=== PATIENT | female | born 1955 | race Caucasian/White ===

== ENCOUNTER 2016-11-12 10:54 | Emergency (ER) | payer OTHER ==
[~2016-11-12] VITALS: Ht 167.6 cm; Wt 68.0 kg
[~2016-11-12 10:54] MED LIST: ADDE30TA PO; ALBU1AER5 INH; ALPR2TAB3 PO; ASPI325T PO; CEFT250T8 PO; FURO1TAB60 PO; FURO20TA PO; METH10CO PO; OXYGENTANK NAS.CANULA; POTA-243 PO; SYMB160A INH; TEMA30CA PO; ZITH250T PO
[2016-11-12 10:56] VITALS: BP 139/66; PULSE 76; RESP 20; TEMP 97.8; O2SAT 95
--- NOTE | 2016-11-12 11:07 | PD ---
Physical Exam Time Seen by Provider: 11:05 Narrative 61yo F c/o fall on L side 4 days ago w/ L hip pain. Unknown if hit head. Denies LOC. Denies anticoagulants. Patient seen in triage. Awaiting bed placement. VS reviewed. Data Data Last Documented VS Vital Signs Date Time Temp Pulse Resp B/P Pulse Ox O2 Delivery O2 Flow Rate FiO2 11/12/16 10:56 97.8 76 20 139/66 95 Room Air MDM Supervised Visit with SAMEERA: Laurel Baez Nov 12, 2016 11:07
--- NOTE | 2016-11-12 11:55 | RADRPT ---
EXAM DATE/TIME: 11/12/2016 11:30 [facility] COMPARISON: No previous studies available for comparison. INDICATIONS : Left hip pain, fall. MEDICAL HISTORY : Stroke. SURGICAL HISTORY : None. ENCOUNTER: Initial ACUITY: 4 - 6 days PAIN SCORE: 10/10 LOCATION: Left hip FINDINGS: The hips are intact with no definite fracture or dislocation. Degenerative changes are present, right worse than left. The bony pelvis is grossly intact. There are vascular calcifications noted incident ally. There is significant degenerative change in the visualized lower lumbar spine. CONCLUSION: No acute bony injury Bernabe Schwartz MD on November 12, 2016 at 11:46 Board Certified Radiologist. This report was verified electronically.
--- NOTE | 2016-11-12 12:03 | PD ---
HPI Chief Complaint: Hip Injury Time Seen by Provider: 11:57 Travel History International Travel<30 days: No Contact w/Intl Traveler<30days: No Traveled to known affect area: No History of Present Illness HPI 61-year-old female with history of left-sided CVA with resultant left-sided hemiplegia here with complaint of left hip pain after fall. Patient had a mechanical fall out of her wheelchair onto the ground several days ago. Initially denied any sort of pain, but over the last several days has noted some bruising on the lateral aspect of the hip with associated pain. She's been able to transfer without any difficulty from her wheelchair to the bed, toilet, etc. Patient is unsure whether she hit her head during the fall but denies any LOC, headache, nausea or vomiting. In a coagulated on aspirin only. PFSH Past Medical History Hx Anticoagulant Therapy: Yes (ASA ) ADHD: Yes Anemia: Yes Arthritis: Yes Anxiety: Yes Heart Rhythm Problems: No Cancer: No Cardiovascular Problems: Yes (CHF) High Cholesterol: No Chemotherapy: No Chest Pain: No Congestive Heart Failure: Yes (2016) COPD: Yes Cerebrovascular Accident: Yes ( L SIDED PARALYSIS ) Diabetes: No Diminished Hearing: No Endocrine: No Gastrointestinal Disorders: No Genitourinary: No Hypertension: No Immune Disorder: No Implanted Vascular Access Dvce: No Musculoskeletal: Yes (MUSCLE SPASMS AND TREMORS) Neurologic: Yes Psychiatric: Yes Reproductive: Yes Respiratory: Yes Radiation Therapy: No Shingles: Yes Thyroid Disease: No ?: Not Menopausal: Yes : 15 Para: 2 Past Surgical History Gynecologic Surgery: Yes (CONE BIOPSY, VULVECTOMY) Other Surgery: Yes (CONE BIOPSY, VULVECTOMY) Social History Alcohol Use: No Tobacco Use: No Substance Use: No Allergies-Medications (Allergen,Severity, Reaction): Coded Allergies: Iodine (Unverified Allergy, Severe, SKIN BREAKOUT, SOB, 04/24/16) Penicillin (Verified Allergy, Severe, 04/24/16) Reported Meds & Prescriptions Reported Meds & Active Scripts Active Oxygen tank (Oxygen) 1 Ea Tank 2 Liter STEVIE.CANULA CONTINUOUS Oxygen Concentrator Portable Gaseous 2 L/min via Nasal Cannula Continuous For 99 months Proair Respiclick Inh (Albuterol Sulfate) 90 Mcg/Act Aerp 1 Puff INH Q4H PRN Lasix (Furosemide) 40 Mg Tab 40 Mg PO DAILY Ceftin (Cefuroxime Axetil) 250 Mg Tab 250 Mg PO BID Zithromax (Azithromycin) 250 Mg Tab 250 Mg PO DIRECTED Take 2 tabs (500 mg) on day 1 then 1 tab daily x 4 days. Klor-Con 10 (Potassium Chloride) 10 Meq Tab 10 Meq PO BID Furosemide 20 Mg Tab 20 Mg PO DAILY Reported Symbicort Inh (Budesonide/Formoterol Fumarate) 160-4.5 Mcg/Act Aero 2 Puff INH Q12HR Temazepam 30 Mg Cap 30 Mg PO HS PRN Methadone Liq (Methadone HCl) 10 Mg/Ml Conc 170 Mg PO DAILY Aspirin 325 Mg Tab 325 Mg PO DAILY Alprazolam 2 Mg Tab 2 Mg PO TID PRN Adderall (Amphetamine-Dextroamphetamine) 30 Mg Tab 30 Mg PO BID Avoid late evening doses. Space doses at least 4 to 6 hours if more than once/day dosing. Review of Systems Except as stated in HPI: all other systems reviewed are Neg Physical Exam Narrative GENERAL: Well-appearing female in no acute distress SKIN: Ecchymosis of the left lateral hip over the greater trochanter region HEAD: Atraumatic. Normocephalic. EYES: Pupils equal and round. No scleral icterus. No injection or drainage. ENT: No nasal bleeding or discharge. Mucous membranes pink and moist. NECK: Supple without midline tenderness CARDIOVASCULAR: Regular rate and rhythm. RESPIRATORY: No accessory muscle use. MUSCULOSKELETAL: No tenderness to palpation of the cervical, thoracic, lumbar spine. Pelvis is stable to AP and lateral compression. Ecchymosis over the greater trochanter region without palpable deformity. Range of motion passively is pain-free, no palpable deformity, rotation. Good distal sensation and pulses. NEUROLOGICAL: Awake and alert. Normal speech. PSYCHIATRIC: Appropriate mood and affect; insight and judgment normal. Data Data Last Documented VS Vital Signs Date Time Temp Pulse Resp B/P Pulse Ox O2 Delivery O2 Flow Rate FiO2 11/12/16 10:56 97.8 76 20 139/66 95 Room Air Orders Hip, Uni(Ap&Lat) W Ap Pelvis (11/12/16 11:10) MDM Medical Decision Making Medical Screen Exam Complete: Yes Emergency Medical Condition: Yes Medical Record Reviewed: Yes Differential Diagnosis 61-year-old female status post CVA with mechanical fall and left hip pain. Exam is consistent with contusion, differential includes fracture, dislocation Narrative Course X-ray of the pelvis and left hip were obtained showing arthritic changes but no acute abnormalities. Patient reassured and discharged home Diagnosis Primary Impression: Contusion of left hip Qualified Code: S70.02XA - Contusion of left hip, initial encounter Referrals: Primary Care Physician as needed Additional Instructions: Tylenol, Motrin as needed for pain. Ice the affected area 20 minutes at a time 3-4 times daily. Med/Other Pt SpecificInfo: No Change to Meds Disposition: 01 DISCHARGE HOME Condition: Stable Maggi Bradford MD Nov 12, 2016 12:03
== END 2016-11-12 13:09 | disposition home or self-care (01) ==
LOC: NEPD 10:54
DX: S70.02XA Contusion of left hip, initial encounter (principal); F90.9 Attention-deficit hyperactivity disorder, unspecified type; D64.9 Anemia, unspecified; I50.9 Heart failure, unspecified; J44.9 Chronic obstructive pulmonary disease, unspecified; I69.954 Hemiplegia and hemiparesis following unspecified cerebrovascular disease affecting left non-dominant side; M19.90 Unspecified osteoarthritis, unspecified site; F41.9 Anxiety disorder, unspecified; W05.0XXA Fall from non-moving wheelchair, initial encounter
CPT/HCPCS: 73502; 99283

== ENCOUNTER 2017-01-06 20:06 | Emergency (ER) | payer OTHER ==
[~2017-01-06] VITALS: Ht 157.5 cm; Wt 65.0 kg
[2017-01-06 20:28] VITALS: BP 146/78; PULSE 84; RESP 20; TEMP 98; O2SAT 97
[2017-01-06] MEDS ORDERED: FUROSEMIDE 100 MG/10 ML VIAL IV PUSH ONE (20:45)
[2017-01-06] MEDS ORDERED: SODIUM CHLORIDE 0.9% FLUSH 10 ML FLUSH IVF PRN (20:45)
[2017-01-06] MEDS: RESP: ALBUTEROL 2.5 MG/IPRATROPIUM 0.5 MG NEB (SCH) INH (20:45)
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
--- NOTE | 2017-01-06 21:04 | RADRPT ---
EXAM DATE/TIME: 01/06/2017 20:50 [facility] COMPARISON: CHEST PA & LAT, April 24, 2016, 16:45. INDICATIONS : Short of breath MEDICAL HISTORY : Stroke. Congestive heart failure. SURGICAL HISTORY : None. ENCOUNTER: Initial ACUITY: 1 day PAIN SCORE: 0/10 LOCATION: chest FINDINGS: The lungs are clear without infiltrate, nodule, or mass. There is no appreciable pleural effusion fo r technique. Heart and mediastinum are unremarkable. There are atherosclerotic calcifications of the aorta due to chronic atherosclerotic disease. Multiple calcified lymph nodes are present in right pa ratracheal and right hilar locations. CONCLUSION: No acute cardiopulmonary disease. Andrea Mendoza MD on January 06, 2017 at 21:01 Board Certified Radiologist. This report was verified electronically.
[2017-01-06 21:14] VITALS: RESP 22
[2017-01-06 21:45] LABS: AUTOMATED NEUTROPHIL # 3.1 TH/MM3 (1.8-7.7); BASOPHIL % 0.8 % (0.0-2.0); EOSINOPHIL # 0.2 TH/MM3 (0-0.4); EOSINOPHIL % 4.4 % (0.0-4.0); HEMATOCRIT 34.4 % (35.0-46.0); HEMO FLAGS DIFF FINAL; LYMPH % 32.2 % (9.0-44.0); LYMPHOCYTE # 1.8 TH/MM3 (1.0-4.8); MEAN CELL VOLUME 87.2 FL (80.0-100.0); MEAN CORPUSCULAR HEMOGLOBIN 29.1 PG (27.0-34.0); MEAN CORPUSCULAR HGB CONC 33.4 % (32.0-36.0); MONO % 6.9 % (0.0-8.0); NEUT % 55.7 % (16.0-70.0); PLATELET COUNT 213 TH/MM3 (150-450); RED BLOOD COUNT 3.95 MIL/MM3 (4.00-5.30); RED CELL DISTRIBUTION WIDTH 14.5 % (11.6-17.2); WHITE BLOOD COUNT 5.5 TH/MM3 (4.0-11.0)
[2017-01-06 21:59] LABS: APTT (PATIENT) 25.2 SEC (24.3-30.1); PROTHROMBIN TIME - PATIENT 10.6 SEC (9.8-11.6)
[2017-01-06 22:00] LABS: ALT (GPT) 16 U/L (10-53); ANION GAP 6 MEQ/L (5-15); AST (GOT) 34 U/L (15-37); BICARBONATE 29.2 MEQ/L (21.0-32.0); BLOOD UREA NITROGEN 11 MG/DL (7-18); CHLORIDE 104 MEQ/L (98-107); GLOMERULAR FILTRATION RATE 83 ML/MIN (>89); POTASSIUM 4.4 MEQ/L (3.5-5.1); SODIUM (NA) 139 MEQ/L (136-145)
[2017-01-06 22:06] LABS: BACTERIA, URINE RARE /hpf; BLOOD, URINE NEG (NEG); COMMENT (UR) CULT NOT INDICATED; CULTURE IF INDICATED CULT NOT INDICATED; GLUCOSE,URINE NEG (NEG); KETONE, URINE NEG (NEG); MUCUS URINE FEW /lpf (OCC); NITRITE,URINE NEG (NEG); SQUAMOUS EPITHELIAL CELL URINE 3 /hpf (0-5); URINE COLOR YELLOW (YELLW/STRAW)
[2017-01-06 22:07] LABS: ALKALINE PHOSPHATASE 92 U/L (45-117); CREATINE KINASE 151 U/L (26-192); TOTAL BILIRUBIN ADULT 0.6 MG/DL (0.2-1.0)
[2017-01-06 22:20] LABS: CKMB 0.8 NG/ML (0.5-3.6)
[2017-01-06] MEDS ORDERED: methylPREDNISolone SOD SUCC 125 MG/2 ML VIAL IV PUSH ONE (22:45)
[2017-01-06] MEDS ORDERED: AZIT500T2 PO (23:26)
[2017-01-06] MEDS ORDERED: ALBUAER3 INH (23:26)
[2017-01-06] MEDS ORDERED: PRED20 PO (23:26)
--- NOTE | 2017-01-07 13:43 | EKG ---
Date Performed: 01/06/2017 Time Performed: 21:20:30 PTAGE: 61 years EKG: Sinus rhythm POSSIBLE LATERAL MYOCARDIAL INFARCTION BORDERLINE ECG PREVIOUS TRACING : 01/06/2017 21.19 No significant change from previous tracing noted. DOCTOR: Negro Zuniga Interpretating Date/Time 01/07/2017 13:42:19
== END 2017-01-07 00:02 | disposition home or self-care (01) ==
LOC: NEPE 20:06
DX: J44.1 Chronic obstructive pulmonary disease with (acute) exacerbation (principal); I50.9 Heart failure, unspecified; Z99.81 Dependence on supplemental oxygen; Z79.82 Long term (current) use of aspirin
CPT/HCPCS: 71010; 80053; 81001; 82550; 82552; 83735; 83880; 84484; 85025; 85610; 85730; 93005; 94640; 94664; 96374; 96375; 99284; J1940; J2930

== ENCOUNTER 2017-06-18 12:13 | Emergency (ER) | payer OTHER ==
[~2017-06-18] VITALS: Ht 162.6 cm; Wt 61.4 kg
[~2017-06-18 12:13] MED LIST changes: +ALBUAER3 INH; +ASPI-183 PO; -ASPI325T PO; +AZIT500T2 PO; +KLOR10TA PO; -POTA-243 PO; +PRED20 PO
[2017-06-18 12:16] VITALS: BP 141/84; PULSE 85; RESP 17; TEMP 98.3; O2SAT 96
[2017-06-18] MEDS ORDERED: ASPI81CH6 CHEW (12:47)
--- NOTE | 2017-06-18 13:32 | PD ---
HPI Chief Complaint: Pain: Acute or Chronic Time Seen by Provider: 13:09 Travel History International Travel<30 days: No Contact w/Intl Traveler<30days: No Traveled to known affect area: No History of Present Illness HPI 62-year-old female complains of right leg pain. Patient states that she started having right leg pain for the past several weeks. Patient denies any injury. Patient has history of chronic low back pain and disc disease. Patient has been taking methadone for pain. Patient states the pain is sharp pain localized on the right thigh area. Patient states that she has occasional sharp pain radiating from the right foot up to the right leg. Patient denies any fever chills. Patient has history of CVA with left-sided weakness. Patient also has history CHF, COPD, anemia, chronic back pain. Patient also complains of increased redness swelling left low leg for the past week or so. Patient states the redness got better recently. PFSH Past Medical History Hx Anticoagulant Therapy: Yes (ASA ) ADHD: Yes Anemia: Yes Arthritis: Yes Anxiety: Yes Heart Rhythm Problems: No Cancer: No Cardiovascular Problems: Yes (CHF) High Cholesterol: No Chemotherapy: No Chest Pain: No Congestive Heart Failure: Yes (2016) COPD: Yes Cerebrovascular Accident: Yes ( L SIDED PARALYSIS ) Diabetes: No Diminished Hearing: No Endocrine: No Gastrointestinal Disorders: No Genitourinary: No Hypertension: No Immune Disorder: No Implanted Vascular Access Dvce: No Musculoskeletal: Yes (MUSCLE SPASMS AND TREMORS) Neurologic: Yes Psychiatric: Yes Reproductive: Yes Respiratory: Yes Immunizations Current: Yes Radiation Therapy: No Shingles: Yes Thyroid Disease: No Tetanus Vaccination: < 5 Years Influenza Vaccination: No Menopausal: Yes : 15 Para: 2 Past Surgical History Gynecologic Surgery: Yes (CONE BIOPSY, VULVECTOMY) Other Surgery: Yes (CONE BIOPSY, VULVECTOMY) Social History Alcohol Use: Yes (TWICE A MONTH) Tobacco Use: Yes Substance Use: No Allergies-Medications (Allergen,Severity, Reaction): Coded Allergies: iodine (Unverified Allergy, Severe, SKIN BREAKOUT, SOB, 06/18/17) penicillin G (Unverified Allergy, Severe, 06/18/17) potassium iodide (Unverified Allergy, Severe, SKIN BREAKOUT, SOB, 06/18/17) povidone-iodine (Unverified Allergy, Severe, SKIN BREAKOUT, SOB, 06/18/17) sodium iodide (Unverified Allergy, Severe, SKIN BREAKOUT, SOB, 06/18/17) sodium iodide (Unverified Allergy, Severe, SKIN BREAKOUT, SOB, 06/18/17) Reported Meds & Prescriptions Reported Meds & Active Scripts Active Prednisone 20 Mg Tab 20 Mg PO BID 5 Days Proair Hfa 8.5 GM Inh (Albuterol Sulfate) 90 Mcg/Act Aer 2 Puff INH Q4-6H PRN 108 mcg/actuation Azithromycin 500 Mg Tab 500 Mg PO DAILY Oxygen tank (Oxygen) 1 Ea Tank 2 Liter [facility] CONTINUOUS Oxygen Concentrator Portable Gaseous 2 L/min via Nasal Cannula Continuous For 99 months Proair Respiclick Inh (Albuterol Sulfate) 90 Mcg/Act Aerp 1 Puff INH Q4H PRN Lasix (Furosemide) 40 Mg Tab 40 Mg PO DAILY Klor-Con 10 (Potassium Chloride) 10 Meq Tab 10 Meq PO BID Furosemide 20 Mg Tab 20 Mg PO DAILY Reported Aspirin Low Dose (Aspirin) 81 Mg Chew 81 Mg CHEW DAILY Symbicort Inh (Budesonide/Formoterol Fumarate) 160-4.5 Mcg/Act Aero 2 Puff INH Q12HR Temazepam 30 Mg Cap 30 Mg PO HS PRN Methadone Liq (Methadone HCl) 10 Mg/Ml Conc 170 Mg PO DAILY Aspirin 325 Mg Tab 325 Mg PO DAILY Alprazolam 2 Mg Tab 2 Mg PO TID PRN Adderall (Amphetamine-Dextroamphetamine) 30 Mg Tab 30 Mg PO BID Avoid late evening doses. Space doses at least 4 to 6 hours if more than once/day dosing. Review of Systems General / Constitutional: No: Fever Eyes: No: Visual changes HENT: No: Headaches Cardiovascular: No: Chest Pain or Discomfort Respiratory: No: Shortness of Breath Gastrointestinal: No: Abdominal Pain Genitourinary: No: Dysuria Musculoskeletal: Positive: Pain Skin: No Rash Neurologic: No: Weakness Psychiatric: No: Depression Endocrine: No: Polydipsia Hematologic/Lymphatic: No: Easy Bruising Physical Exam Narrative GENERAL: Well-nourished, well-developed patient. SKIN: Focused skin assessment warm/dry. HEAD: Normocephalic. EYES: No scleral icterus. No injection or drainage. NECK: Supple, trachea midline. No JVD or lymphadenopathy. CARDIOVASCULAR: Regular rate and rhythm without murmurs, gallops, or rubs. RESPIRATORY: Breath sounds equal bilaterally. No accessory muscle use. GASTROINTESTINAL: Abdomen soft, non-tender, nondistended. MUSCULOSKELETAL: No cyanosis, or edema. Patient had mild diffuse tenderness of the right thigh area. No redness no heat noted. Mild tenderness on palpation right popliteal area. Negative Homans sign. Patient has mild redness swelling left low leg. No tenderness on palpation left calf area. Negative Homans sign. Full range of motion the left lower extremity. BACK: Nontender without obvious deformity. No CVA tenderness. Neurologic exam: Patient with lethargy however answer questions appropriately. Data Data Last Documented VS Vital Signs Date Time Temp Pulse Resp B/P (MAP) Pulse Ox O2 Delivery O2 Flow Rate FiO2 06/18/17 12:40 16 06/18/17 12:16 98.3 85 141/84 (103) 96 Orders Orders Femur (Ap & Lat/2vws) (06/18/17 13:26) Us Leg Venous Doppler (06/18/17 13:26) MDM Medical Decision Making Medical Screen Exam Complete: Yes Emergency Medical Condition: Yes Interpretation(s) Last Impressions Lower Extremity Ultrasound 06/18/17 1326 Signed Impressions: Service Date/Time: Sunday, June 18, 2017 13:44 - CONCLUSION: No DVT right leg. Kedar Nolan MD Femur X-Ray 06/18/17 1326 Signed Impressions: Service Date/Time: Sunday, June 18, 2017 14:16 - CONCLUSION: Degenerative changes knee and hip joint. No acute bony abnormality. Antonio Bernstein MD Differential Diagnosis Differential diagnosis including musculoskeletal, sciatica, cellulitis, DVT. Narrative Course 62-year-old female with right leg pain. History of chronic back pain. Patient is on methadone. Patient also has some mild redness swelling on the left low leg. Diagnosis Primary Impression: Arthralgia of right lower leg Additional Impression: Cellulitis of left lower leg Patient Instructions: General Instructions Additional Instructions: Take medications as directed. Follow-up with personal physician. Return if worse. Med/Other Pt SpecificInfo: Prescription(s) given Scripts Clindamycin (Clindamycin) 150 Mg Cap 300 MG PO TID for Infection, #30 CAP 0 Refills Prov: Srikanth Niño MD 06/18/17 Sulfamethoxazole-Trimethoprim (Bactrim DS) 800-160 Mg Tab 1 TAB PO BID for Infection, #20 TAB 0 Refills Prov: Srikanth Niño MD 06/18/17 Promethazine (Phenergan) 25 Mg Tablet 25 MG PO Q6H Y for NAUSEA OR VOMITING, #6 TAB 0 Refills Prov: Srikanth Niño MD 06/18/17 Disposition: 01 DISCHARGE HOME Condition: Stable Srikanth Niño MD Jun 18, 2017 13:32
--- NOTE | 2017-06-18 14:20 | RADRPT ---
EXAM DATE/TIME: 06/18/2017 13:44 [facility] COMPARISON: No previous studies available for comparison. INDICATIONS : Right leg pain. MEDICAL HISTORY : Chronic obstructive pulmonary disease. Arthritis. Congestive heart failure. Dyspnea. Shingles. SURGICAL HISTORY : Left ankle surgery. Cone biopsy. Vulvectomy. ENCOUNTER: Initial ACUITY: 3 weeks PAIN SCORE: 3/10 LOCATION: Right leg. TECHNIQUE: Venous ultrasound of the leg was performed from the inguinal ligament to the proximal calf. Real-yeni e, color Doppler and spectral tracing, compression and augmentation techniques were used. FINDINGS: There is normal compressibility of the deep venous system from the inguinal region to the proximal ca lf. No echogenic clot is seen in the lumen of the common femoral, femoral, popliteal, and posterior tibial veins. There is a normal response of the venous system to proximal and distal augmentation an d respiration. CONCLUSION: No DVT right leg. Kedar Nolan MD on June 18, 2017 at 14:17 Board Certified Radiologist. This report was verified electronically.
--- NOTE | 2017-06-18 14:32 | RADRPT ---
EXAM DATE/TIME: 06/18/2017 14:16 [facility] COMPARISON: No previous studies available for comparison. INDICATIONS : Right mid-shaft to distal femur pain. No known injury. MEDICAL HISTORY : Stroke. SURGICAL HISTORY : None. ENCOUNTER: Initial ACUITY: 2 weeks PAIN SCORE: 7/10 LOCATION: Right femur FINDINGS: Two view examination of the right femur demonstrates no evidence of fracture or dislocation. Bony mi neralization is normal. The soft tissue structures are intact. Degenerative changes are noted of the knee and the hip joint. CONCLUSION: Degenerative changes knee and hip joint. No acute bony abnormality. Antonio Bernstein MD on June 18, 2017 at 14:29 Board Certified Radiologist. This report was verified electronically.
[2017-06-18] MEDS ORDERED: BACT800T5 PO (15:23)
[2017-06-18] MEDS ORDERED: CLIN150C14 PO (15:23)
[2017-06-18] MEDS ORDERED: PROM25TA10 PO (15:23)
[2017-06-18 15:30] VITALS: BP 171/72; PULSE 67; RESP 16; O2SAT 97
[2017-06-18] MEDS ORDERED: DEXAMETHASONE SOD PHOS 4 MG/ML VIAL IM ONE (15:30)
== END 2017-06-18 15:53 | disposition home or self-care (01) ==
LOC: NEPD 12:13
DX: M79.604 Pain in right leg (principal); L03.116 Cellulitis of left lower limb; I50.9 Heart failure, unspecified; J44.9 Chronic obstructive pulmonary disease, unspecified; I69.354 Hemiplegia and hemiparesis following cerebral infarction affecting left non-dominant side; Z72.0 Tobacco use
CPT/HCPCS: 73552; 93971; 96372; 99284; J1100

== ENCOUNTER 2017-06-20 08:10 | Emergency (ER) | payer OTHER ==
[~2017-06-20] VITALS: Ht 167.6 cm; Wt 65.0 kg
[~2017-06-20 08:10] MED LIST changes: +ASPI81CH6 CHEW; +BACT800T5 PO; -CEFT250T8 PO; +CLIN150C14 PO; +PROM25TA10 PO; -ZITH250T PO
== END 2017-06-20 08:44 | disposition left against medical advice (07) ==
LOC: NEPE 08:10
DX: Z00.00 Encounter for general adult medical examination without abnormal findings (principal); Z53.21 Procedure and treatment not carried out due to patient leaving prior to being seen by health care provider
CPT/HCPCS: 99281

== ENCOUNTER 2017-08-10 12:00 | Emergency (ER) | payer OTHER ==
[~2017-08-10] VITALS: Ht 170.2 cm; Wt 62.0 kg
[2017-08-10 12:10] VITALS: BP 156/69; PULSE 85; RESP 18; TEMP 98.3; O2SAT 95
--- NOTE | 2017-08-10 14:31 | PD ---
HPI Chief Complaint: Skin Problem Time Seen by Provider: 13:21 Travel History International Travel<30 days: No Contact w/Intl Traveler<30days: No Traveled to known affect area: No History of Present Illness HPI 62-year-old female with a history of left-sided CVA secondary to a TBI, COPD, congestive heart failure, DM, lower extremity cellulitis presents emergency department complaining of left lower extremity pain that is worsened over the last couple days. States that she started having pain in her left lower extremity in March and was treated with antibiotics for the same issue. States that she completed her antibiotics and the infection somewhat resolved but again has worsened over the last couple days. She denies fever, chills, chest pain, unusual shortness of breath. Denies numbness or tingling. She has difficulty with left sided extremity movement secondary to her CVA. PFSH Past Medical History Hx Anticoagulant Therapy: Yes (ASA ) ADHD: Yes Anemia: Yes Arthritis: Yes Anxiety: Yes Heart Rhythm Problems: No Cancer: No Cardiovascular Problems: Yes (CHF) High Cholesterol: No Chemotherapy: No Chest Pain: No Congestive Heart Failure: Yes (2016) COPD: Yes Cerebrovascular Accident: Yes ( L SIDED PARALYSIS ) Diabetes: No Diminished Hearing: No Endocrine: No Gastrointestinal Disorders: No Genitourinary: No Hypertension: No Immune Disorder: No Implanted Vascular Access Dvce: No Musculoskeletal: Yes (MUSCLE SPASMS AND TREMORS) Neurologic: Yes Psychiatric: Yes Reproductive: Yes Respiratory: Yes Immunizations Current: Yes Radiation Therapy: No Shingles: Yes Thyroid Disease: No Menopausal: Yes : 15 Para: 2 Past Surgical History Gynecologic Surgery: Yes (CONE BIOPSY, VULVECTOMY) Other Surgery: Yes (CONE BIOPSY, VULVECTOMY) Social History Alcohol Use: Yes Tobacco Use: Yes Substance Use: No Allergies-Medications (Allergen,Severity, Reaction): Coded Allergies: iodine (Unverified Allergy, Severe, SKIN BREAKOUT, SOB, 08/10/17) penicillin G (Unverified Allergy, Severe, 08/10/17) potassium iodide (Unverified Allergy, Severe, SKIN BREAKOUT, SOB, 08/10/17) povidone-iodine (Unverified Allergy, Severe, SKIN BREAKOUT, SOB, 08/10/17) sodium iodide (Unverified Allergy, Severe, SKIN BREAKOUT, SOB, 08/10/17) sodium iodide (Unverified Allergy, Severe, SKIN BREAKOUT, SOB, 08/10/17) Reported Meds & Prescriptions Reported Meds & Active Scripts Active Bactrim DS (Sulfamethoxazole-Trimethoprim) 800-160 Mg Tab 1 Tab PO BID Reported Aspirin Low Dose (Aspirin) 81 Mg Chew 81 Mg CHEW DAILY Temazepam 30 Mg Cap 30 Mg PO HS PRN Methadone Liq (Methadone HCl) 10 Mg/Ml Conc 170 Mg PO DAILY Alprazolam 2 Mg Tab 2 Mg PO TID PRN Adderall (Amphetamine-Dextroamphetamine) 30 Mg Tab 30 Mg PO BID Avoid late evening doses. Space doses at least 4 to 6 hours if more than once/day dosing. Review of Systems Except as stated in HPI: all other systems reviewed are Neg Physical Exam Narrative GENERAL: Well developed, well-nourished in no apparent distress, resting comfortably in bed SKIN: Focused skin assessment warm/dry. Left lower [id number] to palpation, erythema and edema present. Pulses present. HEAD: Atraumatic. Normocephalic. EYES: Pupils equal and round. No scleral icterus. No injection or drainage. ENT: No nasal bleeding or discharge. Mucous membranes pink and moist. NECK: Trachea midline. No JVD. CARDIOVASCULAR: Regular rate and rhythm. No murmur appreciated. RESPIRATORY: No accessory muscle use. Clear to auscultation. Breath sounds equal bilaterally. GASTROINTESTINAL: Abdomen soft, non-tender, nondistended. Hepatic and splenic margins not palpable. MUSCULOSKELETAL: No obvious deformities. No clubbing. No cyanosis. No edema. Left-sided contractures of upper extremity. Left lower extremity limited range of motion to both active and passive. Tender to palpation left lower extremity with edema and erythema. No lymph angiopathic spread. NEUROLOGICAL: Awake and alert. No obvious cranial nerve deficits. Motor grossly within normal limits. Normal speech. PSYCHIATRIC: Appropriate mood and affect; insight and judgment normal. Data Data Last Documented VS Vital Signs Date Time Temp Pulse Resp B/P (MAP) Pulse Ox O2 Delivery O2 Flow Rate FiO2 08/10/17 15:12 64 15 134/84 (101) 99 Room Air 08/10/17 12:10 98.3 Orders Orders Us Leg Venous Doppler (08/10/17 ) Complete Blood Count With Diff (08/10/17 14:31) Urinalysis - C+S If Indicated (08/10/17 14:31) Blood Glucose (08/10/17 14:31) Ecg Monitoring (08/10/17 14:31) Iv Access Insert/Monitor (08/10/17 14:31) Oximetry (08/10/17 14:31) Oxygen Administration (08/10/17 14:31) Basic Metabolic Panel (Bmp) (08/10/17 14:31) Ed Discharge Order (08/10/17 15:57) Labs Laboratory Tests Test 08/10/17 14:48 White Blood Count 4.6 TH/MM3 Red Blood Count 3.57 MIL/MM3 Hemoglobin 11.2 GM/DL Hematocrit 31.7 % Mean Corpuscular Volume 88.7 FL Mean Corpuscular Hemoglobin 31.2 PG Mean Corpuscular Hemoglobin Concent 35.2 % Red Cell Distribution Width 14.5 % Platelet Count 161 TH/MM3 Mean Platelet Volume 9.9 FL Neutrophils (%) (Auto) 47.9 % Lymphocytes (%) (Auto) 36.1 % Monocytes (%) (Auto) 10.7 % Eosinophils (%) (Auto) 4.5 % Basophils (%) (Auto) 0.8 % Neutrophils # (Auto) 2.2 TH/MM3 Lymphocytes # (Auto) 1.7 TH/MM3 Monocytes # (Auto) 0.5 TH/MM3 Eosinophils # (Auto) 0.2 TH/MM3 Basophils # (Auto) 0.0 TH/MM3 CBC Comment DIFF FINAL Differential Comment Urine Color YELLOW Urine Turbidity CLEAR Urine pH 6.5 Urine Specific [place] 1.030 Urine Protein NEG mg/dL Urine Glucose (UA) NEG mg/dL Urine Ketones NEG mg/dL Urine Occult Blood NEG Urine Nitrite NEG Urine Bilirubin NEG Urine Urobilinogen 8.0 MG/DL Urine Leukocyte Esterase SMALL Urine RBC 1 /hpf Urine WBC LESS THAN 1 /hpf Urine Squamous Epithelial Cells 5 /hpf Urine Hyaline Casts 1 /lpf Microscopic Urinalysis Comment CULT NOT INDICATED Blood Urea Nitrogen 16 MG/DL Creatinine 0.76 MG/DL Random Glucose 87 MG/DL Calcium Level 8.7 MG/DL Sodium Level 140 MEQ/L Potassium Level 3.9 MEQ/L Chloride Level 104 MEQ/L Carbon Dioxide Level 30.5 MEQ/L Anion Gap 6 MEQ/L Estimat Glomerular Filtration Rate 77 ML/MIN [facility] Medical Decision Making Medical Screen Exam Complete: Yes Emergency Medical Condition: Yes Differential Diagnosis Left lower extremity cellulitis, DVT, abrasion Narrative Course 62-year-old female with complex medical history presents emergency department complaining of left lower extremity pain and swelling. Says she was treated for this earlier in the year 2 good medications which help reduce the swelling and pain but has returned over the last several days. Vital signs are stable. Ultrasound ordered as patient does have a chronic complete medical history. Patient is not completely reliable source. CBC & BMP Diagram 08/10/17 14:48 Calcium Level 8.7 Patient has an allergy to penicillin. Will avoid penicillin and Keflex. Patient be discharged Bactrim. Advised follow-up with primary care physician within 2-3 days. Return to the emergency room for worsening or persistent symptoms. She is to continue her home medications which include pain medications. Diagnosis Primary Impression: Cellulitis Qualified Codes: L03.116 - Cellulitis of left lower limb Referrals: Primary Care Physician Additional Instructions: Take all medications as prescribed. Follow-up with primary care physician within 2-3 days. Return to emergency for worsening persistent symptoms. Scripts Sulfamethoxazole-Trimethoprim (Bactrim DS) 800-160 Mg Tab 1 TAB PO BID for Infection, #20 TAB 0 Refills Prov: Yue Horowitz MD 08/10/17 Disposition: 01 DISCHARGE HOME Condition: Stable Aurora Garcia Aug 10, 2017 14:31
[2017-08-10 15:11] VITALS: O2SAT 97
[2017-08-10 15:12] VITALS: BP 134/84; PULSE 64; RESP 15; O2SAT 99
[2017-08-10 15:19] LABS: AUTOMATED NEUTROPHIL # 2.2 TH/MM3 (1.8-7.7); BASOPHIL % 0.8 % (0.0-2.0); EOSINOPHIL # 0.2 TH/MM3 (0-0.4); EOSINOPHIL % 4.5 % (0.0-4.0); HEMATOCRIT 31.7 % (35.0-46.0); HEMOGLOBIN 11.2 GM/DL (11.6-15.3); LYMPH % 36.1 % (9.0-44.0); LYMPHOCYTE # 1.7 TH/MM3 (1.0-4.8); MEAN CELL VOLUME 88.7 FL (80.0-100.0); MEAN CORPUSCULAR HEMOGLOBIN 31.2 PG (27.0-34.0); MEAN CORPUSCULAR HGB CONC 35.2 % (32.0-36.0); MEAN PLATELET VOLUME 9.9 FL (7.0-11.0); MONO % 10.7 % (0.0-8.0); MONOCYTE # 0.5 TH/MM3 (0-0.9); NEUT % 47.9 % (16.0-70.0); PLATELET COUNT 161 TH/MM3 (150-450); RED BLOOD COUNT 3.57 MIL/MM3 (4.00-5.30); RED CELL DISTRIBUTION WIDTH 14.5 % (11.6-17.2); WHITE BLOOD COUNT 4.6 TH/MM3 (4.0-11.0)
[2017-08-10 15:22] LABS: BILIRUBIN, URINE NEG (NEG); BLOOD, URINE NEG (NEG); GLUCOSE,URINE NEG (NEG); HYALINE CAST, URINE 1 /lpf (RARE); KETONE, URINE NEG (NEG); NITRITE,URINE NEG (NEG); PH, URINE 6.5 (5.0-8.5); SQUAMOUS EPITHELIAL CELL URINE 5 /hpf (0-5); URINE COLOR YELLOW (YELLW/STRAW); URINE LEUKOCYTE ESTERASE SMALL (NEG)
[2017-08-10 15:36] LABS: BICARBONATE 30.5 MEQ/L (21.0-32.0); CALCIUM 8.7 MG/DL (8.5-10.1); CREATININE 0.76 MG/DL (0.50-1.00)
--- NOTE | 2017-08-10 15:47 | RADRPT ---
EXAM DATE/TIME: 08/10/2017 14:50 [facility] COMPARISON: US LEG LEFT VENOUS DOPPLER, August 19, 2014, 15:09. INDICATIONS : Left leg pain. MEDICAL HISTORY : COPD. CHF. SURGICAL HISTORY : Left ankle surgery. Core biopsy. Vulvectomy. ENCOUNTER: Subsequent ACUITY: 2 weeks PAIN SCORE: 6/10 LOCATION: Left leg. TECHNIQUE: Venous ultrasound of the leg was performed from the inguinal ligament to the proximal calf. Real-yeni e, color Doppler and spectral tracing, compression and augmentation techniques were used. FINDINGS: There is normal compressibility of the deep venous system from the inguinal region to the proximal ca lf. No echogenic clot is seen in the lumen of the common femoral, femoral, popliteal, and posterior tibial veins. There is a normal response of the venous system to proximal and distal augmentation an d respiration. CONCLUSION: No DVT. Bernabe Martinez MD on August 10, 2017 at 15:44 Board Certified Radiologist. This report was verified electronically.
[2017-08-10] MEDS ORDERED: BACT800T5 PO (15:55)
--- NOTE | 2017-08-10 18:03 | PD ---
Physical Exam Date Seen by Provider: Aug 10, 2017 Time Seen by Provider: 14:00 Narrative I, Dr. Horowitz, have reviewed the advance practice practitioner's documentation and am in agreement, met with the patient face to face, made the diagnosis, and the medical decision making was done by me. *My assessment and Findings: Patient seen and evaluated with PA, please see PA notes for further details. Here with leg redness, swelling, with previous history of cellulitis of the legs. Tender to palpation of the lower leg area. Vital signs are stable in the ER. Laboratory Tests Test 08/10/17 14:48 Red Blood Count 3.57 MIL/MM3 (4.00-5.30) Hemoglobin 11.2 GM/DL (11.6-15.3) Hematocrit 31.7 % (35.0-46.0) Monocytes (%) (Auto) 10.7 % (0.0-8.0) Eosinophils (%) (Auto) 4.5 % (0.0-4.0) Urine Urobilinogen 8.0 MG/DL (LESS THAN Urine Leukocyte Esterase SMALL (NEG) Estimat Glomerular Filtration Rate 77 ML/MIN (>89) Ultrasound shows no signs of DVT. It appears that she has cellulitis of the lower leg area, has a history of intermittent problems with cellulitis. At this point, plan would be to treat her with p.o. antibiotics and have her follow -up with primary care doctor. Return for worsening symptoms as necessary. The plan has been discussed with her and she states understanding. Data Data Last Documented VS Vital Signs Date Time Temp Pulse Resp B/P (MAP) Pulse Ox O2 Delivery O2 Flow Rate FiO2 08/10/17 16:28 (101) 08/10/17 15:12 64 15 99 Room Air 08/10/17 12:10 98.3 Orders Orders Us Leg Venous Doppler (08/10/17 ) Complete Blood Count With Diff (08/10/17 14:31) Urinalysis - C+S If Indicated (08/10/17 14:31) Blood Glucose (08/10/17 14:31) Ecg Monitoring (08/10/17 14:31) Iv Access Insert/Monitor (08/10/17 14:31) Oximetry (08/10/17 14:31) Oxygen Administration (08/10/17 14:31) Basic Metabolic Panel (Bmp) (08/10/17 14:31) Ed Discharge Order (08/10/17 15:57) Labs Laboratory Tests Test 08/10/17 14:48 White Blood Count 4.6 TH/MM3 Red Blood Count 3.57 MIL/MM3 Hemoglobin 11.2 GM/DL Hematocrit 31.7 % Mean Corpuscular Volume 88.7 FL Mean Corpuscular Hemoglobin 31.2 PG Mean Corpuscular Hemoglobin Concent 35.2 % Red Cell Distribution Width 14.5 % Platelet Count 161 TH/MM3 Mean Platelet Volume 9.9 FL Neutrophils (%) (Auto) 47.9 % Lymphocytes (%) (Auto) 36.1 % Monocytes (%) (Auto) 10.7 % Eosinophils (%) (Auto) 4.5 % Basophils (%) (Auto) 0.8 % Neutrophils # (Auto) 2.2 TH/MM3 Lymphocytes # (Auto) 1.7 TH/MM3 Monocytes # (Auto) 0.5 TH/MM3 Eosinophils # (Auto) 0.2 TH/MM3 Basophils # (Auto) 0.0 TH/MM3 CBC Comment DIFF FINAL Differential Comment Urine Color YELLOW Urine Turbidity CLEAR Urine pH 6.5 Urine Specific [place] 1.030 Urine Protein NEG mg/dL Urine Glucose (UA) NEG mg/dL Urine Ketones NEG mg/dL Urine Occult Blood NEG Urine Nitrite NEG Urine Bilirubin NEG Urine Urobilinogen 8.0 MG/DL Urine Leukocyte Esterase SMALL Urine RBC 1 /hpf Urine WBC LESS THAN 1 /hpf Urine Squamous Epithelial Cells 5 /hpf Urine Hyaline Casts 1 /lpf Microscopic Urinalysis Comment CULT NOT INDICATED Blood Urea Nitrogen 16 MG/DL Creatinine 0.76 MG/DL Random Glucose 87 MG/DL Calcium Level 8.7 MG/DL Sodium Level 140 MEQ/L Potassium Level 3.9 MEQ/L Chloride Level 104 MEQ/L Carbon Dioxide Level 30.5 MEQ/L Anion Gap 6 MEQ/L Estimat Glomerular Filtration Rate 77 ML/MIN [facility] Medical Record Reviewed: Yes Supervised Visit with SAMEERA: Yes Diagnosis Primary Impression: Cellulitis Qualified Codes: L03.116 - Cellulitis of left lower limb Referrals: Primary Care Physician Patient Instructions: General Instructions, Cellulitis (ED) Departure Forms: Tests/Procedures Additional Instruction: Take all medications as prescribed. Follow-up with primary care physician within 2-3 days. Return to emergency for worsening persistent symptoms. Scripts Sulfamethoxazole-Trimethoprim (Bactrim DS) 800-160 Mg Tab 1 TAB PO BID for Infection, #20 TAB 0 Refills Prov: Yue Horowitz MD 08/10/17 Disposition: 01 DISCHARGE HOME Condition: Stable Yue Horowitz MD Aug 10, 2017 18:03
== END 2017-08-10 16:29 | disposition home or self-care (01) ==
LOC: NEPC 12:00
DX: L03.116 Cellulitis of left lower limb (principal); E11.9 Type 2 diabetes mellitus without complications; J44.9 Chronic obstructive pulmonary disease, unspecified; Z88.0 Allergy status to penicillin; I50.9 Heart failure, unspecified; Z72.0 Tobacco use; Z86.73 Personal history of transient ischemic attack (TIA), and cerebral infarction without residual deficits; Z88.2 Allergy status to sulfonamides; Z79.01 Long term (current) use of anticoagulants
CPT/HCPCS: 80048; 81001; 85025; 93971

== ENCOUNTER 2017-12-03 09:03 | Inpatient (IN) ==
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
[2017-12-03 10:58] LABS: Baso # (Auto) 0.1 th/mm3 (0.0-0.2); Baso % (Auto) 0.6 % (0.0-2.0); Eos # (Auto) 0.1 th/mm3 (0.0-0.4); Eos % (Auto) 0.8 % (0.0-4.0); Hematocrit 31.2 % (35.0-46.0); Hemoglobin 10.2 gm/dL (11.6-15.3); Lymph # (Auto) 1.6 th/mm3 (1.0-4.8); Lymph % (Auto) 16.8 % (9.0-44.0); Mean Corpuscular HGB Conc 32.7 % (32.0-36.0); Mean Corpuscular Hemoglobin 29.1 pg (27.0-34.0); Mean Platelet Volume 11.1 fL (7.0-11.0); Mono # (Auto) 0.6 th/mm3 (0.0-0.9); Mono % (Auto) 6.2 % (0.0-8.0); Neut # (Auto) 7.2 th/mm3 (1.8-7.7); Neut % (Auto) 75.6 % (16.0-70.0); Platelet Count 194 th/mm3 (150-450); Red Blood Count 3.51 mil/mm3 (4.00-5.30); Red Cell Distribution Width 14.1 % (11.6-17.2); White Blood Count 9.6 th/mm3 (4.0-11.0)
--- NOTE | 2017-12-03 11:09 | CT ---
EXAM DATE: 12/03/2017 10:55 AM EDT AGE/SEX: 62 years / Female INDICATIONS: Patient fell, forehead abrasion CLINICAL DATA: This is the patient's initial encounter. Patient reports that signs and symptoms have been present for 1 day and indicates a pain score of 3/10. MEDICAL/SURGICAL HISTORY: None. None. RADIATION DOSE: 37.51 CTDI (mGy) COMPARISON: [facility] [place], CT BRAIN W/O CONTRAST, 12/02/2015. . TECHNIQUE: CT of the head without contrast. Using automated exposure control and adjustment of the mA and/or kV according to patient size, radiation dose was kept as low as reasonably achievable to ob tain optimal diagnostic quality images. DICOM format image data is available electronically for revi ew and comparison. FINDINGS: There is no evidence for intracranial hemorrhage, mass effect, mass lesions, edema, or extra-axial fl uid collections. The visualized bony structures appear intact. The ventricles are normal size for t he patient's age. There are no signs of acute infarction for technique. CONCLUSION: Unremarkable study. Electronically signed by: Alina Mendoza MD 12/03/2017 11:08 AM EDT
[2017-12-03 11:13] LABS: Activated Partial Thrombo Time 22.9 sec (24.3-30.1); Alanine Aminotransferase 15 U/L (10-53); Albumin 3.6 g/dL (3.4-5.0); Anion Gap 10 meq/L (5-15); Aspartate Aminotransferase 16 U/L (15-37); Blood Urea Nitrogen 20 mg/dL (7-18); Calcium 8.5 mg/dL (8.5-10.1); Carbon Dioxide 24.8 meq/L (21.0-32.0); Chloride 105 meq/L (98-107); Glomerular Filtration Rate 43 mL/min (>89); Glucose,Random 118 mg/dL (74-106); INR 1.1 Ratio; Lipase 113 U/L (73-393); Prothrombin Time 10.8 sec (9.8-11.6); Sodium 140 meq/L (136-145)
[2017-12-03 11:15] LABS: Alkaline Phosphatase 84 U/L (45-117); Total Protein 7.7 g/dL (6.4-8.2)
--- NOTE | 2017-12-03 11:27 | CT ---
EXAM DATE: 12/03/2017 11:04 AM EDT AGE/SEX: 62 years / Female INDICATIONS: Patient fell. CLINICAL DATA: This is the patient's initial encounter. Patient reports that signs and symptoms have been present for 1 day and indicates a pain score of 0/10. MEDICAL/SURGICAL HISTORY: None. None. RADIATION DOSE: 13.79 CTDI (mGy) COMPARISON: No prior exams available for comparison. TECHNIQUE: Contiguous axial images were obtained using helical multirow detector technique. The vol umetric data was post-processed with multiplanar reconstruction in oblique axial, sagittal, and coron al planes. Using automated exposure control and adjustment of the mA and/or kV according to patient s ize, radiation dose was kept as low as reasonably achievable to obtain optimal diagnostic quality tanner ges. DICOM format image data is available electronically for review and comparison. FINDINGS: Sagittal and coronal reformats demonstrate degenerated discs throughout the cervical spine with large anterior endplate osteophytes at C3/4, C4/5, C5/6 and C6/7. Overall alignment of the cervical verteb ral bodies is adequate. No acute fracture is seen. There are moderate degenerative changes in the atlantodens joint. Axial imaging: C2-C3: The thecal sac has a normal configuration. There is no evidence of disc herniation or spinal canal stenosis. The neural foramina are patent bilaterally. There is moderate facet arthritis bilat erally. C3-C4: There is a degenerated disc with mild osteophytic ridging. There is moderate facet arthritis bilaterally. There is minimal broad-based disc bulge. The thecal space and foramina appear adequate. There is sizable anterior endplate osteophyte. C4-C5: There is a degenerated disc. The thecal space and foramina appear adequate. There is moderate facet arthritis on the left. The facet joint on the right is intact. The foramina appear adequate. T here is a sizable anterior endplate osteophyte. C5-C6: There is a degenerated disc. The thecal space and foramina are adequate. There is mild facet arthritis bilaterally. There is a sizable anterior endplate osteophyte. C6-C7: There is a degenerated disc with a small broad-based disc bulge. There is mild facet arthriti s bilaterally. The thecal space and foramina appear adequate. C7-T1: No epidural impressions seen. CONCLUSION: 1. Advanced degenerative changes within the cervical spine as above. No acute cervical fracture iden tified. Electronically signed by: Michel Morales MD 12/03/2017 11:26 AM EDT
--- NOTE | 2017-12-03 11:43 | CT ---
EXAM DATE: 12/03/2017 11:05 AM EDT AGE/SEX: 62 years / Female INDICATIONS: Patient fell. Left side pain CLINICAL DATA: This is the patient's initial encounter. Patient reports that signs and symptoms have been present for 1 day and indicates a pain score of 10/10. MEDICAL/SURGICAL HISTORY: None. None. RADIATION DOSE: 8.36 CTDI (mGy) COMPARISON: No prior exams available for comparison. TECHNIQUE: Multiple contiguous axial images were obtained through the abdomen. Images were obtained using multiple row detector helical technique. Using automated exposure control and adjustment of the mA and/or kV according to patient size, radiation dose was kept as low as reasonably achievable to o btain optimal diagnostic quality images. DICOM format image data is available electronically for rev iew and comparison. FINDINGS: Abdomen CT: The liver, pancreas, kidneys, adrenals are unremarkable. There is no evidence for any appreciable pat hological adenopathy, or bowel obstruction. There is hemorrhage identified as spontaneously dense fl uid which extends from left upper quadrant and appears to be extraperitoneal extends all the way down from the level of the left hepatic lobe along the left side of the patient's abdominal wall towards the anterior portion and all the way down into the pelvis. There is high density area in the right-si ded pelvis possibly some degree of intraperitoneal hemorrhage as well. The maximum thickness of the e xtraperitoneal hemorrhage measures 2.2 cm in left upper quadrant. There is also slight fluid in the p erihepatic space probably hemorrhage as well. No definite fractures are seen. There is also haziness surrounding the left adrenal gland extending into lesser sac with soft tissue prominence surrounding the spleen probably areas of contusion and/or hemorrhage. Splenic laceration is difficult to exclude. Pelvic CT: There is no evidence for mass, abscess formation, or any significant adenopathy within the pelvis. N o definite fracture is identified for technique. There is moderate amount of stool in the colon. CONCLUSION: Moderate amount of acute extraperitoneal hemorrhage with slight intraperitoneal hemorrhag e. The examination is performed without intravenous contrast and no definite laceration of the manager of internal al organs identified, however this possibility is difficult to exclude particularly involving the spl een. There also appears to be some degree of contusion adjacent to the left adrenal gland the lesser sac and some hemorrhage is suspected surrounding the spleen as well. We are in the process of contact ing Dr. Weston emergency room. Electronically signed by: Alina Mendoza MD 12/03/2017 11:42 AM EDT
--- NOTE | 2017-12-03 11:51 | XR ---
EXAM DATE: 12/03/2017 11:26 AM EDT AGE/SEX: 62 years / Female INDICATIONS: Left shoulder pain after falling today. CLINICAL DATA: This is the patient's initial encounter. Patient reports that signs and symptoms have been present for 1 day and indicates a pain score of 5/10. MEDICAL/SURGICAL HISTORY: Stroke. Smoker. Previous shoulder fracture. None. COMPARISON: No prior exams available for comparison. FINDINGS: No definite fractures, or dislocations are identified. No definite lytic or sclerotic lesion is seen . Slight osteopenia is seen. CONCLUSION: Slight osteopenia. Electronically signed by: Alina Mendoza MD 12/03/2017 11:50 AM EDT
--- NOTE | 2017-12-03 11:52 | XR ---
EXAM DATE: 12/03/2017 11:37 AM EDT AGE/SEX: 62 years / Female INDICATIONS: Left rib pain after falling today. CLINICAL DATA: This is the patient's initial encounter. Patient reports that signs and symptoms have been present for 1 day and indicates a pain score of 8/10. MEDICAL/SURGICAL HISTORY: Stroke. Smoker. Previous shoulder fracture. None. COMPARISON: No prior exams available for comparison. FINDINGS: Multiple old rib fractures are seen on the left No definite displaced rib fractures or pneumothorax i s identified. CONCLUSION: Negative examination. Electronically signed by: Alina Mendoza MD 12/03/2017 11:51 AM EDT
[2017-12-03] MEDS ORDERED: Sodium Chlor 0.9% Inj 500 ML IV.SIG ONE (11:58)
[2017-12-03] MEDS ORDERED: Morphine Inj 4 MG/ML Vial IM ONE (13:02)
[2017-12-03] MEDS ORDERED: MethylPREDNISolone Sod Succinate Inj 125 MG/2 ML Vial IV.PUSH ONE (15:34)
--- NOTE | 2017-12-03 17:37 | CT ---
EXAM DATE: 12/03/2017 5:12 PM EDT AGE/SEX: 62 years / Female INDICATIONS: Left upper quadrant pain. CLINICAL DATA: This is the patient's initial encounter. Patient reports that signs and symptoms have been present for 1 day and indicates a pain score of 6/10. MEDICAL/SURGICAL HISTORY: None. None. ORAL CONTRAST: No oral contrast ingested. RADIATION DOSE: 10.62 CTDI (mGy) COMPARISON: [facility] [place], CT ABDOMEN & PELVIS W/O CONTRAST, 12/03/2017. . TECHNIQUE: Multiple contiguous axial images were obtained through the abdomen and pelvis following b olus infusion of 82 ml Omnipaque 350 (iohexol) nonionic water-soluble contrast as a single exam dos e. No oral contrast ingested. Using automated exposure control and adjustment of the mA and/or kV ac cording to patient size, radiation dose was kept as low as reasonably achievable to obtain optimal di agnostic quality images. DICOM format image data is available electronically for review and comparis on. FINDINGS: Abdomen CT: The liver, pancreas, kidneys, adrenals are unremarkable. There is no evidence for any appreciable pat hological adenopathy, or bowel obstruction. There is dense consolidation left lower lobe suspicious f or pneumonia with slight right lung base infiltrate. There is a splenic laceration measures 3.2 cm in size with hemorrhage surrounding the spleen. Intraperitoneal hemorrhage is present extends from [place] hepatic space and in the right paracolic gutter and from perisplenic space although it down into the pelvis to a moderate degree. There are atherosclerotic calcifications involving the aorta and iliac a rteries chronic in nature. Pelvic CT: There is no evidence for mass, abscess formation, or any significant adenopathy within the pelvis. CONCLUSION: Large splenic laceration corresponding to the area of questioned abnormality on the patie nt's prior noncontrast CT examination with acute intraperitoneal hemorrhage which has increased since the prior examination. Some of the hemorrhage appeared to be extraperitoneal on the patient's prior study which was noncontrast, however all of the hemorrhage appears to be intraperitoneal on this exam ination. Findings were discussed with ER at the time of this dictation on 12/03/2017 at 17:30 hours. Electronically signed by: Alina Mendoza MD 12/03/2017 5:35 PM EDT
--- NOTE | 2017-12-03 18:16 | MH ---
cc: Lavonne Boyd MD DATE OF ADMISSION: 12/03/2017 REASON FOR ADMISSION: Abdominal injury, fall. HISTORY OF PRESENT ILLNESS: This is a 62-year-old female who was in the methadone clinic. She is wheelchair bound due to left hemiparesis from previous stroke. I guess she fell out of the wheelchair somehow. She hit her head, left shoulder and left rib cage. The patient was worked up and found to have a splenic laceration; hence, the admission. PAST MEDICAL HISTORY: COPD, CHF, stroke. MEDICATIONS: She is on that Xanax, Adderall and Spiriva as well as methadone. PAST SURGICAL HISTORY: Negative. SOCIAL HISTORY: The patient smokes a pack a day. PHYSICAL EXAMINATION: GENERAL: Reveals a 62-year-old female, appearing much older than actual age. HEENT: Normocephalic. No trauma to the head. Some bruising noted over the left side of the mormonism. Pupils are equal and reactive. Extraocular muscles intact. NECK: Bilateral carotid pulses. No bruits. CHEST: Pulmonary cachexia is very prominent. The patient has severe COPD with retraction of the chest wall musculature. HEART: Regular rate and rhythm. ABDOMEN: Soft, tender on palpation in all 4 quadrants. No rebound, but some guarding, which is voluntary. MUSCULOSKELETAL: Patient is complaining of left-sided chest pain and abdominal pain, more so. Pelvis is stable. EXTREMITIES: The patient has bilateral femoral pulses palpable, distal pulses palpable by Doppler. She has left hemiparesis with partial contractures. NEUROLOGIC: Otherwise, she is awake and alert. [place] coma scale. IMPRESSION AND RECOMMENDATIONS: The patient with a splenic laceration. ALLERGIC ALLEGEDLY TO DYE, so the dye was administered at the second attempt CT scan of abdomen and pelvis. This reveals fair amount of blood in the abdomen, no active bleeding of the spleen, but the patient does need splenic embolization in face of the amount of blood in the abdomen and grade 3 splenic laceration which is likely to continue bleeding. She is a poor candidate for surgery and if this does not work, she will need surgery. In addition, the patient may need surgery later on if the spleen necrotizes. MD LUIS ALBERTO Barros/KEARA , 05:59 PM , 06:15 PM MARTITA
[2017-12-03] MEDS ORDERED: fentaNYL Citrate Inj 250 MCG/5 ML Ampul ONE (18:17)
[2017-12-03 18:39] LABS: Hematocrit 26.9 % (35.0-46.0); Hemoglobin 8.8 gm/dL (11.6-15.3)
[2017-12-03] MEDS ORDERED: Bisacodyl 10 MG Supp RECTAL PRN (18:43)
[2017-12-03] MEDS ORDERED: Promethazine 25 MG Supp RECTAL PRN (18:43)
[2017-12-03] MEDS ORDERED: Post-op Orders (for Pharmacy) OTHER ONE (18:43)
[2017-12-03] MEDS ORDERED: Naloxone Inj 0.4 MG/ML Vial IV.PUSH PRN (18:43)
[2017-12-03] MEDS ORDERED: Sodium Chlor 0.9% Inj 250 ML ONE (18:47)
--- NOTE | 2017-12-03 20:26 | P.RAD ---
Post Procedure Progress Note - Pre Procedure Diagnosis (1) Splenic laceration - Post Procedure Diagnosis (1) Pseudoaneurysm (2) Splenic laceration - Procedure Information Procedure Date: 12/03/17 Supervising Radiologist: Kenneth Beckford MD Estimated blood loss (mL): 10 Anesthesia: Local, Analgesia, Conscious Sedation - Plan of Activity Patient to Unit: Critical Care Patient Condition: Good See PACS Report for procedural detail/treatment. Vascular - Arterial Procedure Celiac Procedure: Angiogram, Embolization (selected lower branches of splenic artery) - Additional Information Findings: Multiple pseudoaneurysms along splenic laceration embolized with coils and gelfoam. No active bleed Treatment Area: Distal splenic artery Additional Detail: Groin closure device. Patient unable to lie supine.
[2017-12-03] MEDS: Sod Chloride 0.9% Inj 1,000 ML IV.CONT SCH (21:00)
[2017-12-03] MEDS: Morphine Inj 4 MG/ML Vial IV.PUSH PRN (21:05)
[2017-12-03] MEDS: Senna/Docusate Sodium 8.6/50 MG Tablet PO SCH (22:26)
[2017-12-03] MEDS: Temazepam 15 MG Capsule PO SCH (22:37)
[2017-12-04] MEDS: Morphine Inj 4 MG/ML Vial IV.PUSH PRN ×5 (00:11→22:56)
[2017-12-04 07:21] LABS: Baso % (Auto) 0.2 % (0.0-2.0); Hematocrit 25.1 % (35.0-46.0); Hemoglobin 8.3 gm/dL (11.6-15.3); Lymph # (Auto) 1.5 th/mm3 (1.0-4.8); Lymph % (Auto) 17.3 % (9.0-44.0); Mean Corpuscular HGB Conc 33.1 % (32.0-36.0); Mean Corpuscular Volume 87.7 fL (80.0-100.0); Mean Platelet Volume 10.3 fL (7.0-11.0); Mono # (Auto) 0.6 th/mm3 (0.0-0.9); Mono % (Auto) 6.3 % (0.0-8.0); Neut # (Auto) 6.7 th/mm3 (1.8-7.7); Neut % (Auto) 76.2 % (16.0-70.0); Platelet Count 140 th/mm3 (150-450); Red Blood Count 2.87 mil/mm3 (4.00-5.30); White Blood Count 8.8 th/mm3 (4.0-11.0)
[2017-12-04 07:41] LABS: Calcium 8.7 mg/dL (8.5-10.1); Carbon Dioxide 20.8 meq/L (21.0-32.0)
[2017-12-04] MEDS: Senna/Docusate Sodium 8.6/50 MG Tablet PO SCH ×2 (08:40→22:59)
[2017-12-04] MEDS: Sod Chloride 0.9% Inj 1,000 ML IV.CONT SCH (13:15)
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
[2017-12-04] MEDS: Temazepam 15 MG Capsule PO SCH (22:59)
[2017-12-05 04:39] LABS: Baso % (Auto) 0.5 % (0.0-2.0); Eos # (Auto) 0.1 th/mm3 (0.0-0.4); Eos % (Auto) 0.9 % (0.0-4.0); Lymph # (Auto) 1.8 th/mm3 (1.0-4.8); Lymph % (Auto) 25.9 % (9.0-44.0); Mean Corpuscular Hemoglobin 29.1 pg (27.0-34.0); Mean Corpuscular Volume 88.1 fL (80.0-100.0); Mean Platelet Volume 10.7 fL (7.0-11.0); Mono # (Auto) 0.6 th/mm3 (0.0-0.9); Mono % (Auto) 8.1 % (0.0-8.0); Neut # (Auto) 4.4 th/mm3 (1.8-7.7); Neut % (Auto) 64.6 % (16.0-70.0); Platelet Count 108 th/mm3 (150-450); Red Blood Count 2.37 mil/mm3 (4.00-5.30); Red Cell Distribution Width 14.3 % (11.6-17.2); White Blood Count 6.9 th/mm3 (4.0-11.0)
[2017-12-05 04:50] LABS: Hematocrit 20.8 % (35.0-46.0); Hemoglobin 6.9 gm/dL (11.6-15.3)
[2017-12-05 05:02] LABS: Alanine Aminotransferase 11 U/L (10-53); Alkaline Phosphatase 66 U/L (45-117); Anion Gap 8 meq/L (5-15); Aspartate Aminotransferase 12 U/L (15-37); Blood Urea Nitrogen 18 mg/dL (7-18); Calcium 8.4 mg/dL (8.5-10.1); Carbon Dioxide 25.2 meq/L (21.0-32.0); Chloride 111 meq/L (98-107); Glomerular Filtration Rate 70 mL/min (>89); Glucose,Random 96 mg/dL (74-106); Potassium 3.6 meq/L (3.5-5.1); Sodium 144 meq/L (136-145); Total Protein 6.4 g/dL (6.4-8.2)
[2017-12-05] MEDS: Morphine Inj 4 MG/ML Vial IV.PUSH PRN ×2 (07:38→18:44)
[2017-12-05] MEDS: Sod Chloride 0.9% Inj 1,000 ML IV.CONT SCH ×3 (08:30→22:39)
[2017-12-05] MEDS: ALPRAZolam 0.5 MG Tablet PO SCH ×3 (08:33→17:05)
[2017-12-05] MEDS: Senna/Docusate Sodium 8.6/50 MG Tablet PO SCH ×2 (08:34→22:38)
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
--- NOTE | 2017-12-05 11:47 | IR ---
EXAM DATE: 12/03/2017 9:16 PM EDT AGE/SEX: 62 years / Female INDICATIONS: Patient presents with left upper quadrant abdominal pain due to fall in need of splenic angiogram with possible embolization. CLINICAL DATA: This is the patient's initial encounter. Patient reports that signs and symptoms have been present for 1 day and indicates a pain score of 4/10. MEDICAL/SURGICAL HISTORY: . COPD CHF History of stroke Smoking history . N/a COMPARISON: [facility] – [place], CT ABDOMEN & PELVIS W CONTRAST, 12/03/2017. . FLUORO TIME (min): 16.9 IMAGE SERIES: 17 ACCESS SITE: Right femoral artery SEDATION TIME (min): 75 CONTRAST (cc): 65 cc Visipaque (iodixanol) MEDICATION(S): 3 mg midazolam (Versed) IV 150 mcg fentanyl (Sublimaze) IV 1 g Vancomycin IV Vancomycin within 2 hrs of procedure, Ancef (or alternative) within 1 hr of procedure. DEVICE(S): Left Splenic artery Gelfoam 12-7mm Right common femoral artery Perclose 6fr Left Splenic artery embolic coil(s) 018 4/2 tornado Left Splenic artery embolic coil(s) 018 3/2 tornado (x5) . . PROCEDURE : 1. Ultrasound-guided puncture of the access site. 2. Conscious sedation with continuous EKG and Oximetry monitoring. 3. Angiography of the distal splenic artery 4. Coil and Gelfoam embolization, multiple lower pole branches of the distal splenic artery The risks, benefits and alternatives to the procedure were explained and verbal and written consent w as obtained. The site was prepped in sterile fashion. Full sterile technique was used, including ca p, mask, sterile gloves and gown and a large sterile sheet. Hand hygiene and 2% chlorhexidine and/or betadine/alcohol prep was utilized per protocol for cutaneous antisepsis. Sterile gel and sterile p robe cover were utilized for ultrasound guidance. The skin and subcutaneous tissues were infiltrated with local anesthetic solution. With ultrasound and fluoroscopic guidance the selected artery was punctured and a vascular sheath was placed. EXAM DATE: 12/03/2017 9:16 PM EDT AGE/SEX: 62 years / Female INDICATIONS: Patient presents with left upper quadrant abdominal pain due to fall in need of splenic angiogram with possible embolization. CLINICAL DATA: This is the patient's initial encounter. Patient reports that signs and symptoms have been present for 1 day and indicates a pain score of 4/10. MEDICAL/SURGICAL HISTORY: . COPD CHF History of stroke Smoking history . N/a COMPARISON: [facility] [place], CT ABDOMEN & PELVIS W CONTRAST, 12/03/2017. . FLUORO TIME (min): 16.9 IMAGE SERIES: 17 ACCESS SITE: Right femoral artery SEDATION TIME (min): 75 CONTRAST (cc): 65 cc Visipaque (iodixanol) MEDICATION(S): 3 mg midazolam (Versed) IV 150 mcg fentanyl (Sublimaze) IV 1 g Vancomycin IV Vancomycin within 2 hrs of procedure, Ancef (or alternative) within 1 hr of procedure. DEVICE(S): Left Splenic artery Gelfoam 12-7mm Right common femoral artery Perclose 6fr Left Splenic artery embolic coil(s) 018 4/2 tornado Left Splenic artery embolic coil(s) 018 3/2 tornado (x5) . . PROCEDURE : 1. Ultrasound-guided puncture of the access site. 2. Angiography of the access site prior to closure device. 3. Conscious sedation with continuous EKG and Oximetry monitoring. 4. Percutaneous closure of the access site. 5. Angiography of the distal, lower pole branches of the splenic artery 6. Gelfoam and coil embolization of multiple branches of the lower pole splenic artery The risks, benefits and alternatives to the procedure were explained and verbal and written consent w as obtained. The site was prepped in sterile fashion. Full sterile technique was used, including ca p, mask, sterile gloves and gown and a large sterile sheet. Hand hygiene and 2% chlorhexidine and/or betadine/alcohol prep was utilized per protocol for cutaneous antisepsis. Sterile gel and sterile p robe cover were utilized for ultrasound guidance. The skin and subcutaneous tissues were infiltrated with local anesthetic solution. With ultrasound and fluoroscopic guidance the selected artery was punctured and a vascular sheath was placed. Angiography of the common femoral artery was performed for evaluation prior to percutaneous closure device placement. A 5 Gambian hook catheter was used to select the ostium of the splenic artery. Contrast injection show ed multiple pseudoaneurysms in the lower pole of the splenic artery with no active hemorrhage. Because of tortuosity of the splenic artery, a 6 Gambian Reddy 2 sheath was advanced over the hook cat heter and into the proximal splenic artery to maintain access. An 038 glide catheter was then manipul ated past the first bend in the splenic artery. Through the 038, a renegade high flow microcatheter w as used to select the lower pole branches of the splenic artery. Contrast injection again showed at l east 2 and possibly 3 pseudoaneurysms. Each of the branch vessels supplying the pseudoaneurysm was wa s subsequently selected. These were coiled individually with 3 and 4 mm Tornado coils to cessation of antegrade flow. Small amount of Gelfoam was then injected through the microcatheter to facilitate em bolization of the regional pseudoaneurysms. Final contrast injection showed preservation of blood flow to the upper and midpole as well as the ma jority of the lower pole of the spleen with successful embolization of the previously identified pseu doaneurysms Hemostasis was obtained with the prescribed medicated closure device. Conscious sedation was perform ed with the prescribed dosages and duration as above in the presence of an independent trained radiol ogy nurse to assist in the monitoring of the patient. EKG and oximetry remained stable throughout th e procedure. CONCLUSION: 1. Splenic laceration with multiple pseudoaneurysms in the lower pole as detailed above. 2. Successful coil and Gelfoam branch vessel embolization of multiple lower pole branches feeding th e pseudoaneurysms as detailed above. 3. Groin closure was utilized as the patient was unable to lie supine due to some post stroke contra ctions Electronically signed by: Kenneth Beckford MD 12/05/2017 11:46 AM EDT
[2017-12-05] MEDS: oxyCODONE/Acetaminophen 10/325 Tablet PO PRN ×3 (13:03→22:32)
[2017-12-05 20:28] LABS: Hematocrit 29.8 % (35.0-46.0); Hemoglobin 9.9 gm/dL (11.6-15.3)
[2017-12-05] MEDS: Temazepam 15 MG Capsule PO SCH (22:32)
[2017-12-06] MEDS: Morphine Inj 4 MG/ML Vial IV.PUSH PRN ×2 (00:52→23:36)
[2017-12-06] MEDS: oxyCODONE/Acetaminophen 10/325 Tablet PO PRN ×4 (08:04→21:38)
[2017-12-06] MEDS: ALPRAZolam 0.5 MG Tablet PO SCH ×3 (08:04→17:30)
[2017-12-06] MEDS: Senna/Docusate Sodium 8.6/50 MG Tablet PO SCH ×2 (08:04→21:56)
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
[2017-12-06] MEDS: Sod Chloride 0.9% Inj 1,000 ML IV.CONT SCH ×2 (12:01→23:36)
[2017-12-06 12:10] LABS: Baso % (Auto) 0.6 % (0.0-2.0); Eos # (Auto) 0.2 th/mm3 (0.0-0.4); Eos % (Auto) 2.2 % (0.0-4.0); Hematocrit 30.5 % (35.0-46.0); Hemoglobin 10.2 gm/dL (11.6-15.3); Lymph # (Auto) 1.4 th/mm3 (1.0-4.8); Mean Corpuscular HGB Conc 33.3 % (32.0-36.0); Mean Platelet Volume 10.3 fL (7.0-11.0); Mono # (Auto) 0.7 th/mm3 (0.0-0.9); Mono % (Auto) 9.4 % (0.0-8.0); Neut % (Auto) 68.8 % (16.0-70.0); Platelet Count 115 th/mm3 (150-450); Red Blood Count 3.51 mil/mm3 (4.00-5.30); Red Cell Distribution Width 14.8 % (11.6-17.2); White Blood Count 7.2 th/mm3 (4.0-11.0)
[2017-12-06] MEDS: Temazepam 15 MG Capsule PO SCH (21:38)
[2017-12-07 08:13] LABS: Hematocrit 25.7 % (35.0-46.0); Hemoglobin 8.6 gm/dL (11.6-15.3)
[2017-12-07] MEDS: Senna/Docusate Sodium 8.6/50 MG Tablet PO SCH ×2 (08:29→20:32)
[2017-12-07] MEDS: ALPRAZolam 0.5 MG Tablet PO SCH ×3 (08:29→17:15)
[2017-12-07] MEDS: oxyCODONE/Acetaminophen 10/325 Tablet PO PRN ×2 (08:29→12:35)
[2017-12-07] MEDS: Sod Chloride 0.9% Inj 1,000 ML IV.CONT SCH (10:36)
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
[2017-12-07] MEDS: Temazepam 15 MG Capsule PO SCH (20:32)
--- NOTE | 2017-12-07 22:26 | CT ---
EXAM DATE: 12/07/2017 9:46 PM EDT AGE/SEX: 62 years / Female INDICATIONS: Left upper quadrant pain. Trauma follow up splenic laceration. CLINICAL DATA: This is the patient's subsequent encounter. Patient reports that signs and symptoms h ave been present for 4 - 6 days and indicates a pain score of 8/10. MEDICAL/SURGICAL HISTORY: . Splenic laceration. . Angiography of the distal splenic artery. RADIATION DOSE: 6.64 CTDI (mGy) COMPARISON: [facility] [place] ABDOMEN & PELVIS W CONTRAST, 12/03/2017. . TECHNIQUE: Multiple contiguous axial images were obtained through the abdomen. Images were obtained using multiple row detector helical technique. Using automated exposure control and adjustment of the mA and/or kV according to patient size, radiation dose was kept as low as reasonably achievable to o btain optimal diagnostic quality images. DICOM format image data is available electronically for rev iew and comparison. FINDINGS: Lower Lungs: There are small pleural effusions left greater than right. Consolidation is again noted in the left lower lobe. Liver: The liver has a homogeneous density without space-occupying lesion. There is no dilation of th e biliary tree. Spleen: Interval post intervention changes are noted with multiple metallic coils along the hilar re gion of the spleen. The current study was performed without intravenous contrast in the prior study w as performed with intravenous contrast making direct comparison difficult. There is a lower density a kaylah involving the anterior portion of the spleen and the fluid blends in with the spleen is difficult to delineate or separate. There is been no definite gross change. There is no high density hemorrhag e. There is been a mild interval decrease in the surrounding fluid. Moderate amount of fluid remains in the pelvis which is of mildly high density. Pancreas: Unremarkable without mass or calcification. Kidneys: Normal in size and shape. No evidence of mass or hydronephrosis. Adrenal Glands: Unremarkable. Aorta: The aorta and proximal iliac vessels are grossly unremarkable without aneurysmal dilation. Bowel/Mesentery: The bowel loops are grossly unremarkable. The cecum and sigmoid colon have a normal configuration. Abdominal Wall: Intact. Retroperitoneum: No evidence of adenopathy in the retrocrural, para-aortic, or deep pelvic regions. Bladder: Contours are smooth. Reproductive Organs: No abnormal masses or calcifications seen. Inguinal: The inguinal region is unremarkable without evidence of adenopathy. Bony Structures: Unremarkable. CONCLUSION: 1. Noncontrast examination making direct comparison with the prior contrast study difficult especial ly in evaluating the spleen and adjacent fluid collections which are of similar density and difficult to separate. There is no definite gross change or acute hemorrhage. 2. Status post interval embolization with multiple coils in the region of the splenic hilar area. 3. Consolidation in the left lower lobe with small effusions. Electronically signed by: Lauro Wan MD 12/07/2017 10:25 PM EDT
[2017-12-08 05:18] LABS: Baso % (Auto) 0.7 % (0.0-2.0); Eos # (Auto) 0.3 th/mm3 (0.0-0.4); Eos % (Auto) 5.6 % (0.0-4.0); Hematocrit 24.4 % (35.0-46.0); Hemoglobin 8.3 gm/dL (11.6-15.3); Lymph # (Auto) 1.4 th/mm3 (1.0-4.8); Lymph % (Auto) 23.1 % (9.0-44.0); Mean Corpuscular HGB Conc 33.9 % (32.0-36.0); Mean Corpuscular Hemoglobin 29.6 pg (27.0-34.0); Mean Corpuscular Volume 87.4 fL (80.0-100.0); Mean Platelet Volume 10.2 fL (7.0-11.0); Mono # (Auto) 0.7 th/mm3 (0.0-0.9); Mono % (Auto) 12.3 % (0.0-8.0); Neut # (Auto) 3.4 th/mm3 (1.8-7.7); Neut % (Auto) 58.3 % (16.0-70.0); Platelet Count 128 th/mm3 (150-450); Red Blood Count 2.79 mil/mm3 (4.00-5.30); White Blood Count 5.9 th/mm3 (4.0-11.0)
[2017-12-08] MEDS: Sod Chloride 0.9% Inj 1,000 ML IV.CONT SCH ×3 (07:27→11:54)
[2017-12-08] MEDS: ALPRAZolam 0.5 MG Tablet PO SCH ×3 (08:05→17:12)
[2017-12-08] MEDS: oxyCODONE/Acetaminophen 10/325 Tablet PO PRN ×3 (08:06→22:35)
[2017-12-08] MEDS: Senna/Docusate Sodium 8.6/50 MG Tablet PO SCH ×2 (08:06→21:01)
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
[2017-12-08] MEDS: Temazepam 15 MG Capsule PO SCH (21:01)
[2017-12-09] MEDS: Morphine Inj 4 MG/ML Vial IV.PUSH PRN (05:27)
[2017-12-09] MEDS: Sod Chloride 0.9% Inj 1,000 ML IV.CONT SCH ×2 (07:36→21:27)
[2017-12-09] MEDS: Senna/Docusate Sodium 8.6/50 MG Tablet PO SCH ×2 (08:17→21:28)
[2017-12-09] MEDS: ALPRAZolam 0.5 MG Tablet PO SCH (08:20)
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
[2017-12-09] MEDS ORDERED: Phenylephrine/NS 1000 MCG/10ML Syringe IV.PUSH ONE (12:00)
[2017-12-09 13:10] LABS: Baso % (Auto) 0.1 % (0.0-2.0); Hemoglobin 8.6 gm/dL (11.6-15.3); Lymph # (Auto) 0.5 th/mm3 (1.0-4.8); Lymph % (Auto) 3.6 % (9.0-44.0); Mean Corpuscular HGB Conc 32.9 % (32.0-36.0); Mean Corpuscular Hemoglobin 29.5 pg (27.0-34.0); Mean Corpuscular Volume 89.7 fL (80.0-100.0); Mean Platelet Volume 9.9 fL (7.0-11.0); Neut # (Auto) 12.3 th/mm3 (1.8-7.7); Neut % (Auto) 89.3 % (16.0-70.0); Platelet Count 238 th/mm3 (150-450); Red Cell Distribution Width 13.9 % (11.6-17.2); White Blood Count 13.8 th/mm3 (4.0-11.0)
--- NOTE | 2017-12-09 13:20 | XR ---
EXAM DATE: 12/09/2017 1:15 PM EDT AGE/SEX: 62 years / Female INDICATIONS: Shortness of breath. CLINICAL DATA: This is the patient's initial encounter. Patient reports that signs and symptoms have been present for 1 day and indicates a pain score of 0/10. MEDICAL/SURGICAL HISTORY: None. None. COMPARISON: No prior exams available for comparison. FINDINGS: Moderate parenchymal changes left base with some air bronchograms present. Granuloma right base calci fied paratracheal lymph nodes. Mild cardiomegaly without failure No pneumothorax. The portion of the bony skeleton visualized is unremarkable. CONCLUSION: Mild cardiomegaly without failure Consolidative changes developing left lower lobe Calcified peritracheal nodes. Electronically signed by: Paul Morales MD 12/09/2017 1:19 PM EDT
[2017-12-09 13:26] LABS: Carbon Dioxide 22.6 meq/L (21.0-32.0); Potassium 3.7 meq/L (3.5-5.1)
[2017-12-09 13:41] LABS: ABG Base Excess -5.6 mmol/L (-2-2); ABG PCO2 23 mmHg (38-42); ABG PO2 69 mmHg (61-120)
[2017-12-09] MEDS ORDERED: Sod Chloride 0.9% Inj 1,000 ML IV.CONT SCH (13:52)
[2017-12-09] MEDS ORDERED: Sodium Chlor 0.9% Inj 250 ML IV.SIG SCH (14:00)
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
--- NOTE | 2017-12-09 14:49 | XR ---
EXAM DATE: 12/09/2017 2:44 PM EDT AGE/SEX: 62 years / Female INDICATIONS: Evaluate central line placement. Status post intubation. CLINICAL DATA: This is the patient's subsequent encounter. Patient reports that signs and symptoms h ave been present for 4 - 6 days and indicates a pain score of Nonresponsive. MEDICAL/SURGICAL HISTORY: . Splenic laceration. . . Angiography of the distal splenic artery. COMPARISON: C, CHEST 1V SINGLE AP, 12/09/2017. . FINDINGS: A single AP portable semierect view of the chest was obtained and demonstrates interval intubation wi th the endotracheal tube tip approximately 3 to 4 cm above the davi. There is been placement of a r ight internal jugular central venous line with no pneumothorax. Nasogastric tube has also been placed and is seen coursing through the esophagus into the stomach. The patient is mildly rotated to the le ft. The heart size is within normal limits and the right lung remains clear. There is mild patchy opa city in the left lung base. The left costophrenic angle remains mildly blunted appearance. Calcified right hilar and right paratracheal lymph nodes are again noted. CONCLUSION: 1. Interval intubation and placement of central venous line with no pneumothorax. A nasogastric tube is been placed as well. 2. Patchy opacity remains in the left lung base. Electronically signed by: Lauro Wan MD 12/09/2017 2:48 PM EDT
[2017-12-09 14:54] LABS: ABG PCO2 38 mmHg (38-42); ABG PO2 145 mmHg (61-120)
--- NOTE | 2017-12-09 15:03 | MP ---
cc: Lavonne Boyd MD DATE OF OPERATION: 12/09/2017 DATE OF SURGERY: 12/09/2017. PREOPERATIVE DIAGNOSES: Respiratory failure. Trauma. Splenic laceration. POSTOPERATIVE DIAGNOSES: Respiratory failure. Trauma. Splenic laceration. PROCEDURE PERFORMED: Triple lumen placement in the right jugular. SURGEON: MD Deb ANESTHESIA: 1% Xylocaine. ESTIMATED BLOOD LOSS: Minimal. DESCRIPTION OF PROCEDURE: The patient is prepped and draped in the usual fashion, the area infiltrated with 1% Xylocaine. Needle inserted in the right jugular vein. Through the needle, the J wire is guided. Over the J-wire, a dilator and triple lumen are placed. The triple lumen is sutured in place with 2-0 silk. Chest x-ray obtained. The patient tolerated the procedure well. MD LUIS ALBERTO Barros/CRISTHIAN , 02:42 PM , 03:02 PM
[2017-12-09 15:34] LABS: Alanine Aminotransferase 14 U/L (10-53); Albumin 3.1 g/dL (3.4-5.0); Alkaline Phosphatase 83 U/L (45-117); Anion Gap 14 meq/L (5-15); Aspartate Aminotransferase 26 U/L (15-37); Blood Urea Nitrogen 23 mg/dL (7-18); Calcium 8.8 mg/dL (8.5-10.1); Carbon Dioxide 22.2 meq/L (21.0-32.0); Chloride 101 meq/L (98-107); Glomerular Filtration Rate 47 mL/min (>89); Glucose,Random 365 mg/dL (74-106); Potassium 3.9 meq/L (3.5-5.1); Sodium 137 meq/L (136-145); Total Protein 7.1 g/dL (6.4-8.2)
[2017-12-09 15:40] LABS: Amphetamine Screen,Urine Neg (Neg); Barbiturate Screen,Urine Neg (Neg); Cannabinoid Screen,Urine Neg (Neg); Cocaine Screen,Urine Neg (Neg)
[2017-12-09] MEDS: Midazolam 50 MG/50 ML Inj 50 MG/50 ML BAG IV.CONT PRN ×2 (15:47→20:39)
[2017-12-09] MEDS: fentaNYL 10 mcg/mL Premix Drip 2,500 MCG/250 ML BAG IV.SIG PRN (15:48)
[2017-12-09 15:58] LABS: Opiate Screen,Urine Pos (Neg)
[2017-12-09] MEDS ORDERED: MethylPREDNISolone Sod Succinate Inj 40 MG/ML Vial IV.PUSH ONE (16:30)
[2017-12-09 17:13] LABS: Baso % (Auto) 0.2 % (0.0-2.0); Hemoglobin 7.5 gm/dL (11.6-15.3); Lymph # (Auto) 0.6 th/mm3 (1.0-4.8); Lymph % (Auto) 5.3 % (9.0-44.0); Mean Corpuscular HGB Conc 32.5 % (32.0-36.0); Mean Corpuscular Hemoglobin 29.2 pg (27.0-34.0); Mean Corpuscular Volume 89.6 fL (80.0-100.0); Mean Platelet Volume 10.8 fL (7.0-11.0); Mono # (Auto) 0.8 th/mm3 (0.0-0.9); Mono % (Auto) 6.6 % (0.0-8.0); Neut # (Auto) 10.4 th/mm3 (1.8-7.7); Neut % (Auto) 87.9 % (16.0-70.0); Platelet Count 215 th/mm3 (150-450); Red Blood Count 2.57 mil/mm3 (4.00-5.30); Red Cell Distribution Width 14.1 % (11.6-17.2); White Blood Count 11.8 th/mm3 (4.0-11.0)
--- NOTE | 2017-12-09 17:49 | CT ---
EXAM DATE: 12/09/2017 5:45 PM EDT AGE/SEX: 62 years / Female INDICATIONS: Altered mental status. CLINICAL DATA: This is the patient's initial encounter. Patient reports that signs and symptoms have been present for 1 day and indicates a pain score of Nonresponsive. MEDICAL/SURGICAL HISTORY: . Splenic laceration None. RADIATION DOSE: 63.34 CTDI (mGy) COMPARISON: [facility] – [place] HEAD W/O CONTRAST, 12/03/2017. . TECHNIQUE: CT of the head without contrast. Using automated exposure control and adjustment of the mA and/or kV according to patient size, radiation dose was kept as low as reasonably achievable to ob tain optimal diagnostic quality images. DICOM format image data is available electronically for revi ew and comparison. FINDINGS: Cerebrum: The ventricles are normal for age. No evidence of midline shift, mass lesion, hemorrhage or acute infarction. No extraaxial fluid collections are seen. Posterior Fossa: The cerebellum and brainstem are intact. The 4th ventricle is midline. The cerebe llopontine angle is unremarkable. Extracranial: The visualized portion of the orbits is intact. Skull: The calvaria is intact. No evidence of skull fracture. CONCLUSION: 1. Negative noncontrast head CT. Electronically signed by: Lauro Wan MD 12/09/2017 5:47 PM EDT
--- NOTE | 2017-12-09 17:58 | CT ---
EXAM DATE: 12/09/2017 5:44 PM EDT AGE/SEX: 62 years / Female INDICATIONS: Evaluate for emboli. CLINICAL DATA: This is the patient's initial encounter. Patient reports that signs and symptoms have been present for 1 day and indicates a pain score of Nonresponsive. MEDICAL/SURGICAL HISTORY: . Splenic laceration None. RADIATION DOSE: 9.4 CTDI (mGy) Patient experienced a contrast media and medication reaction. COMPARISON: [facility] [place] & [place]EL[place] W/O CONTRAST, 12/07/2017. . TECHNIQUE: Volumetric scanning was performed using a multi-row detector CT scanner during bolus infu dona of 30 ml Omnipaque 350 (iohexol) nonionic water-soluble contrast as a single exam dose. The purvi a was post processed with a variety of visualization algorithms including full volume maximum intensi ty projection and sliding thin slab reformation. Using automated exposure control and adjustment of the mA and/or kV according to patient size, radiation dose was kept as low as reasonably achievable t o obtain optimal diagnostic quality images. DICOM format image data is available electronically for review and comparison. FINDINGS: There is contusion or atelectasis in the posterior and lateral left lung base and to a minimal degree in the posterior medial right lung base. There is no evidence of pulmonary embolism. Endotracheal tube nasogastric tube and central line are in good position. There are calcified hilar a nd mediastinal lymph nodes. Atherosclerotic vascular calcifications are noted. No evidence of mediast inal mass or hematoma. Small left pleural effusion. In the visualized upper abdomen, a heterogeneous mixed density mass process is noted in the left uppe r quadrant which appears to reflect some new hematoma associated with recent splenic injury. Emboliza tion coils are noted. CONCLUSION: 1. No evidence of pulmonary embolus. 2. Suspect additional interval splenic hemorrhage. Recommend CTA examination of the abdomen for furt her evaluation 3. Findings were reported to Dr. Boyd Electronically signed by: Bernabe Schwartz MD 12/09/2017 5:56 PM EDT
--- NOTE | 2017-12-09 18:07 | US ---
EXAM DATE: 12/09/2017 5:52 PM EDT AGE/SEX: 62 years / Female INDICATIONS: Abdominal pain. Known splenic ulceration and adjacent hematoma. CLINICAL DATA: This is the patient's initial encounter. Patient reports that signs and symptoms have been present for 1 day and indicates a pain score of Nonresponsive. MEDICAL/SURGICAL HISTORY: Chronic obstructive pulmonary disease. Congestive heart failure. Hem iparesis. Stroke. Methadone use. Splenic laceration. None. COMPARISON: [facility] [place]EL[place]/O CONTRAST, 12/07/2017. . MEASUREMENTS: Liver:__ 15.8 cm. Common Bile Duct:__ 3mm. Right Kidney:__ 8.7 x 3.5 x 4.4cm. FINDINGS: Limited suboptimal examination due to patient's mobility and inability to roll. Liver: Increased echotexture without focal lesion or ductal dilation. There is a small amount of flui d noted around the liver margin. Portal Vein: Hepatopedal flow seen in portal vein. Common Duct: No intraluminal mass or stone visualized. Gallbladder: Demonstrates no wall thickening or pericholecystic fluid. No stones visualized. Pancreas: Not well visualized. Right Kidney: Increased echotexture. No mass or hydronephrosis. Other: There is a complex heterogeneous collection in the left upper quadrant which is contiguous wit h the spleen. Together these measure up to approximately 15.3 cm in greatest diameter. This appears t o correspond to the spleen and adjacent hemorrhage. CONCLUSION: 1. Complex collection in the left upper quadrant which is contiguous with the spleen. This appears t o represent the spleen and adjacent known hemorrhage. This is best evaluated and followed by CT. 2. Limited suboptimal examination. Electronically signed by: Lauro Wan MD 12/09/2017 6:05 PM EDT
[2017-12-09] MEDS ORDERED: Heparin - SQ 10,000 UNITS/ML Vial SQ ONE (18:18)
[2017-12-09] MEDS: ceFAZolin 2 GM Premix Inj 2 GM/50 ML PIGGYBACK IV.SIG ONE (19:22)
[2017-12-09] MEDS: METRONIDAZOLE 500 MG IV.SIG ONE (19:22)
[2017-12-09] MEDS ORDERED: SUFentanil Inj 250 MCG/5 ML Ampul ONE (19:29)
[2017-12-09 19:42] LABS: ABG Base Excess -8.3 mmol/L (-2-2); ABG PCO2 37 mmHg (38-42); ABG PO2 320 mmHG (61-120)
[2017-12-09] MEDS ORDERED: Pantoprazole Inj 40 MG Vial IV.PUSH SCH (21:00)
[2017-12-09] MEDS: Chlorhexidine 0.12% Oral Kit 15 ML UDC OROPHARYNG SCH (21:27)
[2017-12-09] MEDS: Piperacil/Tazo 3.375 GM Premix 50 ML IV.SIG SCH (21:28)
[2017-12-09 21:38] LABS: ABG Base Excess -4.5 mmol/L (-2-2); ABG PCO2 44 mmHg (38-42); ABG PO2 78 mmHg (61-120)
[2017-12-09] MEDS ORDERED: Metoprolol Inj 5 MG/5 ML Vial IV.PUSH SCH (22:00)
[2017-12-09] MEDS: Metoprolol Inj 5 MG/5 ML Vial IV.PUSH SCH (22:15)
--- NOTE | 2017-12-09 22:25 | MP ---
cc: Lavonne Boyd MD DATE OF OPERATION: 12/09/2017 PREOPERATIVE DIAGNOSIS: Delayed rupture of the spleen, trauma to the spleen, hemoperitoneum, anemia, intra-abdominal bleeding. POSTOPERATIVE DIAGNOSIS: Delayed rupture of the spleen, trauma to the spleen, hemoperitoneum, anemia, intra-abdominal bleeding. OPERATIVE PROCEDURE: Exploratory laparotomy, splenectomy and abdominal washout. SURGEON: Lavonne Boyd MD ANESTHESIA: General. ESTIMATED BLOOD LOSS: About 100 mL plus evacuation of about a liter and half of old blood. DESCRIPTION OF PROCEDURE: The patient prepped and draped in usual fashion. A mid abdominal incision made and abdomen entered. Upon entry of the abdomen, it is noted the patient has about a liter or so of free blood, old. This is suctioned off and the Bookwalter retractor is positioned, the left upper quadrant explored and visualized. The patient has adhesions between the omentum and diaphragm. These were very carefully taken down. The omentum was deflected medially. There is a huge amount of hematoma surrounding the spleen. This is removed, evacuated and the spleen is grasped and noted to be severely damaged, with multiple lacerations, basically falling apart. This one is now at the hilum clamped with Katelin clamp, divided, and then ligated with 0 Vicryl stick ties. The specimen is, of course, removed. The area is copious saline. Meticulous hemostasis obtained. The greater curvature is now run and several stitches of 2-0 Vicryl were placed in a [id number] fashion along the greater curvature of the short gastric arteries, with the vein coming off. The abdomen is irrigated now, about 6 liters of saline and explored in quadrants. Small and large bowel run. No other abnormalities noted. The area irrigated again and then pancreas observed, seems to be normal. Left upper quadrant is washed out carefully and then a 10 flat ROM drain placed, as well as some Surgicel powder. Abdomen closed with #1 PDS loop and the patient taken out of the operating room in stable condition. MD LUIS ALBERTO Barros/PRINCE , 08:16 PM , 10:24 PM
[2017-12-10] MEDS: Sod Chloride 0.9% Inj 1,000 ML IV.CONT SCH ×4 (03:43→16:04)
[2017-12-10 03:59] LABS: Amorphous Sediment,Urine Moderate /hpf; Bilirubin,Urine Negative (Negative); Clarity,Urine Turbid (Clear); Color,Urine Yellow (Yellw/Straw); Glucose,Urine (UA) 50 mg/dL (Negative); Leukocyte Esterase,Urine Trace (Negative); Nitrite,Urine Negative (Negative); Specific Gravity,Urine 1.047 (1.002-1.035); Urobilinogen,Urine 4 or Greater mg/dL (Less than 2)
[2017-12-10] MEDS: Oral Hygiene Kit OROPHARYNG SCH ×4 (04:27→16:04)
[2017-12-10] MEDS: Piperacil/Tazo 3.375 GM Premix 50 ML IV.SIG SCH ×3 (04:46→20:08)
[2017-12-10] MEDS: Metoprolol Inj 5 MG/5 ML Vial IV.PUSH SCH ×4 (04:46→23:00)
[2017-12-10] MEDS: Midazolam 50 MG/50 ML Inj 50 MG/50 ML BAG IV.CONT PRN ×3 (04:58→20:32)
[2017-12-10 05:23] LABS: ABG Base Excess -2.5 mmol/L (-2-2); ABG PCO2 32 mmHg (38-42); ABG PO2 78 mmHg (61-120)
[2017-12-10 05:38] LABS: Baso % (Auto) 0.1 % (0.0-2.0); Hematocrit 34.4 % (35.0-46.0); Hemoglobin 11.4 gm/dL (11.6-15.3); Lymph # (Auto) 0.9 th/mm3 (1.0-4.8); Lymph % (Auto) 6.8 % (9.0-44.0); Mean Corpuscular HGB Conc 33.1 % (32.0-36.0); Mean Corpuscular Volume 81.4 fL (80.0-100.0); Mean Platelet Volume 10.2 fL (7.0-11.0); Mono # (Auto) 1.2 th/mm3 (0.0-0.9); Mono % (Auto) 8.6 % (0.0-8.0); Neut # (Auto) 11.8 th/mm3 (1.8-7.7); Neut % (Auto) 84.5 % (16.0-70.0); Platelet Count 179 th/mm3 (150-450); Red Blood Count 4.22 mil/mm3 (4.00-5.30); Red Cell Distribution Width 17.4 % (11.6-17.2)
[2017-12-10 05:58] LABS: Alanine Aminotransferase 217 U/L (10-53); Albumin 2.5 g/dL (3.4-5.0); Anion Gap 10 meq/L (5-15); Aspartate Aminotransferase 340 U/L (15-37); Blood Urea Nitrogen 24 mg/dL (7-18); Calcium 7.6 mg/dL (8.5-10.1); Chloride 112 meq/L (98-107); Glomerular Filtration Rate 75 mL/min (>89); Glucose,Random 118 mg/dL (74-106); Potassium 4.3 meq/L (3.5-5.1); Sodium 143 meq/L (136-145)
[2017-12-10 06:02] LABS: Alkaline Phosphatase 74 U/L (45-117); Total Protein 6.2 g/dL (6.4-8.2)
[2017-12-10] MEDS: ALPRAZolam 0.5 MG Tablet PO SCH (08:47)
[2017-12-10] MEDS: Pantoprazole Inj 40 MG Vial IV.PUSH SCH (08:49)
[2017-12-10] MEDS: Chlorhexidine 0.12% Oral Kit 15 ML UDC OROPHARYNG SCH ×2 (08:49→20:08)
[2017-12-10] MEDS: Senna/Docusate Sodium 8.6/50 MG Tablet PO SCH ×2 (08:49→20:08)
[2017-12-10] MEDS: Enoxaparin Inj 40 MG/0.4 ML Syringe SQ SCH (10:04)
[2017-12-10] MEDS: METRONIDAZOLE 500 MG IV.SIG ONE (12:18)
[2017-12-10] MEDS: ceFAZolin 2 GM Premix Inj 2 GM/50 ML PIGGYBACK IV.SIG ONE (12:18)
[2017-12-10] MEDS ORDERED: hydrALAZINE HCl Inj 20 MG/ML Vial IV.PUSH PRN (12:25)
[2017-12-10] MEDS: fentaNYL 10 mcg/mL Premix Drip 2,500 MCG/250 ML BAG IV.SIG PRN (12:53)
--- NOTE | 2017-12-10 15:44 | P.PNCC ---
Subjective Brief History: SOKAOGON: This is a 62 year old female who sustained a fall. She states she was at the methadone where she was knocked out of her wheelchair and she fell. Injuries: Left adrenal gland contusion Splenic laceration with hemorrhage Left old rib fractures (multiple) PMHx: PMHx: COPD, CHF, CVA w/ left hemiparesis. tobacco use. 11/09/2017 24 Hour Review/Hospital Course: 12/04/2017 Patient lying in bed. No distress noted. Patient states, "they knocked me out of my wheelchair." Complains of slight abdominal pain Patient is asking for 6 mg of Ativan 12/09/2017 62-year-old female appearing much older than her actual age was involved in a fall from a wheelchair at the methadone clinic sustained splenic laceration pulmonary contusion and adrenal gland contusion Patient had previous CVA has severe COPD and CHF episodes with residual left hemiparesis Patient was doing well and was ready to discharge to rehab however this morning became listless and barely responsive Neurologically patient is depressed level of consciousness with Lacy Coma Scale about 9 or 10 Left hemiplegia moves the right side but does not follow any commands opens eyes assisted but does not track Patient is immediately intubated and ventilated to protect the upper airway Bilateral breath sounds Arterial blood gases reveal hypercapnia and hypoxia which is sometimes consistent with pulmonary embolism but also with tachypneic hypo-oxygenation from other reasons including aspiration, exacerbation of COPD or iatrogenic depression. There is according to the nursing staff a question whether patient might have received methadone from an outside source yesterday night or this morning. Hemodynamically patient appears to be intact and is holding systolic blood pressure and heart rate Abdomen is soft and patulous apparently patient threw up 3 times last night Patient now transferred to ICU for further care and workup Patient underwent full workup and the CT scan she is found to have a large perisplenic hematoma consistent with delayed splenic hematoma rupture. Patient is given 2 units PRBC for hemoglobin of 7.5 g/dL and taken immediately to the operating room for splenectomy 12/10/2017 Patient yesterday developed lethargy and became very somnolent and obtunded for unknown reasons Hemoglobin was 7.5 g/dL which is only 1 g change since the day before yet patient became listless in the afternoon hours CT scan was repeated which shows left upper quadrant collection consistent with perisplenic hematoma and the rupture of the intraparenchymal grade 3 splenic hematoma into the free peritoneal space. Patient was taken to the operating room underwent splenectomy and washout of the abdomen has been stable ever since Patient is currently intubated ventilated sedated Hemodynamically stable Abdomen soft few bowel sounds incision is clean and dry and ROM drainage has decreased it serosanguineous at this time Objective Vital Signs / I&O: Vital Signs 12/09/17 16:00 12/09/17 17:11 12/09/17 17:20 Temperature 99 F Pulse Rate 120 H Respiratory Rate 24 35 H Blood Pressure 140/82 Pulse Oximetry 96 100 12/09/17 18:00 12/09/17 18:26 12/09/17 18:29 Temperature 99 F 99 F Pulse Rate 120 H 122 H 118 H Respiratory Rate 24 24 Blood Pressure 107/58 L 107/58 L Pulse Oximetry 100 100 12/09/17 18:50 12/09/17 20:00 12/09/17 20:39 Temperature 97.5 F L Pulse Rate 100 H Respiratory Rate 14 12 Blood Pressure 121/67 Pulse Oximetry 100 98 99 12/09/17 22:00 12/10/17 00:00 12/10/17 00:47 Temperature 98.6 F Pulse Rate 96 H 100 H Respiratory Rate 17 22 Blood Pressure 162/93 H Pulse Oximetry 96 96 12/10/17 02:00 12/10/17 04:00 12/10/17 04:35 Temperature 99.0 F Pulse Rate 106 H 110 H Respiratory Rate 17 19 Blood Pressure 167/97 H Pulse Oximetry 98 96 12/10/17 06:00 12/10/17 08:00 12/10/17 08:15 Temperature 99.2 F Pulse Rate 102 H 109 H Respiratory Rate 19 23 Blood Pressure 165/97 H Pulse Oximetry 96 96 12/10/17 10:00 12/10/17 11:14 12/10/17 12:00 Temperature 98.6 F Pulse Rate 110 H 105 H Respiratory Rate 15 17 Blood Pressure 201/93 H Pulse Oximetry 100 100 12/10/17 14:00 Temperature Pulse Rate 107 H Respiratory Rate Blood Pressure Pulse Oximetry Intake & Output 12/09/17 12/10/17 12/10/17 18:59 06:59 18:59 Intake Total 0 / 0 2650 / 2650 1300 / 1300 Output Total 1300 / 1300 1075 / 1075 Balance -1300 / -1300 1575 / 1575 1300 / 1300 Weight 65.3 kg Intake: IV 1450 / 1450 1300 / 1300 Versed Inj 50 mg In 50 ml @ 2 100 / 100 MG/HR 2 mls/hr IV.CONT TITRATE PRN Rx#:[id number] NS Inj 1,000 ML @ 150 mls/hr IV 1000 / 1000 1000 / 1000 .CONT .Q6H40M [facility] Rx#:[id number] Zosyn 3.375 GM Premix 50 ML @ 100 / 100 50 / 50 100 mls/hr IV.SIG Q8H [facility] Rx#: [id number] Ancef 2 GM Premix Inj 2 gm In 50 / 50 50 ml @ 0 mls/hr IV.SIG [facility] Rx#:[id number] fentaNYL 10 mcg/mL Premix Drip 250 / 250 2,500 mcg In 250 ml @ 50 MCG/HR 5 mls/hr IV.SIG TITRATE PRN Rx #:[id number] Flagyl 500 MG Inj 200 ML @ 0 200 / 200 mls/hr IV.SIG .[facility] Rx#: [id number] Anesthesia Amount 1200 / 1200 Intake (Blood Product) Amt 0 / 0 Rbc As-3 Leukoreduced Unit 0 / 0 [id number] Rbc As-3 Leukoreduced Unit 0 / 0 [id number] Output: Urine 1000 / 1000 Estimated Blood Loss 600 / 600 Urine Amount (Catheter) 300 / 300 425 / 425 Indwelling Urethral Catheter 300 / 300 425 / 425 Wound Drainage 50 / 50 # 1 Abdomen 50 / 50 Other: # Voids 2 # Urine Diapers 1 Date of Last Bowel Movement 12/09/17 12/10/17 # Bowel Movements 1 1 Result Diagrams: 12/10/17 05:15 12/10/17 05:15 Imaging: Impressions Chest CTA 12/09/17 00:00 CONCLUSION: 1. No evidence of pulmonary embolus. 2. Suspect additional interval splenic hemorrhage. Recommend CTA examination of the abdomen for further evaluation 3. Findings were reported to Dr. Boyd Head CT 12/09/17 00:00 CONCLUSION: 1. Negative noncontrast head CT. Liver Ultrasound 12/09/17 00:00 CONCLUSION: 1. Complex collection in the left upper quadrant which is contiguous with the spleen. This appears to represent the spleen and adjacent known hemorrhage. This is best evaluated and followed by CT. 2. Limited suboptimal examination. Disinhibition Score: 17.50 Aggression Score: 14.00 Lability Score: 14.00 Agitated Behavior Total Score: 16 - Exam LIBRARIAN HELPER: Intubated ventilated sedated on Versed and morphine Will wean patient down at this point and decrease sedation with plan to extubate Patient is on home methadone and this makes pain management and general care somewhat more difficult and complex Hemodynamic/Cardiac: Hemodynamically stable hemoglobin remained stable Patient is quite hypertensive and Lopressor hydralazine and Catapres patch have been added to the management Pulmonary/Respiratory: Bilateral good breath sounds on AC mode ventilation Will decrease sedation place patient on CPAP if she does well will extubate Abdomen/GI Nutrition: Abdomen soft incision clean and dry Renal/I&O: Renal function well-preserved good urine output and hydration Assessment and Plan Plan: SOKAOGON: This is a 62 year old female who sustained a fall. She states she was at the methadone where she was knocked out of her wheelchair and she fell. Injuries: Left adrenal gland contusion Splenic laceration with hemorrhage Left old rib fractures (multiple) PMHx: PMHx: COPD, CHF, CVA w/ left hemiparesis. tobacco use. Procedures: 12/03: Angiogram, embolization of the lower branches of splenic artery w/ coils and gelfoam Consults: Case management Diet: Advance to regular diet. Tolerating po diet. Encourage good po intake with each meal. Pulmonary: Encourage good pulmonary toileting. IS at bedside and pt encouraged to use. Rationale for use explained to patient, and verbalized understanding. PAIN Management: Percocet 5 mg every 6 hours. Morphine 4 mg every 3 hours for breakthrough pain. Anxiety: Ativan 1 mg TID Activity: OOB. PT and OT ordered. GI prophylaxis: Protonix 40 mg IV Bowel regimen: Bouchra-Colace. MOM. Lactulose PRN. SEnna PRN. Bisacodyl PRN. LBM: 0 DVT prophylaxis: Mechanical VTE with SCDs. Chemical management contraindicated at this time due to splenic laceration DC Planning: Case management consulted for assistance with final discharge disposition. Emotional support provided to patient and family at bedside and plan of care discussed. Discussed with RN at bedside during trauma rounds. Discussed pt condition and plan of care with collaborating trauma surgeon. Patient is hemodynamically stable in the ICU and therefore can be transferred managed on the med/surg floor. The trauma team will round each day, and evaluate plan of care on a daily basis. LEFT adrenal gland contusion Grade III splenic laceration Supportive care 12/03: Angiogram, embolization of the lower branches of splenic artery w/ coils and Gelfoam Trend H&H H&H = 8.08/11 Does not meet transfusion triggers at this time Monitor s/s of bleeding Telemetry If hgb drops or patient becomes unstable consider splenectomy Pain control management Hold Methadone while on Morphine Bowel regimen Hold DVT prophylaxis. Continue SCD Attestation: Critical care 34 minutes
[2017-12-10] MEDS ORDERED: hydrALAZINE 25 MG Tablet PO ONE (17:00)
[2017-12-11] MEDS: fentaNYL 10 mcg/mL Premix Drip 2,500 MCG/250 ML BAG IV.SIG PRN (00:22)
[2017-12-11] MEDS: Oral Hygiene Kit OROPHARYNG SCH ×3 (00:24→11:31)
[2017-12-11] MEDS: hydrALAZINE 25 MG Tablet PO SCH ×4 (00:24→18:13)
[2017-12-11] MEDS: Sod Chloride 0.9% Inj 1,000 ML IV.CONT SCH ×4 (01:59→21:56)
[2017-12-11 04:45] LABS: Alanine Aminotransferase 183 U/L (10-53); Alkaline Phosphatase 60 U/L (45-117); Anion Gap 10 meq/L (5-15); Aspartate Aminotransferase 230 U/L (15-37); Blood Urea Nitrogen 21 mg/dL (7-18); Calcium 7.3 mg/dL (8.5-10.1); Carbon Dioxide 21.5 meq/L (21.0-32.0); Chloride 115 meq/L (98-107); Glomerular Filtration Rate Greater Than 89 mL/min (>89); Glucose,Random 91 mg/dL (74-106); Potassium 3.7 meq/L (3.5-5.1); Sodium 146 meq/L (136-145); Total Protein 5.2 g/dL (6.4-8.2)
[2017-12-11 04:52] LABS: Baso % (Auto) 0.2 % (0.0-2.0); Eos % (Auto) 0.1 % (0.0-4.0); Hematocrit 24.4 % (35.0-46.0); Hemoglobin 8.1 gm/dL (11.6-15.3); Lymph # (Auto) 1.4 th/mm3 (1.0-4.8); Lymph % (Auto) 10.6 % (9.0-44.0); Mean Corpuscular HGB Conc 33.1 % (32.0-36.0); Mean Corpuscular Hemoglobin 27.1 pg (27.0-34.0); Mono # (Auto) 1.6 th/mm3 (0.0-0.9); Mono % (Auto) 11.6 % (0.0-8.0); Neut # (Auto) 10.6 th/mm3 (1.8-7.7); Neut % (Auto) 77.5 % (16.0-70.0); Platelet Count 230 th/mm3 (150-450); Red Blood Count 2.98 mil/mm3 (4.00-5.30); Red Cell Distribution Width 17.6 % (11.6-17.2); White Blood Count 13.7 th/mm3 (4.0-11.0)
[2017-12-11] MEDS: Metoprolol Inj 5 MG/5 ML Vial IV.PUSH SCH ×3 (05:04→16:38)
[2017-12-11] MEDS: Piperacil/Tazo 3.375 GM Premix 50 ML IV.SIG SCH ×3 (05:04→20:14)
[2017-12-11] MEDS: Senna/Docusate Sodium 8.6/50 MG Tablet PO SCH ×2 (08:45→20:14)
[2017-12-11] MEDS: Chlorhexidine 0.12% Oral Kit 15 ML UDC OROPHARYNG SCH (08:45)
[2017-12-11] MEDS: Pantoprazole Inj 40 MG Vial IV.PUSH SCH (08:45)
[2017-12-11] MEDS: Enoxaparin Inj 40 MG/0.4 ML Syringe SQ SCH (08:45)
[2017-12-11] MEDS: Methadone Liq 10 MG/10 ML UDC PO SCH (14:29)
--- NOTE | 2017-12-11 16:44 | P.PNCC ---
Subjective Brief History: COWLITZ: This is a 62 year old female who sustained a fall. She states she was at the methadone where she was knocked out of her wheelchair and she fell. Injuries: Left adrenal gland contusion Splenic laceration with hemorrhage Left old rib fractures (multiple) PMHx: PMHx: COPD, CHF, CVA w/ left hemiparesis. tobacco use. 11/09/2017 24 Hour Review/Hospital Course: 12/04/2017 Patient lying in bed. No distress noted. Patient states, "they knocked me out of my wheelchair." Complains of slight abdominal pain Patient is asking for 6 mg of Ativan 12/09/2017 62-year-old female appearing much older than her actual age was involved in a fall from a wheelchair at the methadone clinic sustained splenic laceration pulmonary contusion and adrenal gland contusion Patient had previous CVA has severe COPD and CHF episodes with residual left hemiparesis Patient was doing well and was ready to discharge to rehab however this morning became listless and barely responsive Neurologically patient is depressed level of consciousness with Lacy Coma Scale about 9 or 10 Left hemiplegia moves the right side but does not follow any commands opens eyes fci but does not track Patient is immediately intubated and ventilated to protect the upper airway Bilateral breath sounds Arterial blood gases reveal hypercapnia and hypoxia which is sometimes consistent with pulmonary embolism but also with tachypneic hypo-oxygenation from other reasons including aspiration, exacerbation of COPD or iatrogenic depression. There is according to the nursing staff a question whether patient might have received methadone from an outside source yesterday night or this morning. Hemodynamically patient appears to be intact and is holding systolic blood pressure and heart rate Abdomen is soft and patulous apparently patient threw up 3 times last night Patient now transferred to ICU for further care and workup Patient underwent full workup and the CT scan she is found to have a large perisplenic hematoma consistent with delayed splenic hematoma rupture. Patient is given 2 units PRBC for hemoglobin of 7.5 g/dL and taken immediately to the operating room for splenectomy 12/10/2017 Patient yesterday developed lethargy and became very somnolent and obtunded for unknown reasons Hemoglobin was 7.5 g/dL which is only 1 g change since the day before yet patient became listless in the afternoon hours CT scan was repeated which shows left upper quadrant collection consistent with perisplenic hematoma and the rupture of the intraparenchymal grade 3 splenic hematoma into the free peritoneal space. Patient was taken to the operating room underwent splenectomy and washout of the abdomen has been stable ever since Patient is currently intubated ventilated sedated Hemodynamically stable Abdomen soft few bowel sounds incision is clean and dry and ROM drainage has decreased it serosanguineous at this time 12/11/2017 Patient doing well at this time Successfully extubated Incision clean and dry and ROM drainage serosanguineous minimal Hemoglobin drop is mainly delusional and I am not concerned about any ongoing bleeding Plan Extubate patient today Out of bed Start on liquid diet and methadone Objective Vital Signs / I&O: Vital Signs 12/10/17 18:00 12/10/17 20:00 12/10/17 20:10 Temperature 99.1 F Pulse Rate 98 H 104 H Respiratory Rate 15 18 Blood Pressure 130/57 L Pulse Oximetry 100 100 12/10/17 22:00 12/11/17 00:00 12/11/17 00:06 Temperature 98.5 F Pulse Rate 100 H 97 H Respiratory Rate 16 15 Blood Pressure 136/58 L Pulse Oximetry 100 100 12/11/17 02:00 12/11/17 03:26 12/11/17 04:00 Temperature 98.4 F Pulse Rate 96 H 95 H Respiratory Rate 15 15 Blood Pressure 121/62 Pulse Oximetry 100 100 12/11/17 06:00 12/11/17 08:00 12/11/17 08:29 Temperature Pulse Rate 90 94 H Respiratory Rate 20 Blood Pressure Pulse Oximetry 100 12/11/17 10:00 12/11/17 12:00 12/11/17 14:00 Temperature Pulse Rate 98 H 86 102 H Respiratory Rate Blood Pressure Pulse Oximetry 12/11/17 15:42 Temperature Pulse Rate Respiratory Rate 20 Blood Pressure Pulse Oximetry Intake & Output 12/10/17 12/11/17 12/11/17 18:59 06:59 18:59 Intake Total 2300 / 2300 1400 / 1400 1330 / 1330 Output Total 540 / 540 695 / 695 Balance 1760 / 1760 705 / 705 1330 / 1330 Weight 68.2 kg Intake: IV 2300 / 2300 1400 / 1400 1330 / 1330 Versed Inj 50 mg In 50 ml @ 2 50 / 50 30 / 30 MG/HR 2 mls/hr IV.CONT TITRATE PRN Rx#:[id number] NS Inj 1,000 ML @ 150 mls/hr IV 2000 / 2000 1000 / 1000 1000 / 1000 .CONT .Q6H40M [facility] Rx#:[id number] Zosyn 3.375 GM Premix 50 ML @ 50 / 50 100 / 100 50 / 50 100 mls/hr IV.SIG Q8H [facility] Rx#: [id number] fentaNYL 10 mcg/mL Premix Drip 250 / 250 250 / 250 250 / 250 2,500 mcg In 250 ml @ 50 MCG/HR 5 mls/hr IV.SIG TITRATE PRN Rx #:[id number] Output: Urine Amount (Catheter) 370 / 370 625 / 625 Indwelling Urethral Catheter 370 / 370 625 / 625 Gastric Drainage 150 / 150 50 / 50 Orogastric Tube 150 / 150 50 / 50 Wound Drainage / 20 20 / 20 # 1 Abdomen Other: Date of Last Bowel Movement 12/10/17 12/10/17 # Bowel Movements 0 0 Result Diagrams: 12/11/17 03:45 12/11/17 03:45 Disinhibition Score: 15.75 Aggression Score: 14.00 Lability Score: 14.00 Agitated Behavior Total Score: 15 - Exam FRETTED INSTRUMENT MAKER HAND: Awake alert oriented Hemodynamic/Cardiac: Hemodynamically stable and dropping hemoglobin is mainly dilutional Pulmonary/Respiratory: Bilateral good breath sounds good pulmonary function patient successfully extubated this morning Abdomen/GI Nutrition: Abdomen soft incision clean and dry Change dressings daily Renal/I&O: Renal function well-preserved Assessment and Plan Plan: COWLITZ: This is a 62 year old female who sustained a fall. She states she was at the methadone where she was knocked out of her wheelchair and she fell. Injuries: Left adrenal gland contusion Splenic laceration with hemorrhage Left old rib fractures (multiple) PMHx: PMHx: COPD, CHF, CVA w/ left hemiparesis. tobacco use. Procedures: 12/03: Angiogram, embolization of the lower branches of splenic artery w/ coils and gelfoam Consults: Case management Diet: Advance to regular diet. Tolerating po diet. Encourage good po intake with each meal. Pulmonary: Encourage good pulmonary toileting. IS at bedside and pt encouraged to use. Rationale for use explained to patient, and verbalized understanding. PAIN Management: Percocet 5 mg every 6 hours. Morphine 4 mg every 3 hours for breakthrough pain. Anxiety: Ativan 1 mg TID Activity: OOB. PT and OT ordered. GI prophylaxis: Protonix 40 mg IV Bowel regimen: Bouchra-Colace. MOM. Lactulose PRN. SEnna PRN. Bisacodyl PRN. LBM: 0 DVT prophylaxis: Mechanical VTE with SCDs. Chemical management contraindicated at this time due to splenic laceration DC Planning: Case management consulted for assistance with final discharge disposition. Emotional support provided to patient and family at bedside and plan of care discussed. Discussed with RN at bedside during trauma rounds. Discussed pt condition and plan of care with collaborating trauma surgeon. Patient is hemodynamically stable in the ICU and therefore can be transferred managed on the med/surg floor. The trauma team will round each day, and evaluate plan of care on a daily basis. LEFT adrenal gland contusion Grade III splenic laceration Supportive care 12/03: Angiogram, embolization of the lower branches of splenic artery w/ coils and Gelfoam Trend H&H H&H = 8.3 Does not meet transfusion triggers at this time Monitor s/s of bleeding Telemetry If hgb drops or patient becomes unstable consider splenectomy Pain control management Hold Methadone while on Morphine Bowel regimen Hold DVT prophylaxis. Continue SCD Attestation: Transfer patient to floor Critical care time 32 minutes
[2017-12-12] MEDS: hydrALAZINE 25 MG Tablet PO SCH ×4 (00:05→18:24)
[2017-12-12] MEDS: Metoprolol Inj 5 MG/5 ML Vial IV.PUSH SCH ×3 (00:05→09:59)
[2017-12-12] MEDS: Piperacil/Tazo 3.375 GM Premix 50 ML IV.SIG SCH (04:30)
[2017-12-12 04:54] LABS: Baso % (Auto) 0.4 % (0.0-2.0); Eos # (Auto) 0.4 th/mm3 (0.0-0.4); Eos % (Auto) 2.8 % (0.0-4.0); Lymph # (Auto) 1.6 th/mm3 (1.0-4.8); Lymph % (Auto) 12.6 % (9.0-44.0); Mean Corpuscular HGB Conc 33.1 % (32.0-36.0); Mean Corpuscular Hemoglobin 27.5 pg (27.0-34.0); Mean Corpuscular Volume 83.1 fL (80.0-100.0); Mean Platelet Volume 8.8 fL (7.0-11.0); Mono # (Auto) 1.1 th/mm3 (0.0-0.9); Neut # (Auto) 9.6 th/mm3 (1.8-7.7); Neut % (Auto) 75.2 % (16.0-70.0); Platelet Count 254 th/mm3 (150-450); Red Blood Count 2.53 mil/mm3 (4.00-5.30); White Blood Count 12.7 th/mm3 (4.0-11.0)
[2017-12-12 04:59] LABS: Hemoglobin 6.9 gm/dL (11.6-15.3)
[2017-12-12 05:16] LABS: Anion Gap 9 meq/L (5-15)
[2017-12-12] MEDS: Sod Chloride 0.9% Inj 1,000 ML IV.CONT SCH (05:17)
[2017-12-12 05:19] LABS: Alanine Aminotransferase 189 U/L (10-53); Alkaline Phosphatase 62 U/L (45-117); Aspartate Aminotransferase 177 U/L (15-37); Blood Urea Nitrogen 17 mg/dL (7-18); Calcium 7.4 mg/dL (8.5-10.1); Carbon Dioxide 23.4 meq/L (21.0-32.0); Chloride 111 meq/L (98-107); Glomerular Filtration Rate Greater Than 89 mL/min (>89); Glucose,Random 80 mg/dL (74-106); Potassium 3.3 meq/L (3.5-5.1); Sodium 143 meq/L (136-145); Total Protein 5.4 g/dL (6.4-8.2)
[2017-12-12 06:37] LABS: Eosinophils 2 % (0-4); Lymphocytes 12 % (9-44); Monocytes 6 % (0-8)
[2017-12-12 06:38] LABS: Platelet Estimate Normal (Normal); Platelet Morphology Normal (Normal); Polychromasia 2.4 % (0.0-1.9)
[2017-12-12] MEDS: Pantoprazole Inj 40 MG Vial IV.PUSH SCH (09:50)
[2017-12-12] MEDS: Senna/Docusate Sodium 8.6/50 MG Tablet PO SCH ×2 (09:51→22:24)
[2017-12-12] MEDS: Enoxaparin Inj 40 MG/0.4 ML Syringe SQ SCH (09:58)
[2017-12-12] MEDS ORDERED: Sodium Chlor 0.9% Inj 250 ML IV.SIG SCH (10:00)
[2017-12-12] MEDS: Methadone Liq 10 MG/10 ML UDC PO SCH (11:35)
[2017-12-12] MEDS: ALPRAZolam 0.5 MG Tablet PO SCH ×2 (14:09→22:22)
--- NOTE | 2017-12-12 16:41 | P.PNCC ---
Subjective Brief History: [place]: This is a 62 year old female who sustained a fall. She states she was at the methadone where she was knocked out of her wheelchair and she fell. Injuries: Left adrenal gland contusion Splenic laceration with hemorrhage Left old rib fractures (multiple) PMHx: PMHx: COPD, CHF, CVA w/ left hemiparesis. tobacco use. 11/09/2017 24 Hour Review/Hospital Course: 12/04/2017 Patient lying in bed. No distress noted. Patient states, "they knocked me out of my wheelchair." Complains of slight abdominal pain Patient is asking for 6 mg of Ativan 12/09/2017 62-year-old female appearing much older than her actual age was involved in a fall from a wheelchair at the methadone clinic sustained splenic laceration pulmonary contusion and adrenal gland contusion Patient had previous CVA has severe COPD and CHF episodes with residual left hemiparesis Patient was doing well and was ready to discharge to rehab however this morning became listless and barely responsive Neurologically patient is depressed level of consciousness with [place] Coma Scale about 9 or 10 Left hemiplegia moves the right side but does not follow any commands opens eyes senior care but does not track Patient is immediately intubated and ventilated to protect the upper airway Bilateral breath sounds Arterial blood gases reveal hypercapnia and hypoxia which is sometimes consistent with pulmonary embolism but also with tachypneic hypo-oxygenation from other reasons including aspiration, exacerbation of COPD or iatrogenic depression. There is according to the nursing staff a question whether patient might have received methadone from an outside source yesterday night or this morning. Hemodynamically patient appears to be intact and is holding systolic blood pressure and heart rate Abdomen is soft and patulous apparently patient threw up 3 times last night Patient now transferred to ICU for further care and workup Patient underwent full workup and the CT scan she is found to have a large perisplenic hematoma consistent with delayed splenic hematoma rupture. Patient is given 2 units PRBC for hemoglobin of 7.5 g/dL and taken immediately to the operating room for splenectomy 12/10/2017 Patient yesterday developed lethargy and became very somnolent and obtunded for unknown reasons Hemoglobin was 7.5 g/dL which is only 1 g change since the day before yet patient became listless in the afternoon hours CT scan was repeated which shows left upper quadrant collection consistent with perisplenic hematoma and the rupture of the intraparenchymal grade 3 splenic hematoma into the free peritoneal space. Patient was taken to the operating room underwent splenectomy and washout of the abdomen has been stable ever since Patient is currently intubated ventilated sedated Hemodynamically stable Abdomen soft few bowel sounds incision is clean and dry and ROM drainage has decreased it serosanguineous at this time 12/11/2017 Patient doing well at this time Successfully extubated Incision clean and dry and ROM drainage serosanguineous minimal Hemoglobin drop is mainly delusional and I am not concerned about any ongoing bleeding Plan Extubate patient today Out of bed Start on liquid diet and methadone 12/12/2017 Patient doing well at this time she is awake alert and oriented Neurologically fully intact Abdomen is soft with active bowel sounds and incision is clean and dry DC ROM drain Transfer patient to floor Anemic due to hemodilution and re-equilibration as well as probably primary erythropoiesis problems due to stress We will transfuse 2 units PRBC Objective Vital Signs / I&O: Vital Signs 12/11/17 18:00 12/11/17 20:00 12/11/17 22:00 Temperature 98.6 F Pulse Rate 101 H 97 H 90 Respiratory Rate 22 Blood Pressure 106/59 L Pulse Oximetry 93 L 12/12/17 00:00 12/12/17 02:00 12/12/17 04:00 Temperature 98.8 F 98.7 F Pulse Rate 88 85 80 Respiratory Rate 13 12 Blood Pressure 110/56 L 131/67 Pulse Oximetry 98 99 12/12/17 06:00 12/12/17 07:46 12/12/17 08:00 Temperature 98.6 F Pulse Rate 77 82 Respiratory Rate 14 Blood Pressure 123/60 Pulse Oximetry 99 98 12/12/17 10:00 12/12/17 11:56 12/12/17 12:00 Temperature 98.4 F 98.4 F Pulse Rate 74 85 82 Respiratory Rate 22 20 Blood Pressure 174/82 H 166/80 H Pulse Oximetry 97 96 12/12/17 13:23 12/12/17 13:35 12/12/17 14:00 Temperature 97.8 F 98.6 F Pulse Rate 80 84 81 Respiratory Rate 22 18 Blood Pressure 165/82 H 169/82 H Pulse Oximetry 96 95 12/12/17 16:00 12/12/17 16:08 Temperature Pulse Rate 85 Respiratory Rate 22 Blood Pressure Pulse Oximetry Intake & Output 12/11/17 12/12/17 12/12/17 18:59 06:59 18:59 Intake Total 1810 / 1810 820 / 820 400 / 400 Output Total 2630 / 2630 320 / 320 Balance -820 / -820 500 / 500 400 / 400 Weight 68.2 kg Intake: IV 1330 / 1330 100 / 100 Versed Inj 50 mg In 50 ml @ 2 30 / 30 MG/HR 2 mls/hr IV.CONT TITRATE PRN Rx#:[id number] NS Inj 1,000 ML @ 150 mls/hr IV 1000 / 1000 .CONT .[id number] [facility] Rx#:[id number] Zosyn 3.375 GM Premix 50 ML @ 50 / 50 100 / 100 100 mls/hr IV.SIG Q8H [facility] Rx#: [id number] fentaNYL 10 mcg/mL Premix Drip 250 / 250 2,500 mcg In 250 ml @ 50 MCG/HR 5 mls/hr IV.SIG TITRATE PRN Rx #:[id number] Oral 480 / 480 720 / 720 Intake (Blood Product) Amt 400 / 400 Rbc As-3 Leukoreduced Unit 0 / 0 [id number] Rbc As-3 Leukoreduced Unit 400 / 400 [id number] Output: Urine 300 / 300 Urine Amount (Catheter) 2600 / 2600 Indwelling Urethral Catheter 2600 / 2600 Gastric Drainage 20 / 20 Orogastric Tube 20 / 20 Wound Drainage 10 / 10 20 / 20 # 1 Abdomen 10 / 10 20 / 20 Other: # Voids 1 Date of Last Bowel Movement 12/10/17 12/10/17 12/10/17 # Bowel Movements 0 Result Diagrams: 12/12/17 04:40 12/12/17 04:40 Disinhibition Score: 14.00 Aggression Score: 14.00 Lability Score: 14.00 Agitated Behavior Total Score: 14 Assessment and Plan Plan: [place]: This is a 62 year old female who sustained a fall. She states she was at the methadone where she was knocked out of her wheelchair and she fell. Injuries: Left adrenal gland contusion Splenic laceration with hemorrhage Left old rib fractures (multiple) PMHx: PMHx: COPD, CHF, CVA w/ left hemiparesis. tobacco use. Procedures: 12/03: Angiogram, embolization of the lower branches of splenic artery w/ coils and gelfoam Consults: Case management Diet: Advance to regular diet. Tolerating po diet. Encourage good po intake with each meal. Pulmonary: Encourage good pulmonary toileting. IS at bedside and pt encouraged to use. Rationale for use explained to patient, and verbalized understanding. PAIN Management: Percocet 5 mg every 6 hours. Morphine 4 mg every 3 hours for breakthrough pain. Anxiety: Ativan 1 mg TID Activity: OOB. PT and OT ordered. GI prophylaxis: Protonix 40 mg IV Bowel regimen: Bouchra-Colace. MOM. Lactulose PRN. SEnna PRN. Bisacodyl PRN. LBM: 0 DVT prophylaxis: Mechanical VTE with SCDs. Chemical management contraindicated at this time due to splenic laceration DC Planning: Case management consulted for assistance with final discharge disposition. Emotional support provided to patient and family at bedside and plan of care discussed. Discussed with RN at bedside during trauma rounds. Discussed pt condition and plan of care with collaborating trauma surgeon. Patient is hemodynamically stable in the ICU and therefore can be transferred managed on the med/surg floor. The trauma team will round each day, and evaluate plan of care on a daily basis. LEFT adrenal gland contusion Grade III splenic laceration Supportive care 12/03: Angiogram, embolization of the lower branches of splenic artery w/ coils and Gelfoam Trend H&H H&H = 8.3/25 Does not meet transfusion triggers at this time Monitor s/s of bleeding Telemetry If hgb drops or patient becomes unstable consider splenectomy Pain control management Hold Methadone while on Morphine Bowel regimen Hold DVT prophylaxis. Continue SCD Attestation: Patient awaiting bed on the floor therefore critical care time is not charged
[2017-12-12] MEDS: Temazepam 15 MG Capsule PO SCH (22:22)
[2017-12-12] MEDS: Metoprolol Tartrate 25 MG Tablet PO SCH (22:22)
[2017-12-13] MEDS: hydrALAZINE 25 MG Tablet PO SCH ×5 (02:06→23:35)
[2017-12-13 07:03] LABS: Baso # (Auto) 0.1 th/mm3 (0.0-0.2); Baso % (Auto) 0.4 % (0.0-2.0); Eos # (Auto) 0.2 th/mm3 (0.0-0.4); Eos % (Auto) 1.9 % (0.0-4.0); Hematocrit 33.7 % (35.0-46.0); Lymph # (Auto) 1.7 th/mm3 (1.0-4.8); Lymph % (Auto) 13.7 % (9.0-44.0); Mean Corpuscular HGB Conc 32.5 % (32.0-36.0); Mean Corpuscular Hemoglobin 27.1 pg (27.0-34.0); Mean Corpuscular Volume 83.3 fL (80.0-100.0); Mean Platelet Volume 8.7 fL (7.0-11.0); Mono # (Auto) 1.6 th/mm3 (0.0-0.9); Mono % (Auto) 12.5 % (0.0-8.0); Neut # (Auto) 9.1 th/mm3 (1.8-7.7); Neut % (Auto) 71.5 % (16.0-70.0); Platelet Count 270 th/mm3 (150-450); Red Blood Count 4.05 mil/mm3 (4.00-5.30); Red Cell Distribution Width 16.5 % (11.6-17.2); White Blood Count 12.7 th/mm3 (4.0-11.0)
[2017-12-13 07:19] LABS: Anion Gap 9 meq/L (5-15); Blood Urea Nitrogen 15 mg/dL (7-18); Calcium 8.1 mg/dL (8.5-10.1); Carbon Dioxide 26.2 meq/L (21.0-32.0); Chloride 107 meq/L (98-107); Glomerular Filtration Rate Greater Than 89 mL/min (>89); Glucose,Random 73 mg/dL (74-106); Potassium 3.6 meq/L (3.5-5.1); Sodium 142 meq/L (136-145)
[2017-12-13] MEDS: Senna/Docusate Sodium 8.6/50 MG Tablet PO SCH ×2 (09:52→20:36)
[2017-12-13] MEDS: Enoxaparin Inj 40 MG/0.4 ML Syringe SQ SCH (09:52)
[2017-12-13] MEDS: Metoprolol Tartrate 25 MG Tablet PO SCH ×2 (09:52→20:34)
[2017-12-13] MEDS: Famotidine 20 MG Tablet PO SCH ×2 (09:52→20:36)
[2017-12-13] MEDS: ALPRAZolam 0.5 MG Tablet PO SCH ×3 (09:53→17:35)
[2017-12-13] MEDS: Methadone Liq 10 MG/10 ML UDC PO SCH (09:53)
--- NOTE | 2017-12-13 11:36 | P.PNGS ---
<Raymundo Jasso M - Last Filed: 12/13/17 11:30> Subjective Interval history: Reports feeling much better today Tolerating p.o. Physical Exam Vital signs: Vital Signs 12/12/17 11:56 12/12/17 12:00 12/12/17 13:23 Temperature 98.4 F 98.4 F 97.8 F Pulse Rate 85 82 80 Respiratory Rate 22 20 22 Blood Pressure 174/82 H 166/80 H 165/82 H Pulse Oximetry 97 96 96 12/12/17 13:35 12/12/17 14:00 12/12/17 16:00 Temperature 98.6 F 97.7 F Pulse Rate 84 81 88 Respiratory Rate 18 14 Blood Pressure 169/82 H 160/76 H Pulse Oximetry 95 93 L 12/12/17 16:08 12/12/17 18:00 12/12/17 20:33 Temperature Pulse Rate 78 Respiratory Rate 22 Blood Pressure Pulse Oximetry 97 12/12/17 21:20 12/12/17 22:15 12/13/17 00:42 Temperature 98.2 F 97.3 F L Pulse Rate 87 80 Respiratory Rate 21 18 Blood Pressure 133/72 139/68 Pulse Oximetry 93 L 93 L 92 L 12/13/17 01:13 12/13/17 04:28 12/13/17 08:00 Temperature 97.4 F L 97.7 F Pulse Rate 72 67 73 Respiratory Rate 18 16 Blood Pressure 133/69 141/66 H Pulse Oximetry 93 L 90 L Intake & Output 12/12/17 12/13/17 12/13/17 18:59 06:59 18:59 Intake Total 1840 / 1840 480 / 480 Output Total 3910 / 3910 Balance -2070 / -2070 480 / 480 Weight 68 kg Intake: Oral 640 / 640 480 / 480 Other 300 / 300 Intake (Blood Product) Amt 400 / 400 Rbc As-3 Leukoreduced Unit 0 / 0 [id number] Rbc As-3 Leukoreduced Unit 400 / 400 [id number] [employer] Amount 500 / 500 Output: Urine 700 / 700 Estimated Blood Loss 600 / 600 Urine Amount (Catheter) 2600 / 2600 Indwelling Urethral Catheter 2600 / 2600 Wound Drainage # 1 Abdomen Other: Other Intake Source Saline Solution # Voids 1 Date of Last Bowel Movement 12/10/17 12/09/17 # Bowel Movements 0 Narrative: GENERAL: 62-year-old frail looking female lying in bed. SKIN: Warm and dry. HEAD: Normocephalic. EYES: Pupils equal and round. No scleral icterus. ENT: No nasal bleeding or discharge. Mucous membranes pink and moist. NECK: Trachea midline. No JVD. CARDIOVASCULAR: Regular rate and rhythm. RESPIRATORY: No accessory muscle use. Lungs clear and diminished to auscultation. Breath sounds equal bilaterally. GASTROINTESTINAL: Abdomen soft, nontender, nondistended. + BS. Midline abdominal bradford well approximated, no erythema noted. MUSCULOSKELETAL: Extremities without cyanosis, or edema. LUE contracture noted. + perfused NEUROLOGICAL: Awake and alert. Normal speech. - Urinary Catheter Management Indwelling Urethral Catheter Cath placed during this visit: yes Reason for continuing: Hourly intake/output Insertion date: 12/09/17 Insertion time: 14:00 Assessment and Plan - Plan [place]: Knocked out of her wheelchair and hit the floor. No LOC. INJURIES: LEFT adrenal gland contusion Grade III splenic laceration PMHx: COPD, CHF, CVA w/ left hemiparesis. tobacco use. Procedures: 12/03: Angiogram, embolization of the lower branches of splenic artery w/ coils and Gelfoam 12/09: Transferred back to ICU and intubated for resp distress 12/09: Exploratory laparotomy, splenectomy and abdominal washout. 12/11: Extubated LEFT adrenal gland contusion, Grade III splenic laceration Supportive care 12/03: Angiogram, embolization of the lower branches of splenic artery w/ coils and Gelfoam 12/07: Repeat CT abdomen pelvis done without IV contrast due to iodine allergy. CT abdomen pelvis shows stable free fluid in the abdomen 12/09: Transferred back to ICU and intubated for resp distress 12/09: RIJ TLC placement 12/09: Exploratory laparotomy, splenectomy and abdominal washout. 12/11: Extubated Hgb 11.7 today after 2 PRBCs yesterday Tele Pain control Bowel regimen OOB- PT/OT ordered Lovenox We will need splenectomy vaccines before discharge Plan of care discussed with patient and RN at bedside. Collaborating Trauma surgeon agrees with plan. Case management consulted to assist with discharge planning. Will need SNF placement at [place]. <David Winn S - Last Filed: 12/18/17 20:23> Physical Exam Vital signs: Vital Signs 12/18/17 00:00 12/18/17 04:00 12/18/17 08:00 Temperature 98.1 F 99 F 98.2 F Pulse Rate 82 82 84 Respiratory Rate 18 18 20 Blood Pressure 145/67 H 152/70 H 137/61 Pulse Oximetry 92 L 92 L 93 L 12/18/17 10:00 12/18/17 12:00 12/18/17 16:00 Temperature 97.8 F 97.7 F Pulse Rate 84 72 74 Respiratory Rate 20 20 Blood Pressure 131/60 126/60 Pulse Oximetry 96 91 L Intake & Output 12/18/17 12/18/17 12/19/17 06:59 18:59 06:59 Intake Total 240 / 240 800 / 800 Output Total 420 / 420 Balance 220 / 220 380 / 380 Intake: Oral 240 / 240 800 / 800 Output: Urine 400 / 400 Chest Tube Drainage 20 / 20 20 / 20 Left 20 / 20 20 / 20 Other: # Voids 1 2 Date of Last Bowel Movement 12/17/17 - Urinary Catheter Management Indwelling Urethral Catheter Cath placed during this visit: no Assessment and Plan - Plan patient seen at bedside anemia of blood loss s/p tranfusion and or await recheck hh wound clean grady has been removed pt improving d/c planning - Attending Attestation The exam, history, and the medical decision-making described in the above note were completed with the assistance of the mid-level provider. I reviewed and agree with the findings presented. I attest that I had a [id number] encounter with the patient on the same day, and personally performed and documented my assessment and findings in the medical record.
[2017-12-13] MEDS: Temazepam 15 MG Capsule PO SCH (20:36)
[2017-12-14] MEDS: hydrALAZINE 25 MG Tablet PO SCH ×3 (05:56→18:09)
[2017-12-14 07:05] LABS: Baso % (Auto) 0.3 % (0.0-2.0); Eos # (Auto) 0.5 th/mm3 (0.0-0.4); Eos % (Auto) 4.6 % (0.0-4.0); Hematocrit 30.9 % (35.0-46.0); Hemoglobin 10.2 gm/dL (11.6-15.3); Lymph # (Auto) 1.8 th/mm3 (1.0-4.8); Lymph % (Auto) 15.6 % (9.0-44.0); Mean Corpuscular HGB Conc 32.9 % (32.0-36.0); Mean Corpuscular Hemoglobin 27.6 pg (27.0-34.0); Mean Platelet Volume 8.6 fL (7.0-11.0); Mono # (Auto) 1.5 th/mm3 (0.0-0.9); Mono % (Auto) 13.2 % (0.0-8.0); Neut # (Auto) 7.7 th/mm3 (1.8-7.7); Neut % (Auto) 66.3 % (16.0-70.0); Platelet Count 318 th/mm3 (150-450); Red Blood Count 3.69 mil/mm3 (4.00-5.30); Red Cell Distribution Width 16.3 % (11.6-17.2); White Blood Count 11.6 th/mm3 (4.0-11.0)
[2017-12-14 07:25] LABS: Anion Gap 7 meq/L (5-15); Blood Urea Nitrogen 14 mg/dL (7-18); Calcium 8.3 mg/dL (8.5-10.1); Carbon Dioxide 27.5 meq/L (21.0-32.0); Chloride 106 meq/L (98-107); Glomerular Filtration Rate Greater Than 89 mL/min (>89); Glucose,Random 64 mg/dL (74-106); Potassium 3.5 meq/L (3.5-5.1); Sodium 140 meq/L (136-145)
[2017-12-14] MEDS: Famotidine 20 MG Tablet PO SCH ×2 (08:05→21:30)
[2017-12-14] MEDS: Enoxaparin Inj 40 MG/0.4 ML Syringe SQ SCH (08:05)
[2017-12-14] MEDS: ALPRAZolam 0.5 MG Tablet PO SCH ×3 (08:05→18:09)
[2017-12-14] MEDS: Metoprolol Tartrate 25 MG Tablet PO SCH ×2 (08:05→21:29)
[2017-12-14] MEDS: Senna/Docusate Sodium 8.6/50 MG Tablet PO SCH ×2 (08:06→21:30)
[2017-12-14] MEDS: Methadone Liq 10 MG/10 ML UDC PO SCH (11:36)
--- NOTE | 2017-12-14 11:54 | P.PN ---
Subjective Interval history: Trauma PTT: 11 Patient sitting up on the side of the bed. No distress noted. Patient requesting methadone to be changed to pills. Patient states she lives with her son and [id number]. Patient jokes she was ready to be discharged that day she came in. Physical Exam Vital signs: Vital Signs 12/13/17 12:00 12/13/17 20:47 12/14/17 00:29 Temperature 98.0 F 97.9 F 98.2 F Pulse Rate 68 72 77 Respiratory Rate 17 17 18 Blood Pressure 158/72 H 120/59 L 156/72 H Pulse Oximetry 93 L 93 L 96 12/14/17 04:57 12/14/17 08:00 Temperature 98.0 F 97.8 F Pulse Rate 70 80 Respiratory Rate 16 18 Blood Pressure 130/61 141/63 H Pulse Oximetry 96 91 L Intake & Output 12/13/17 12/14/17 12/14/17 18:59 06:59 18:59 Intake Total 480 / 480 Balance 480 / 480 Weight 68 kg Intake: Oral 480 / 480 Other: # Voids 2 Date of Last Bowel Movement 12/09/17 Narrative: GENERAL: This is a 62-year-old female who looks older than her stated age. No distress noted. SKIN: Warm and dry. HEAD: Atraumatic. Normocephalic. EYES: PERRLA ENT: No nasal bleeding or discharge. Mucous membranes pink and moist. NECK: Trachea midline. No JVD. CARDIOVASCULAR: Regular rate and rhythm. RESPIRATORY: No accessory muscle use. Lungs are clear to auscultation. Breath sounds equal bilaterally. No distress or dyspnea. GASTROINTESTINAL: BS + x 4 quads. Abdomen soft, non-tender, nondistended. MUSCULOSKELETAL: Extremities without cyanosis, or edema. + peripheral pulses x 4 extremities. Warm with good capillary refill. Left upper extremity with contracture noted. PEREIRA. NEUROLOGICAL: Awake and alert. Normal speech and pattern. - Urinary Catheter Management Indwelling Urethral Catheter Cath placed during this visit: yes Reason for continuing: Hourly intake/output Insertion date: 12/09/17 Insertion time: 14:00 Results - Labs CBC & Chem 7: 12/14/17 06:10 12/14/17 06:10 Laboratory Results - last 24 hr 12/14/17 12/14/17 06:10 06:10 WBC 11.6 H RBC 3.69 L Hgb 10.2 L Hct 30.9 L MCV 84.0 MCH 27.6 MCHC 32.9 RDW 16.3 Plt Count 318 MPV 8.6 Neut % (Auto) 66.3 Lymph % (Auto) 15.6 Mccone % (Auto) 13.2 H Eos % (Auto) 4.6 H Baso % (Auto) 0.3 Neut # (Auto) 7.7 Lymph # (Auto) 1.8 Mccone # (Auto) 1.5 H Eos # (Auto) 0.5 H Baso # (Auto) 0.0 WBC Differential . Differential Comment Auto diff final Sodium 140 Potassium 3.5 Chloride 106 Carbon Dioxide 27.5 Anion Gap 7 BUN 14 Creatinine 0.55 Estimated GFR Greater than 89 Random Glucose 64 L Calcium 8.3 L Assessment and Plan - Plan [place]: This is a 62 year old female who sustained a fall. She states she was at the methadone where she was knocked out of her wheelchair and she fell. Injuries: Left adrenal gland contusion Splenic laceration with hemorrhage Left old rib fractures (multiple) PMHx: PMHx: COPD, CHF, CVA w/ left hemiparesis. tobacco use. Procedures: 12/03: Angiogram, embolization of the lower branches of splenic artery w/ coils and gelfoam 12/09: Transferred back to ICU and intubated for resp distress 12/09: Exploratory laparotomy, splenectomy and abdominal washout. 12/11: Extubated Consults: Case management Diet: Regular diet. Tolerating po diet. Encourage good po intake with each meal. Pulmonary: Encourage good pulmonary toileting. IS at bedside and pt encouraged to use. Rationale for use explained to patient, and verbalized understanding. PAIN Management: Methadone 170mg QD. ATIVAN 0.5 mg TID (home meds) Activity: OOB. PT and OT ordered. GI prophylaxis: Pepcid 20 mg BID po. Bowel regimen: Bouchra-Colace. MOM. Lactulose PRN. Senna PRN. Bisacodyl PRN. LBM: 12/10 DVT prophylaxis: Mechanical VTE with SCDs. Chemical management with Lovenox 40 mg daily. DC Planning: Case management consulted for assistance with final discharge disposition. Plan for discharge to rehab/SNF if possible in 1-2 days. Emotional support provided to patient at bedside and plan of care discussed. Discussed with RN at bedside during rounds. Discussed pt condition and plan of care with collaborating trauma surgeon. Patient is hemodynamically stable and managed on the med/surg floor. The trauma team will round each day, and evaluate plan of care on a daily basis. LEFT adrenal gland contusion Grade III splenic laceration Supportive care 12/03: Angiogram, embolization of the lower branches of splenic artery w/ coils and Gelfoam 12/09: Exploratory laparotomy, splenectomy and abdominal washout. 12/07: Repeat CT abdomen pelvis done without IV contrast due to iodine allergy. CT abdomen pelvis shows stable free fluid in the abdomen Trend H&H H&H = 10.2 / 30.9 Does not meet transfusion triggers at this time Monitor s/s of bleeding Pain management Bowel regimen Lovenox for DVT prophylaxis Will need post-splenectomy vaccines prior to discharge Respiratory failure post trauma 12/09: Transferred back to ICU and intubated for resp distress 12/09: Exploratory laparotomy, splenectomy and abdominal washout. 12/11: Extubated Stable on room air Encourage pulmonary toileting Encourage out of bed PT and OT ordered Chest x-ray as needed HTN Vitals every 4 hours and PRN Clonidine patch 0.2mg Lopressor 25mg BID Hydralazine 25mg q6h Enalaprilat 1.25mg q6h PRN
[2017-12-14] MEDS ORDERED: Methadone 10 MG Tablet PO ONE (15:15)
[2017-12-14] MEDS: Temazepam 15 MG Capsule PO SCH (22:44)
[2017-12-15] MEDS: hydrALAZINE 25 MG Tablet PO SCH ×4 (00:55→17:34)
[2017-12-15 06:00] LABS: Baso % (Auto) 0.3 % (0.0-2.0); Eos # (Auto) 0.4 th/mm3 (0.0-0.4); Eos % (Auto) 3.2 % (0.0-4.0); Hematocrit 33.1 % (35.0-46.0); Lymph # (Auto) 1.6 th/mm3 (1.0-4.8); Lymph % (Auto) 12.5 % (9.0-44.0); Mean Corpuscular HGB Conc 33.3 % (32.0-36.0); Mean Corpuscular Volume 84.1 fL (80.0-100.0); Mean Platelet Volume 8.6 fL (7.0-11.0); Mono # (Auto) 1.5 th/mm3 (0.0-0.9); Mono % (Auto) 11.9 % (0.0-8.0); Neut # (Auto) 9.3 th/mm3 (1.8-7.7); Neut % (Auto) 72.1 % (16.0-70.0); Platelet Count 357 th/mm3 (150-450); Red Blood Count 3.93 mil/mm3 (4.00-5.30)
[2017-12-15 06:27] LABS: Anion Gap 9 meq/L (5-15); Blood Urea Nitrogen 11 mg/dL (7-18); Calcium 8.3 mg/dL (8.5-10.1); Carbon Dioxide 26.2 meq/L (21.0-32.0); Chloride 103 meq/L (98-107); Glomerular Filtration Rate Greater Than 89 mL/min (>89); Glucose,Random 58 mg/dL (74-106); Potassium 3.4 meq/L (3.5-5.1); Sodium 138 meq/L (136-145)
[2017-12-15] MEDS: Methadone 10 MG Tablet PO SCH (08:24)
[2017-12-15] MEDS: Enoxaparin Inj 40 MG/0.4 ML Syringe SQ SCH (08:25)
[2017-12-15] MEDS: Metoprolol Tartrate 25 MG Tablet PO SCH ×2 (08:25→20:29)
[2017-12-15] MEDS: ALPRAZolam 0.5 MG Tablet PO SCH ×3 (08:26→17:34)
[2017-12-15] MEDS: Famotidine 20 MG Tablet PO SCH ×2 (08:26→20:29)
--- NOTE | 2017-12-15 09:25 | P.PN ---
Subjective Interval history: Trauma PTD: 12 Pt lying in bed. No distress noted. Pt had an episode of vomiting last night. No complaints offered. Physical Exam Vital signs: Vital Signs 12/14/17 12:00 12/14/17 16:00 12/14/17 20:00 Temperature 97.3 F L 97.8 F 98.1 F Pulse Rate 63 76 85 Respiratory Rate 16 16 17 Blood Pressure 117/69 161/70 H 184/88 H Pulse Oximetry 97 96 95 12/15/17 00:00 12/15/17 00:53 12/15/17 04:00 Temperature 97.6 F 97.8 F Pulse Rate 78 81 78 Respiratory Rate 17 Blood Pressure 183/77 H 156/74 H Pulse Oximetry 92 L 94 L 12/15/17 08:00 12/15/17 08:16 Temperature 98.6 F Pulse Rate 90 Respiratory Rate 18 Blood Pressure 155/68 H Pulse Oximetry 92 L 93 L Intake & Output 12/14/17 12/15/17 12/15/17 18:59 06:59 18:59 Intake Total 800 / 800 480 / 480 Output Total 300 / 300 Balance 800 / 800 180 / 180 Intake: Oral 800 / 800 480 / 480 Output: Urine 300 / 300 Other: # Voids 5 # Incontinent Voids 3 Date of Last Bowel Movement 12/09/17 # Incontinent Bowel Movements 1 # Em[place] 1 Narrative: GENERAL: This is a 62-year-old female who looks older than her stated age. No distress noted. SKIN: Warm and dry. Normal color. HEAD: Atraumatic. Normocephalic. EYES: PERRLA ENT: No nasal bleeding or discharge. Mucous membranes pink and moist. NECK: Trachea midline. No JVD. CARDIOVASCULAR: Regular rate and rhythm. RESPIRATORY: O2 NC at 4L humidified. RR even and unlabored. No accessory muscle use. Lungs are clear to auscultation. Breath sounds equal bilaterally. No distress or dyspnea. No SOB. NO increased WOB. GASTROINTESTINAL: BS + x 4 quads. Abdomen soft, non-tender, nondistended. MUSCULOSKELETAL: Extremities without cyanosis, or edema. + peripheral pulses x 4 extremities. Warm with good capillary refill. Left upper extremity with contracture noted. PEREIRA. LEFT CKS in place. NEUROLOGICAL: Awake and alert. Normal speech and pattern. - Urinary Catheter Management Indwelling Urethral Catheter Cath placed during this visit: yes Reason for continuing: Hourly intake/output Insertion date: 12/09/17 Insertion time: 14:00 Results - Labs CBC & Chem 7: 12/19/17 04:32 12/19/17 04:32 Laboratory Results - last 24 hr 12/15/17 12/15/17 04:49 04:49 WBC 13.0 H RBC 3.93 L Hgb 11.0 L Hct 33.1 L MCV 84.1 MCH 28.0 MCHC 33.3 RDW 16.0 Plt Count 357 MPV 8.6 Neut % (Auto) 72.1 H Lymph % (Auto) 12.5 Charles % (Auto) 11.9 H Eos % (Auto) 3.2 Baso % (Auto) 0.3 Neut # (Auto) 9.3 H Lymph # (Auto) 1.6 Charles # (Auto) 1.5 H Eos # (Auto) 0.4 Baso # (Auto) 0.0 WBC Differential . Differential Comment Auto diff final Sodium 138 Potassium 3.4 L Chloride 103 Carbon Dioxide 26.2 Anion Gap 9 BUN 11 Creatinine 0.52 Estimated GFR Greater than 89 Random Glucose 58 L Calcium 8.3 L Assessment and Plan - Plan [place]: This is a 62 year old female who sustained a fall. She states she was at the methadone where she was knocked out of her wheelchair and she fell. Injuries: Left adrenal gland contusion Splenic laceration with hemorrhage Left old rib fractures (multiple) PMHx: PMHx: COPD, CHF, CVA w/ left hemiparesis. tobacco use. Procedures: 12/03: Angiogram, embolization of the lower branches of splenic artery w/ coils and gelfoam 12/09: Transferred back to ICU and intubated for resp distress 12/09: Exploratory laparotomy, splenectomy and abdominal washout. 12/11: Extubated Consults: Case management Diet: Regular diet. Tolerating po diet. Encourage good po intake with each meal. Pulmonary: Encourage good pulmonary toileting. IS at bedside and pt encouraged to use. Rationale for use explained to patient, and verbalized understanding. Sats = 84% on 4L. Lungs essentially clear. No wheezing. No distress or dyspnea. NO increased WOB. RR even and unlabored. Pt is a smoker and does have a history of COPD. 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 Obtain CXR for eval. PAIN Management: Methadone 170mg QD. ATIVAN 0.5 mg TID (home meds) Activity: OOB. PT and OT ordered. GI prophylaxis: Pepcid 20 mg BID po. Bowel regimen: Bouchra-Colace. MOM. Lactulose PRN. Senna PRN. Bisacodyl PRN. LBM: 12/15 DVT prophylaxis: Mechanical VTE with SCDs. Chemical management with Lovenox 40 mg daily. DC Planning: Case management consulted for assistance with final discharge disposition. Plan for discharge to rehab/SNF if possible in 1-2 days. Emotional support provided to patient at bedside and plan of care discussed. Discussed with RN at bedside during rounds. Discussed pt condition and plan of care with collaborating trauma surgeon. Patient is hemodynamically stable and managed on the med/surg floor. The trauma team will round each day, and evaluate plan of care on a daily basis. LEFT adrenal gland contusion Grade III splenic laceration Supportive care 12/03: Angiogram, embolization of the lower branches of splenic artery w/ coils and Gelfoam 12/09: Exploratory laparotomy, splenectomy and abdominal washout. 12/07: Repeat CT abdomen pelvis done without IV contrast due to iodine allergy. CT abdomen pelvis shows stable free fluid in the abdomen Trend H&H H&H = .1 Does not meet transfusion triggers at this time Monitor s/s of bleeding Pain management Bowel regimen Lovenox for DVT prophylaxis Will need post-splenectomy vaccines prior to discharge Respiratory failure post trauma Smoker COPD 12/09: Transferred back to ICU and intubated for resp distress 12/09: Exploratory laparotomy, splenectomy and abdominal washout. 12/11: Extubated O2 NC at 4 L - Sats = 84-85%. No distress or dyspnea. No increased WOB. RR even and unlabored. Obtain CXR to evaluate for poss infiltrates Encourage pulmonary toileting Encourage out of bed PT and OT ordered HTN Vitals every 4 hours and PRN Clonidine patch 0.2mg Lopressor 25mg BID Hydralazine 25mg q6h Enalaprilat 1.25mg q6h PRN patient seen by attending doing better no acute issues vaccines at d/c - Attending Attestation The exam, history, and the medical decision-making described in the above note were completed with the assistance of the mid-level provider. I reviewed and agree with the findings presented. I attest that I had a [id number] encounter with the patient on the same day, and personally performed and documented my assessment and findings in the medical record.
--- NOTE | 2017-12-15 09:47 | XR ---
EXAM DATE: 12/15/2017 9:42 AM EDT AGE/SEX: 62 years / Female INDICATIONS: Evaluate for trauma,fell CLINICAL DATA: This is the patient's subsequent encounter. Patient reports that signs and symptoms h ave been present for 1 week and indicates a pain score of 0/10. MEDICAL/SURGICAL HISTORY: . Chronic obstructive pulmonary disease. Congestive heart failure. He miparesis. Stroke. Methadone use. Splenic laceration None. [place] [facility] [place]. . FINDINGS: Left lung base opacity is present may be due to a combination of consolidation and or pleural effusio n. Extensive perivascular pulmonary edema has developed not present on the prior examination. CONCLUSION: 1. Left lung base opacity is present may be due to a combination of consolidation and or pleural eff usion. 2. Significant pulmonary edema bilaterally. Electronically signed by: Alina Mendoza MD 12/15/2017 9:46 AM EDT
[2017-12-15] MEDS: Senna/Docusate Sodium 8.6/50 MG Tablet PO SCH ×2 (11:29→20:30)
[2017-12-15] MEDS: Temazepam 15 MG Capsule PO SCH (20:29)
[2017-12-16] MEDS: hydrALAZINE 25 MG Tablet PO SCH ×4 (00:24→17:32)
[2017-12-16 04:00] LABS: Baso # (Auto) 0.1 th/mm3 (0.0-0.2); Baso % (Auto) 0.5 % (0.0-2.0); Eos # (Auto) 0.4 th/mm3 (0.0-0.4); Eos % (Auto) 3.1 % (0.0-4.0); Hemoglobin 9.9 gm/dL (11.6-15.3); Lymph # (Auto) 1.2 th/mm3 (1.0-4.8); Lymph % (Auto) 9.8 % (9.0-44.0); Mean Corpuscular HGB Conc 33.1 % (32.0-36.0); Mean Corpuscular Volume 84.7 fL (80.0-100.0); Mean Platelet Volume 8.1 fL (7.0-11.0); Mono # (Auto) 1.1 th/mm3 (0.0-0.9); Mono % (Auto) 8.7 % (0.0-8.0); Neut # (Auto) 9.9 th/mm3 (1.8-7.7); Neut % (Auto) 77.9 % (16.0-70.0); Platelet Count 363 th/mm3 (150-450); Red Blood Count 3.55 mil/mm3 (4.00-5.30); Red Cell Distribution Width 16.3 % (11.6-17.2); White Blood Count 12.7 th/mm3 (4.0-11.0)
[2017-12-16 04:23] LABS: Alanine Aminotransferase 62 U/L (10-53); Albumin 2.4 g/dL (3.4-5.0); Anion Gap 6 meq/L (5-15); Aspartate Aminotransferase 26 U/L (15-37); Blood Urea Nitrogen 10 mg/dL (7-18); Calcium 8.3 mg/dL (8.5-10.1); Carbon Dioxide 30.8 meq/L (21.0-32.0); Chloride 102 meq/L (98-107); Glomerular Filtration Rate Greater Than 89 mL/min (>89); Glucose,Random 74 mg/dL (74-106); Potassium 3.4 meq/L (3.5-5.1); Sodium 139 meq/L (136-145)
[2017-12-16 04:25] LABS: Alkaline Phosphatase 78 U/L (45-117)
--- NOTE | 2017-12-16 06:40 | XR ---
EXAM DATE: 12/16/2017 6:30 AM EDT AGE/SEX: 62 years / Female INDICATIONS: Cough, short of breath, recent fall CLINICAL DATA: This is the patient's subsequent encounter. Patient reports that signs and symptoms h ave been present for 1 week and indicates a pain score of 0/10. MEDICAL/SURGICAL HISTORY: . pulmonary edema None. [place] [facility] [place] . FINDINGS: A single AP portable erect view of the chest was obtained and again demonstrates dense opacity in the left hemithorax. There is increased in the apical region appears to represent dense consolidation or loculated fluid. The right lung is clear. There are calcified right paratracheal perihilar lymph nod es. The heart size remains prominent. The bony thorax is intact with degenerative changes in both stefanie ulders. CONCLUSION: Increased opacity in the left upper lobe. The right lung remains clear. Electronically signed by: Lauro Wan MD 12/16/2017 6:39 AM EDT
[2017-12-16] MEDS ORDERED: Potassium Chloride 25 MEQ Effervescent Tablet PO ONE (07:57)
[2017-12-16] MEDS: Enoxaparin Inj 40 MG/0.4 ML Syringe SQ SCH (09:24)
[2017-12-16] MEDS: Metoprolol Tartrate 25 MG Tablet PO SCH ×2 (09:24→21:01)
[2017-12-16] MEDS: Famotidine 20 MG Tablet PO SCH ×2 (09:24→21:01)
[2017-12-16] MEDS: Senna/Docusate Sodium 8.6/50 MG Tablet PO SCH ×2 (09:25→20:57)
[2017-12-16] MEDS: ALPRAZolam 0.5 MG Tablet PO SCH ×3 (09:25→17:32)
[2017-12-16] MEDS: Methadone 10 MG Tablet PO SCH (09:25)
--- NOTE | 2017-12-16 11:17 | P.PN ---
Subjective Interval history: Trauma PTD: 13 Patient lying in bed. No distress noted. Patient states, "I am passing more than gas." "So I am going to have that tube in me forever?" "Do I have to go back to the ICU for that?" Physical Exam Vital signs: Vital Signs 12/15/17 12:00 12/15/17 16:00 12/15/17 20:00 Temperature 98.1 F 98.0 F 97.9 F Pulse Rate 76 83 77 Respiratory Rate 18 18 17 Blood Pressure 126/58 L 129/58 L 121/58 L Pulse Oximetry 93 L 92 L 95 12/16/17 00:00 12/16/17 04:00 12/16/17 06:00 Temperature 98.4 F 98.1 F Pulse Rate 76 72 78 Respiratory Rate 17 17 Blood Pressure 116/57 L 119/55 L Pulse Oximetry 94 L 94 L 12/16/17 09:25 Temperature Pulse Rate 79 Respiratory Rate Blood Pressure Pulse Oximetry 94 L Intake & Output 12/15/17 12/16/17 12/16/17 18:59 06:59 18:59 Intake Total 800 / 800 240 / 240 Output Total 400 / 400 Balance 400 / 400 240 / 240 Intake: Oral 800 / 800 240 / 240 Other 0 / 0 Output: Urine 400 / 400 Other: # Incontinent Voids 1 Date of Last Bowel Movement 12/14/17 Narrative: GENERAL: This is a 62-year-old female who looks older than her stated age. No distress noted. SKIN: Warm and dry. Normal color. HEAD: Atraumatic. Normocephalic. EYES: PERRLA ENT: No nasal bleeding or discharge. Mucous membranes pink and moist. NECK: Trachea midline. No JVD. CARDIOVASCULAR: Regular rate and rhythm. RESPIRATORY: O2 NC at 6L humidified. RR even and unlabored. No accessory muscle use. Lungs are clear to auscultation on right, however decreased on left. Thick wet cough. Breath sounds equal bilaterally. No distress or dyspnea. No SOB. NO increased WOB. GASTROINTESTINAL: BS + x 4 quads. Abdomen soft, non-tender, nondistended. MUSCULOSKELETAL: Extremities without cyanosis, or edema. + peripheral pulses x 4 extremities. Warm with good capillary refill. Left upper extremity with contracture noted. PEREIRA. LEFT CKS in place. NEUROLOGICAL: Awake and alert. Normal speech and pattern. - Urinary Catheter Management Indwelling Urethral Catheter Cath placed during this visit: yes Reason for continuing: Hourly intake/output Insertion date: 12/09/17 Insertion time: 14:00 Results - Labs CBC & Chem 7: 12/19/17 04:32 12/19/17 04:32 Laboratory Results - last 24 hr 12/16/17 12/16/17 03:46 03:46 WBC 12.7 H RBC 3.55 L Hgb 9.9 L Hct 30.0 L MCV 84.7 MCH 28.0 MCHC 33.1 RDW 16.3 Plt Count 363 MPV 8.1 Neut % (Auto) 77.9 H Lymph % (Auto) 9.8 Winkler % (Auto) 8.7 H Eos % (Auto) 3.1 Baso % (Auto) 0.5 Neut # (Auto) 9.9 H Lymph # (Auto) 1.2 Winkler # (Auto) 1.1 H Eos # (Auto) 0.4 Baso # (Auto) 0.1 WBC Differential . Differential Comment Auto diff final Sodium 139 Potassium 3.4 L Chloride 102 Carbon Dioxide 30.8 Anion Gap 6 BUN 10 Creatinine 0.51 Estimated GFR Greater than 89 Random Glucose 74 Calcium 8.3 L Total Bilirubin 0.7 AST 26 ALT 62 H Alkaline Phosphatase 78 Total Protein 6.0 L D Albumin 2.4 L - Imaging Impressions Chest X-Ray 12/16/17 06:00 CONCLUSION: Increased opacity in the left upper lobe. The right lung remains clear. Assessment and Plan - Plan [place]: This is a 62 year old female who sustained a fall. She states she was at the methadone where she was knocked out of her wheelchair and she fell. Injuries: Left adrenal gland contusion Splenic laceration with hemorrhage Left old rib fractures (multiple) PMHx: PMHx: COPD, CHF, CVA w/ left hemiparesis. tobacco use. Procedures: 12/03: Angiogram, embolization of the lower branches of splenic artery w/ coils and gelfoam 12/09: Transferred back to ICU and intubated for resp distress 12/09: Exploratory laparotomy, splenectomy and abdominal washout. 12/11: Extubated Consults: Case management Diet: Regular diet. Tolerating po diet. Encourage good po intake with each meal. Pulmonary: Encourage good pulmonary toileting. IS at bedside and pt encouraged to use. Rationale for use explained to patient, and verbalized understanding. CXR shows LEFT hemithorax opacity w/ possible loculated fluid. Plan for CT chest now with LEFT CT guided CT placement. PAIN Management: Methadone 170mg QD. ATIVAN 0.5 mg TID (home meds) Activity: OOB. PT and OT ordered. GI prophylaxis: Pepcid 20 mg BID po. Bowel regimen: Bouchra-Colace. MOM. Lactulose PRN. Senna PRN. Bisacodyl PRN. LBM: 12/15 DVT prophylaxis: Mechanical VTE with SCDs. Chemical management with Lovenox 40 mg daily. DC Planning: Case management consulted for assistance with final discharge disposition. Plan for discharge to rehab/SNF upon DC. Emotional support provided to patient at bedside and plan of care discussed. Discussed with RN at bedside during rounds. Discussed pt condition and plan of care with collaborating trauma surgeon. Patient is hemodynamically stable and managed on the med/surg floor. The trauma team will round each day, and evaluate plan of care on a daily basis. LEFT adrenal gland contusion Grade III splenic laceration Supportive care 12/03: Angiogram, embolization of the lower branches of splenic artery w/ coils and Gelfoam 12/09: Exploratory laparotomy, splenectomy and abdominal washout. 12/07: Repeat CT abdomen pelvis done without IV contrast due to iodine allergy. CT abdomen pelvis shows stable free fluid in the abdomen Trend H&H H&H = 9. Does not meet transfusion triggers at this time Monitor s/s of bleeding Pain management Bowel regimen Lovenox for DVT prophylaxis Will need post-splenectomy vaccines prior to discharge Respiratory failure post trauma Smoker COPD 12/09: Transferred back to ICU and intubated for resp distress 12/09: Exploratory laparotomy, splenectomy and abdominal washout. 12/11: Extubated No distress or dyspnea. No increased WOB. RR even and unlabored. DEscresed lung counds to LEFT lung frank with thick wet cough CXR shows LEFT hemithorax opacity w/ possible loculated fluid. Plan for CT chest now with LEFT CT guided CT placement. Encourage pulmonary toileting Encourage out of bed PT and OT ordered HTN Vitals every 4 hours and PRN Clonidine patch 0.2mg Lopressor 25mg BID Hydralazine 25mg q6h Enalaprilat 1.25mg q6h PRN - Attending Attestation The exam, history, and the medical decision-making described in the above note were completed with the assistance of the mid-level provider. I reviewed and agree with the findings presented. I attest that I had a [id number] encounter with the patient on the same day, and personally performed and documented my assessment and findings in the medical record.
--- NOTE | 2017-12-16 14:08 | CT ---
EXAM DATE: 12/16/2017 1:45 PM EDT AGE/SEX: 62 years / Female INDICATIONS: Shortness of breath, Chest pain. CLINICAL DATA: This is the patient's initial encounter. Patient reports that signs and symptoms have been present for 1 day and indicates a pain score of 2/10. MEDICAL/SURGICAL HISTORY: . Splenic laceration. None. RADIATION DOSE: 9.62 CTDI (mGy) COMPARISON: [facility], CTA PULMONARY W CONTRAST W 3D, 12/09/2017. . TECHNIQUE: Multiple contiguous axial images were obtained through the chest without contrast. Image s were obtained in suspended respiration using multiple row detector helical technique. Using automa april exposure control and adjustment of the mA and/or kV according to patient size, radiation dose was kept as low as reasonably achievable to obtain optimal diagnostic quality images. DICOM format imag e data is available electronically for review and comparison. FINDINGS: Lungs: Improving aeration is identified in the left lower lobe however new airspace disease has deve loped within the left upper lobe and right lower lobe. Mediastinum: Stable again demonstrating dense calcified lymph nodes but no evidence of noncalcified mass or fluid accumulations. Pleurae: Increasing pleural effusion is noted in the left lung. There is a moderate-sized effusion a t this time. Minimal effusion has developed in the right base. Axillae: Unremarkable. Bony Structures: Unremarkable. Miscellaneous: Post surgical changes are identified in the left upper quadrant of the abdomen follow ing splenectomy. CONCLUSION: 1. Increasing left pleural effusion and new small right pleural effusion. 2. Increasing airspace disease left upper lobe and right lower lobe. 3. Postsurgical changes left upper quadrant of the abdomen following splenectomy. Electronically signed by: Mahesh Bowden MD 12/16/2017 2:06 PM EDT
--- NOTE | 2017-12-16 14:31 | P.RAD ---
Radiology Note Request for chest tube placement for increasing left pleural effusion obtained. Pt scheduled for 12/17. Plan: Hold Lovenox and NPO after MN.
[2017-12-16] MEDS: Temazepam 15 MG Capsule PO SCH (21:01)
[2017-12-17] MEDS: hydrALAZINE 25 MG Tablet PO SCH ×4 (00:16→18:24)
[2017-12-17 04:39] LABS: Anion Gap 6 meq/L (5-15); Blood Urea Nitrogen 9 mg/dL (7-18); Carbon Dioxide 29.8 meq/L (21.0-32.0); Chloride 103 meq/L (98-107); Glomerular Filtration Rate Greater Than 89 mL/min (>89); Glucose,Random 69 mg/dL (74-106); Potassium 3.3 meq/L (3.5-5.1); Sodium 139 meq/L (136-145)
[2017-12-17 04:40] LABS: Baso % (Auto) 0.4 % (0.0-2.0); Eos # (Auto) 0.5 th/mm3 (0.0-0.4); Hemoglobin 9.5 gm/dL (11.6-15.3); Lymph # (Auto) 1.2 th/mm3 (1.0-4.8); Lymph % (Auto) 17.4 % (9.0-44.0); Mean Corpuscular HGB Conc 32.8 % (32.0-36.0); Mean Corpuscular Hemoglobin 27.9 pg (27.0-34.0); Mean Platelet Volume 8.6 fL (7.0-11.0); Mono # (Auto) 1.1 th/mm3 (0.0-0.9); Mono % (Auto) 15.9 % (0.0-8.0); Neut # (Auto) 3.9 th/mm3 (1.8-7.7); Neut % (Auto) 59.3 % (16.0-70.0); Platelet Count 379 th/mm3 (150-450); Red Blood Count 3.41 mil/mm3 (4.00-5.30); Red Cell Distribution Width 16.1 % (11.6-17.2); White Blood Count 6.6 th/mm3 (4.0-11.0)
--- NOTE | 2017-12-17 06:27 | XR ---
EXAM DATE: 12/17/2017 5:59 AM EDT AGE/SEX: 62 years / Female INDICATIONS: Short of breath, cough, recent fall CLINICAL DATA: This is the patient's subsequent encounter. Patient reports that signs and symptoms h ave been present for 3 days and indicates a pain score of 0/10. MEDICAL/SURGICAL HISTORY: None. None. COMPARISON: [facility] – [place], [place] CHEST W/O CONTRAST, 12/16/2017. . FINDINGS: A single AP erect view of the chest was obtained and again demonstrates diffuse opacity throughout th e left lung. There is mild patchy opacity at the right lung base. There are multiple calcified right hilar and paratracheal lymph nodes. The heart size remains prominent. The left hemidiaphragm is obscu red and there is apparent blunting of the costophrenic angle. There are multiple left rib fractures a s well as a right clavicular fracture. CONCLUSION: 1. Left hemithorax remains diffusely opacified which appears to represent infiltrate and/or effusion . 2. Mild hazy opacity at the right lung base. 3. Multiple left rib fractures and right clavicular fracture which may be chronic. 4. Multiple calcified right hilar paratracheal lymph nodes again noted. Electronically signed by: Lauro Wan MD 12/17/2017 6:26 AM EDT
[2017-12-17] MEDS: ALPRAZolam 0.5 MG Tablet PO SCH ×3 (08:24→18:24)
[2017-12-17] MEDS: Famotidine 20 MG Tablet PO SCH ×2 (08:24→21:43)
[2017-12-17] MEDS: Metoprolol Tartrate 25 MG Tablet PO SCH ×2 (08:24→21:43)
[2017-12-17] MEDS: Methadone 10 MG Tablet PO SCH (08:24)
[2017-12-17] MEDS: Senna/Docusate Sodium 8.6/50 MG Tablet PO SCH ×2 (08:28→21:46)
[2017-12-17] MEDS ORDERED: fentaNYL Citrate Inj 100 MCG/2 ML Ampul ONE ×2 (09:27→10:12)
--- NOTE | 2017-12-17 10:26 | P.RAD ---
Post CT Procedure Prog Note - Procedure Information Procedure Date: 12/17/17 Supervising Radiologist: Cholo Rizo MD Estimated blood loss (mL): 0 Anesthesia: Conscious Sedation - Plan of Activity Patient to Unit: ROPU Patient condition: Good See PACS Report for procedural detail/treatment.
--- NOTE | 2017-12-17 11:42 | P.PN ---
Subjective Interval history: Trauma PTD: 14 Patient states she fell last night, "I just slipped." Plan for chest tube placement today. Physical Exam Vital signs: Vital Signs 12/16/17 12:00 12/16/17 16:00 12/16/17 20:00 Temperature 98.9 F 98.6 F 98.8 F Pulse Rate 69 80 84 Respiratory Rate 17 20 18 Blood Pressure 134/62 112/58 L 154/72 H Pulse Oximetry 96 95 95 12/16/17 21:54 12/16/17 22:22 12/17/17 00:00 Temperature 97.7 F 97.7 F 98.3 F Pulse Rate 78 78 82 Respiratory Rate 18 18 18 Blood Pressure 142/63 H 142/63 H 145/73 H Pulse Oximetry 93 L 93 L 94 L 12/17/17 03:46 12/17/17 08:00 12/17/17 10:45 Temperature 98.5 F 98.9 F 98.6 F Pulse Rate 82 97 H 71 Respiratory Rate 17 19 16 Blood Pressure 135/67 156/67 H 125/53 L Pulse Oximetry 94 L 94 L 92 L 12/17/17 10:51 Temperature Pulse Rate 81 Respiratory Rate Blood Pressure Pulse Oximetry Intake & Output 12/16/17 12/17/17 12/17/17 18:59 06:59 18:59 Intake Total 720 / 720 0 / 0 Balance 720 / 720 0 / 0 Weight 68.1 kg Intake: Oral 720 / 720 0 / 0 Other: # Voids 4 3 Date of Last Bowel Movement 12/17/17 # Bowel Movements 2 Narrative: GENERAL: This is a 62-year-old female who looks older than her stated age. No distress noted. SKIN: Warm and dry. Normal color. HEAD: Atraumatic. Normocephalic. EYES: PERRLA ENT: No nasal bleeding or discharge. Mucous membranes pink and moist. NECK: Trachea midline. No JVD. CARDIOVASCULAR: Regular rate and rhythm. RESPIRATORY: O2 NC at 6L humidified. RR even and unlabored. No accessory muscle use. Lungs are clear to auscultation on right, however decreased on left. Thick wet cough. Breath sounds equal bilaterally. No distress or dyspnea. No SOB. NO increased WOB. GASTROINTESTINAL: BS + x 4 quads. Abdomen soft, non-tender, nondistended. MUSCULOSKELETAL: Extremities without cyanosis, or edema. + peripheral pulses x 4 extremities. Warm with good capillary refill. Left upper extremity with contracture noted. PEREIRA. LEFT CKS in place. NEUROLOGICAL: Awake and alert. Normal speech and pattern. - Urinary Catheter Management Indwelling Urethral Catheter Cath placed during this visit: yes Reason for continuing: Hourly intake/output Insertion date: 12/09/17 Insertion time: 14:00 Results - Labs CBC & Chem 7: 12/19/17 04:32 12/19/17 04:32 Laboratory Results - last 24 hr 12/17/17 12/17/17 03:49 03:49 WBC 6.6 RBC 3.41 L Hgb 9.5 L Hct 29.0 L MCV 85.0 MCH 27.9 MCHC 32.8 RDW 16.1 Plt Count 379 MPV 8.6 Neut % (Auto) 59.3 Lymph % (Auto) 17.4 Mower % (Auto) 15.9 H Eos % (Auto) 7.0 H Baso % (Auto) 0.4 Neut # (Auto) 3.9 Lymph # (Auto) 1.2 Mower # (Auto) 1.1 H Eos # (Auto) 0.5 H Baso # (Auto) 0.0 WBC Differential . Differential Comment Auto diff final Sodium 139 Potassium 3.3 L Chloride 103 Carbon Dioxide 29.8 Anion Gap 6 BUN 9 Creatinine 0.51 Estimated GFR Greater than 89 Random Glucose 69 L Calcium 8.0 L - Imaging Impressions Chest CT 12/16/17 09:46 CONCLUSION: 1. Increasing left pleural effusion and new small right pleural effusion. 2. Increasing airspace disease left upper lobe and right lower lobe. 3. Postsurgical changes left upper quadrant of the abdomen following splenectomy. Chest X-Ray 12/17/17 06:00 CONCLUSION: 1. Left hemithorax remains diffusely opacified which appears to represent infiltrate and/or effusion. 2. Mild hazy opacity at the right lung base. 3. Multiple left rib fractures and right clavicular fracture which may be chronic. 4. Multiple calcified right hilar paratracheal lymph nodes again noted. Assessment and Plan - Plan [place]: This is a 62 year old female who sustained a fall. She states she was at the methadone where she was knocked out of her wheelchair and she fell. Injuries: Left adrenal gland contusion Splenic laceration with hemorrhage Left old rib fractures (multiple) PMHx: PMHx: COPD, CHF, CVA w/ left hemiparesis. tobacco use. Procedures: 12/03: Angiogram, embolization of the lower branches of splenic artery w/ coils and gelfoam 12/09: Transferred back to ICU and intubated for resp distress 12/09: Exploratory laparotomy, splenectomy and abdominal washout. 12/11: Extubated Consults: Case management Diet: Regular diet. Tolerating po diet. Encourage good po intake with each meal. Pulmonary: Encourage good pulmonary toileting. IS at bedside and pt encouraged to use. Rationale for use explained to patient, and verbalized understanding. CXR shows LEFT hemithorax opacity w/ possible loculated fluid. 12/16: CT chest shows increasing left pleural effusion. Plan for chest tube placement with IR . PAIN Management: Methadone 170mg QD. ATIVAN 0.5 mg TID (home meds) Activity: OOB. PT and OT ordered. GI prophylaxis: Pepcid 20 mg BID po. Bowel regimen: Bouchra-Colace. MOM. Lactulose PRN. Senna PRN. Bisacodyl PRN. LBM: 12/15 DVT prophylaxis: Mechanical VTE with SCDs. Chemical management with Lovenox 40 mg daily. (On hold for chest tube placement tomorrow) DC Planning: Case management consulted for assistance with final discharge disposition. Plan for discharge to rehab/SNF upon DC. Emotional support provided to patient at bedside and plan of care discussed. Discussed with RN at bedside during rounds. Discussed pt condition and plan of care with collaborating trauma surgeon. Patient is hemodynamically stable and managed on the med/surg floor. The trauma team will round each day, and evaluate plan of care on a daily basis. LEFT adrenal gland contusion Grade III splenic laceration Supportive care 12/03: Angiogram, embolization of the lower branches of splenic artery w/ coils and Gelfoam 12/09: Exploratory laparotomy, splenectomy and abdominal washout. 12/07: Repeat CT abdomen pelvis done without IV contrast due to iodine allergy. CT abdomen pelvis shows stable free fluid in the abdomen Trend H&H H&H = 9. Does not meet transfusion triggers at this time Monitor s/s of bleeding Pain management Bowel regimen Lovenox for DVT prophylaxis Will need post-splenectomy vaccines prior to discharge Respiratory failure post trauma Smoker COPD Pleural effusion 12/09: Transferred back to ICU and intubated for resp distress 12/09: Exploratory laparotomy, splenectomy and abdominal washout. 12/11: Extubated No distress or dyspnea. No increased WOB. RR even and unlabored. Decreased lung sounds to LEFT lung frank with thick wet cough CXR shows LEFT hemithorax opacity w/ possible loculated fluid. 12/16: CT chest shows increasing left pleural effusion Plan for chest tube placement today in IR Encourage pulmonary toileting Encourage out of bed PT and OT ordered HTN Vitals every 4 hours and PRN Clonidine patch 0.2mg Lopressor 25mg BID Hydralazine 25mg q6h Enalaprilat 1.25mg q6h PRN - Attending Attestation The exam, history, and the medical decision-making described in the above note were completed with the assistance of the mid-level provider. I reviewed and agree with the findings presented. I attest that I had a [id number] encounter with the patient on the same day, and personally performed and documented my assessment and findings in the medical record.
--- NOTE | 2017-12-17 14:07 | CT ---
EXAM DATE: 12/17/2017 1:34 PM EDT AGE/SEX: 62 years / Female INDICATIONS: Left side loculated pleural fluid. Suspect hemothorax. CLINICAL DATA: This is the patient's initial encounter. Patient reports that signs and symptoms have been present for 1 day and indicates a pain score of 0/10. MEDICAL/SURGICAL HISTORY: None. Splenectomy. MEDICATION(S): 2mg midazolam (Versed) IV 200mcg fentanyl (Sublimaze) IV DEVICE(S): 10 Fr Justina . . COMPAR[place]: [facility] [place] 1[place]ING[place] AP, 12/17/2017. . PROCEDURE : CT guided left chest tube placement. The risks, benefits and alternatives to the procedure were explained and verbal and written consent w as obtained. The site was prepped in sterile fashion. Full sterile technique was used, including ca p, mask, sterile gloves and gown and a large sterile sheet. Hand hygiene and 2% chlorhexidine and/or betadine/alcohol prep was utilized per protocol for cutaneous antisepsis. The skin and subcutaneous tissues were infiltrated with local anesthetic solution. Using automated exposure control and adjus tment of the mA and/or kV according to patient size, radiation dose was kept as low as reasonably ach ievable to obtain optimal diagnostic quality images. DICOM format image data is available electronic ally for review and comparison. With CT guidance the chest was punctured and the prescribed catheter was placed in the left lateral o f the lung. Wall suction was applied. Post procedure images demonstrate satisfactory position of the tube. The catheter was sutured in place and a Percu-Stay was applied. The patient tolerated the procedure well and there were no complications. The patient was sent to pos t anesthesia recovery in stable condition. FINDINGS: Small left-sided pleural effusion. CONCLUSION: 1. Uncomplicated chest tube placement as above. Electronically signed by: Cholo Rizo MD 12/17/2017 2:05 PM EDT
[2017-12-17] MEDS: Temazepam 15 MG Capsule PO SCH (21:42)
[2017-12-18] MEDS: hydrALAZINE 25 MG Tablet PO SCH ×5 (00:29→23:51)
[2017-12-18] MEDS: Enoxaparin Inj 40 MG/0.4 ML Syringe SQ SCH (08:45)
[2017-12-18] MEDS: Senna/Docusate Sodium 8.6/50 MG Tablet PO SCH ×2 (08:46→21:44)
[2017-12-18] MEDS: Famotidine 20 MG Tablet PO SCH ×2 (08:46→21:44)
[2017-12-18] MEDS: Metoprolol Tartrate 25 MG Tablet PO SCH ×2 (08:46→21:44)
[2017-12-18] MEDS: ALPRAZolam 0.5 MG Tablet PO SCH ×3 (08:46→18:53)
[2017-12-18] MEDS: Methadone 10 MG Tablet PO SCH (08:46)
--- NOTE | 2017-12-18 12:02 | XR ---
EXAM DATE: 12/18/2017 11:26 AM EDT AGE/SEX: 62 years / Female INDICATIONS: Status post chest tube placement, left side. CLINICAL DATA: This is the patient's initial encounter. Patient reports that signs and symptoms have been present for 1 day and indicates a pain score of 2/10. MEDICAL/SURGICAL HISTORY: None. None. COMPARISON: [facility] – [place], CT CHEST TUBE PLCMT LEFT, 12/17/2017. . FINDINGS: There is a chest tube identified overlying the left lung base and a small left effusion with volume l oss. There is patchy consolidation at the left lung base and atelectasis at the medial right lung bas e. There is cardiomegaly. Midthoracic compression deformity identified. Aortic calcification. Calcifi ed right paratracheal and hilar lymph nodes. CONCLUSION: There is no evidence of pneumothorax. Electronically signed by: Ru Pimentel MD 12/18/2017 11:56 AM EDT
--- NOTE | 2017-12-18 13:05 | P.PN ---
Subjective Interval history: Trauma PTD: 15 Patient sitting up in bed. No distress noted. "How long is this tube done his stay?" Physical Exam Vital signs: Vital Signs 12/17/17 16:00 12/17/17 20:00 12/18/17 00:00 Temperature 98.0 F 98 F 98.1 F Pulse Rate 80 78 82 Respiratory Rate 18 18 18 Blood Pressure 126/61 125/60 145/67 H Pulse Oximetry 94 L 94 L 92 L 12/18/17 04:00 12/18/17 08:00 12/18/17 10:00 Temperature 99 F 98.2 F Pulse Rate 82 84 84 Respiratory Rate 18 20 Blood Pressure 152/70 H 137/61 Pulse Oximetry 92 L 93 L 12/18/17 12:00 Temperature 97.8 F Pulse Rate 72 Respiratory Rate 20 Blood Pressure 131/60 Pulse Oximetry 96 Intake & Output 12/17/17 12/18/17 12/18/17 18:59 06:59 18:59 Intake Total 1180 / 1180 240 / 240 Output Total 75 / 75 20 / 20 20 / 20 Balance 1105 / 1105 220 / 220 -20 / -20 Intake: Oral 1180 / 1180 240 / 240 Output: Chest Tube Drainage 75 / 75 20 / 20 20 / 20 Left 75 / 75 20 / 20 20 / 20 Other: # Voids 1 # Urine Diapers 2 Date of Last Bowel Movement 12/17/17 12/17/17 # Bowel Movements 1 Narrative: GENERAL: This is a 62-year-old female who looks older than her stated age. No distress noted. SKIN: Warm and dry. Normal color. HEAD: Atraumatic. Normocephalic. EYES: PERRLA ENT: No nasal bleeding or discharge. Mucous membranes pink and moist. NECK: Trachea midline. No JVD. CARDIOVASCULAR: Regular rate and rhythm. RESPIRATORY: O2 NC humidified. RR even and unlabored. No accessory muscle use. Lungs are clear to auscultation on right, however decreased on left. Thick wet cough. Breath sounds equal bilaterally. No distress or dyspnea. No SOB. NO increased WOB. Left pigtail chest tube in place to Pleur-evac drainage system to 20 cm suction. Dressing CDI. GASTROINTESTINAL: BS + x 4 quads. Abdomen soft, non-tender, nondistended. MUSCULOSKELETAL: Extremities without cyanosis, or edema. + peripheral pulses x 4 extremities. Warm with good capillary refill. Left upper extremity with contracture noted. PEREIRA. LEFT CKS in place. NEUROLOGICAL: Awake and alert. Normal speech and pattern. - Urinary Catheter Management Indwelling Urethral Catheter Cath placed during this visit: yes Reason for continuing: Hourly intake/output Insertion date: 12/09/17 Insertion time: 14:00 Results - Labs CBC & Chem 7: 12/17/17 03:49 12/17/17 03:49 Laboratory Results - last 24 hr 12/17/17 03:49 Magnesium 1.9 - Imaging Impressions Chest Tube Insertion 12/17/17 11:20 CONCLUSION: 1. Uncomplicated chest tube placement as above. Chest X-Ray 12/18/17 10:24 CONCLUSION: There is no evidence of pneumothorax. Assessment and Plan - Plan [place]: This is a 62 year old female who sustained a fall. She states she was at the methadone where she was knocked out of her wheelchair and she fell. Injuries: Left adrenal gland contusion Splenic laceration with hemorrhage Left old rib fractures (multiple) PMHx: PMHx: COPD, CHF, CVA w/ left hemiparesis. tobacco use. Procedures: 12/03: Angiogram, embolization of the lower branches of splenic artery w/ coils and gelfoam 12/09: Transferred back to ICU and intubated for resp distress 12/09: Exploratory laparotomy, splenectomy and abdominal washout. 12/11: Extubated 12/17: CT-guided LEFT CT placement Consults: Case management Diet: Regular diet. Tolerating po diet. Encourage good po intake with each meal. Follow-up labs in the morning. Pulmonary: Encourage good pulmonary toileting. IS at bedside and pt encouraged to use. Rationale for use explained to patient, and verbalized understanding. Left pigtail chest tube in place to Pleur-evac drainage system to 20 cm suction. Dressing CDI. Chest tube output = 20 ml/24hrs. Follow-up chest x-ray in the morning PAIN Management: Methadone 170mg QD. ATIVAN 0.5 mg TID (home meds) Activity: OOB. PT and OT ordered. GI prophylaxis: Pepcid 20 mg BID po. Bowel regimen: Bouchra-Colace. MOM. Lactulose PRN. Senna PRN. Bisacodyl PRN. LBM: 12/17. DVT prophylaxis: Mechanical VTE with SCDs. Chemical management with Lovenox 40 mg daily. DC Planning: Case management consulted for assistance with final discharge disposition. Plan for discharge to rehab/SNF upon DC. Emotional support provided to patient at bedside and plan of care discussed. Discussed with RN at bedside during rounds. Discussed pt condition and plan of care with collaborating trauma surgeon. Patient is hemodynamically stable and managed on the med/surg floor. The trauma team will round each day, and evaluate plan of care on a daily basis. LEFT adrenal gland contusion Grade III splenic laceration Supportive care 12/03: Angiogram, embolization of the lower branches of splenic artery w/ coils and Gelfoam 12/09: Exploratory laparotomy, splenectomy and abdominal washout. 12/07: Repeat CT abdomen pelvis done without IV contrast due to iodine allergy. CT abdomen pelvis shows stable free fluid in the abdomen Trend H&H H&H = 9. Does not meet transfusion triggers at this time Monitor s/s of bleeding Pain management Bowel regimen Lovenox for DVT prophylaxis Will need post-splenectomy vaccines prior to discharge Respiratory failure post trauma Smoker COPD Pleural effusion 12/09: Transferred back to ICU and intubated for resp distress 12/09: Exploratory laparotomy, splenectomy and abdominal washout. 12/11: Extubated No distress or dyspnea. No increased WOB. RR even and unlabored. Decreased lung sounds to LEFT lung frank with thick wet cough CXR shows LEFT hemithorax opacity w/ possible loculated fluid. 12/16: CT chest shows increasing left pleural effusion 12/17: Left CT placed by IR Left pigtail chest tube in place to Pleur-evac drainage system to 20 cm suction. Chest tube output = 20 ml/24 hrs Follow-up chest x-ray in the morning Encourage pulmonary toileting Encourage out of bed PT and OT ordered HTN Vitals every 4 hours and PRN Clonidine patch 0.2mg Lopressor 25mg BID Hydralazine 25mg q6h Enalaprilat 1.25mg q6h PRN Addendum doing well overall,CT 50cc overall,continue current care-pain control DVT prophylaxis
[2017-12-18] MEDS: Temazepam 15 MG Capsule PO SCH (21:44)
[2017-12-19 04:48] LABS: Baso % (Auto) 0.5 % (0.0-2.0); Eos # (Auto) 0.4 th/mm3 (0.0-0.4); Eos % (Auto) 4.7 % (0.0-4.0); Hematocrit 29.4 % (35.0-46.0); Hemoglobin 9.7 gm/dL (11.6-15.3); Lymph # (Auto) 1.6 th/mm3 (1.0-4.8); Lymph % (Auto) 17.9 % (9.0-44.0); Mean Corpuscular HGB Conc 33.1 % (32.0-36.0); Mean Corpuscular Volume 84.7 fL (80.0-100.0); Mean Platelet Volume 8.5 fL (7.0-11.0); Mono % (Auto) 10.8 % (0.0-8.0); Neut % (Auto) 66.1 % (16.0-70.0); Platelet Count 455 th/mm3 (150-450); Red Blood Count 3.47 mil/mm3 (4.00-5.30); White Blood Count 9.1 th/mm3 (4.0-11.0)
[2017-12-19 05:13] LABS: Anion Gap 10 meq/L (5-15); Blood Urea Nitrogen 8 mg/dL (7-18); Calcium 8.3 mg/dL (8.5-10.1); Carbon Dioxide 27.9 meq/L (21.0-32.0); Chloride 102 meq/L (98-107); Glomerular Filtration Rate Greater Than 89 mL/min (>89); Glucose,Random 74 mg/dL (74-106); Potassium 3.5 meq/L (3.5-5.1); Sodium 140 meq/L (136-145)
[2017-12-19] MEDS: hydrALAZINE 25 MG Tablet PO SCH ×3 (06:21→18:02)
--- NOTE | 2017-12-19 06:56 | XR ---
EXAM DATE: 12/19/2017 6:49 AM EDT AGE/SEX: 62 years / Female INDICATIONS: Cough, short of breath, chest tube left side CLINICAL DATA: This is the patient's subsequent encounter. Patient reports that signs and symptoms h ave been present for 4 - 6 days and indicates a pain score of 0/10. MEDICAL/SURGICAL HISTORY: . trauma Chest tube, left. COMPARISON: [facility] – [place], CHEST EXPIRATION ONLY, 12/18/2017. . FINDINGS: A single AP erect expiratory view of the chest was obtained. This demonstrates new volume loss in the left hemithorax with mediastinal shift to the left. There is new complete opacification of the left hemithorax with small amount of residual aeration in the upper lobe. There is apparent cutoff of the mainstem bronchus. The heart size remains prominent. The right lung is hyperaerated inflated. Multipl e calcified mediastinal and right hilar lymph nodes are again noted. The small bore left-sided chest tube remains in place with no pneumothorax. Overlying electrocardiogram leads are present. CONCLUSION: 1. New volume loss and mediastinal shift to the left. There is apparent cut off of the left mainstem bronchus which could be secondary to mucous plugging. 2. The small bore left-sided chest tube remains in place. Electronically signed by: Lauro Wan MD 12/19/2017 6:55 AM EDT
[2017-12-19] MEDS ORDERED: Chlorhexidine Gluconate 2% 1 Pack (2 Cloths) TOPICAL SCH (09:30)
[2017-12-19] MEDS ORDERED: Metoprolol Tartrate 25 MG Tablet PO SCH (09:30)
[2017-12-19] MEDS ORDERED: Sodium Chlor 0.9% Inj 500 ML IV.SIG SCH (10:00)
[2017-12-19] MEDS: Methadone 10 MG Tablet PO SCH (10:25)
[2017-12-19] MEDS: ALPRAZolam 0.5 MG Tablet PO SCH ×3 (10:26→18:02)
[2017-12-19] MEDS: Metoprolol Tartrate 25 MG Tablet PO SCH ×2 (10:26→21:14)
[2017-12-19] MEDS: Enoxaparin Inj 40 MG/0.4 ML Syringe SQ SCH (10:31)
--- NOTE | 2017-12-19 11:19 | P.PN ---
Subjective Interval history: Trauma PTD: 16 Patient OOB and sitting in a recliner chair. No distress noted. O2 nasal cannula at 5 L. Patient states, "they are not going to sedate me." Physical Exam Vital signs: Vital Signs 12/18/17 12:00 12/18/17 16:00 12/18/17 20:00 Temperature 97.8 F 97.7 F 97.8 F Pulse Rate 72 74 81 Respiratory Rate 20 20 18 Blood Pressure 131/60 126/60 105/51 L Pulse Oximetry 96 91 L 91 L 12/19/17 00:00 12/19/17 04:00 Temperature 97.8 F 97.6 F Pulse Rate 71 68 Respiratory Rate 19 20 Blood Pressure 108/57 L 112/56 L Pulse Oximetry 94 L 93 L Intake & Output 12/18/17 12/19/17 12/19/17 18:59 06:59 18:59 Intake Total 800 / 800 700 / 700 Output Total 420 / 420 20 / 20 Balance 380 / 380 680 / 680 Weight 68.1 kg Intake: Oral 800 / 800 700 / 700 Output: Urine 400 / 400 Chest Tube Drainage 20 / 20 Left 20 / 20 20 / 20 Other: # Voids 2 4 Date of Last Bowel Movement 12/17/17 12/18/17 Narrative: GENERAL: This is a 62-year-old female who looks older than her stated age -OOB in a recliner chair. No distress noted. SKIN: Warm and dry. Normal color. HEAD: Atraumatic. Normocephalic. EYES: PERRLA ENT: No nasal bleeding or discharge. Mucous membranes pink and moist. NECK: Trachea midline. No JVD. CARDIOVASCULAR: Regular rate and rhythm. RESPIRATORY: O2 NC 5L humidified. RR even and unlabored. No accessory muscle use. Lungs are clear to auscultation on right, however decreased on left. Thick wet cough. Breath sounds equal bilaterally. No distress or dyspnea. No SOB. NO increased WOB. Left pigtail chest tube in place to Pleur-evac drainage system to 20 cm suction. Dressing CDI. GASTROINTESTINAL: BS + x 4 quads. Abdomen soft, non-tender, nondistended. MUSCULOSKELETAL: Extremities without cyanosis, or edema. + peripheral pulses x 4 extremities. Warm with good capillary refill. Left upper extremity with contracture noted. PEREIRA. LEFT CKS in place. NEUROLOGICAL: Awake and alert. Normal speech and pattern. - Urinary Catheter Management Indwelling Urethral Catheter Cath placed during this visit: yes Reason for continuing: Hourly intake/output Insertion date: 12/09/17 Insertion time: 14:00 Results - Labs CBC & Chem 7: 12/19/17 04:32 12/19/17 04:32 Laboratory Results - last 24 hr 12/19/17 12/19/17 04:32 04:32 WBC 9.1 RBC 3.47 L Hgb 9.7 L Hct 29.4 L MCV 84.7 MCH 28.0 MCHC 33.1 RDW 16.0 Plt Count 455 H MPV 8.5 Neut % (Auto) 66.1 Lymph % (Auto) 17.9 [place]idan % (Auto) 10.8 H Eos % (Auto) 4.7 H Baso % (Auto) 0.5 Neut # (Auto) 6.0 Lymph # (Auto) 1.6 [place]idan # (Auto) 1.0 H Eos # (Auto) 0.4 Baso # (Auto) 0.0 WBC Differential . Differential Comment Auto diff final Sodium 140 Potassium 3.5 Chloride 102 Carbon Dioxide 27.9 Anion Gap 10 BUN 8 Creatinine 0.50 Estimated GFR Greater than 89 Random Glucose 74 Calcium 8.3 L - Imaging Impressions Chest X-Ray 12/18/17 10:24 CONCLUSION: There is no evidence of pneumothorax. Chest X-Ray 12/19/17 06:00 CONCLUSION: 1. New volume loss and mediastinal shift to the left. There is apparent cut off of the left mainstem bronchus which could be secondary to mucous plugging. 2. The small bore left-sided chest tube remains in place. Assessment and Plan - Plan [place]: This is a 62 year old female who sustained a fall. She states she was at the methadone where she was knocked out of her wheelchair and she fell. Injuries: Left adrenal gland contusion Splenic laceration with hemorrhage Left old rib fractures (multiple) PMHx: PMHx: COPD, CHF, CVA w/ left hemiparesis. tobacco use. Procedures: 12/03: Angiogram, embolization of the lower branches of splenic artery w/ coils and gelfoam 12/09: Transferred back to ICU and intubated for resp distress 12/09: Exploratory laparotomy, splenectomy and abdominal washout. 12/11: Extubated 12/17: CT-guided LEFT CT placement Consults: Case management Diet: Regular diet. Tolerating po diet. Encourage good po intake with each meal. Follow-up labs in the morning. Pulmonary: Encourage good pulmonary toileting. IS at bedside and pt encouraged to use. Rationale for use explained to patient, and verbalized understanding. Left pigtail chest tube in place to Pleur-evac drainage system to 20 cm suction. Dressing CDI. Chest tube output = 40 ml/24hrs. A.m. chest x-ray shows completely deisy out left lung. Appears to be occlusion of the left bronchus. Contacted Dr. Hayes, and made him aware. He plans to take her to the [facility] lab. Cough and deep breathe, NT suction as needed. Follow-up chest x-ray in the morning PAIN Management: Methadone 170mg QD. ATIVAN 0.5 mg TID (home meds) Activity: OOB. PT and OT ordered. GI prophylaxis: Pepcid 20 mg BID po. Bowel regimen: Bouchra-Colace. MOM. Lactulose PRN. Senna PRN. Bisacodyl PRN. LBM: 12/17. DVT prophylaxis: Mechanical VTE with SCDs. Chemical management with Lovenox 40 mg daily. DC Planning: Case management consulted for assistance with final discharge disposition. Plan for discharge to rehab/SNF upon DC. Emotional support provided to patient at bedside and plan of care discussed. Discussed with RN at bedside during rounds. Discussed pt condition and plan of care with collaborating trauma surgeon. Patient is hemodynamically stable and managed on the med/surg floor. The trauma team will round each day, and evaluate plan of care on a daily basis. LEFT adrenal gland contusion Grade III splenic laceration Supportive care 12/03: Angiogram, embolization of the lower branches of splenic artery w/ coils and Gelfoam 12/09: Exploratory laparotomy, splenectomy and abdominal washout. 12/07: Repeat CT abdomen pelvis done without IV contrast due to iodine allergy. CT abdomen pelvis shows stable free fluid in the abdomen Trend H&H H&H = 9.7 / 29.4 Does not meet transfusion triggers at this time Monitor s/s of bleeding Pain management Bowel regimen Lovenox for DVT prophylaxis Will need post-splenectomy vaccines prior to discharge Respiratory failure post trauma Smoker COPD Pleural effusion Occlusion of left bronchus 12/09: Transferred back to ICU and intubated for resp distress 12/09: Exploratory laparotomy, splenectomy and abdominal washout. 12/11: Extubated No distress or dyspnea. No increased WOB. RR even and unlabored. Decreased lung sounds to LEFT lung frank with thick wet cough CXR shows LEFT hemithorax opacity w/ possible loculated fluid. 12/16: CT chest shows increasing left pleural effusion 12/17: Left CT placed by IR Left pigtail chest tube in place to Pleur-evac drainage system to 20 cm suction. Chest tube output = 40 ml/24 hrs A.m. chest x-ray shows occlusion of left bronchus -Dr. Hayes made aware Plan for bronchoscopy today in the [facility] lab Encourage pulmonary toileting NT suction as needed Encourage out of bed PT and OT ordered HTN Vitals every 4 hours and PRN Clonidine patch 0.2mg Lopressor 25mg BID Hydralazine 25mg q6h Enalaprilat 1.25mg q6h PRN - Attending Attestation The exam, history, and the medical decision-making described in the above note were completed with the assistance of the mid-level provider. I reviewed and agree with the findings presented. I attest that I had a [id number] encounter with the patient on the same day, and personally performed and documented my assessment and findings in the medical record.
[2017-12-19] MEDS ORDERED: Lidocaine PF 1% Inj 5 ML Syringe INFILTRATN ONE (12:00)
--- NOTE | 2017-12-19 14:57 | MP ---
cc: Lavonne Boyd MD DATE OF OPERATION: 12/19/2017 PREOPERATIVE DIAGNOSIS: Collapse and atelectasis of the entire left lung, whiteout of the left chest, status post trauma to the chest. POSTOPERATIVE DIAGNOSIS: Collapse and atelectasis of the entire left lung, whiteout of the left chest, status post trauma to the chest. OPERATIONS: Bronchoscopy and evacuation of mucous material and lavage of the left lung. SURGEON: MD eDb ANESTHESIA: General. ESTIMATED BLOOD LOSS: None. OPERATIVE PROCEDURE: The patient is prepared and then bronchoscope was inserted through the endotracheal tube, into the trachea and down to the main stem bronchi division. The patient has massive amounts of very thick mucus which is suctioned off with repeatedly removing the bronchoscope to get it out. This is so thick that it will not even go through the bronchoscope. Some of this tenacious material was sent for cultures. The bronchial tree is now irrigated copiously with saline and then suction continued the first into the main stem bronchus and then into the first, second and third generation aberrations of the bronchi on the left. Once everything is cleaned out, the right side is washed out and cleaned, but this is minimal material. Bronchoscope is withdrawn. The patient tolerated the procedure well. MD LUIS ALBERTO Barros/CRISTHIAN , 02:43 PM , 02:51 PM
--- NOTE | 2017-12-19 16:05 | XR ---
EXAM DATE: 12/19/2017 3:36 PM EDT AGE/SEX: 62 years / Female INDICATIONS: Status post bronchoscopy. CLINICAL DATA: This is the patient's subsequent encounter. Patient reports that signs and symptoms h ave been present for 3 days and indicates a pain score of 3/10. MEDICAL/SURGICAL HISTORY: None. None. COMPARISON: [facility] – [place], CHEST 1V SINGLE AP, 12/19/2017. . FINDINGS: Patient is status post bronchoscopy. There is no pneumothorax. There is a small chest tube along the lower left hemithorax. There is some parenchymal consolidation the left lower lung. The right lung is grossly clear with some chronic interstitial changes. The heart size is stable. The bony structures are stable. CONCLUSION: Status post bronchoscopy. No evidence of pneumothorax. Electronically signed by: Pietro Chen MD 12/19/2017 4:03 PM EDT
[2017-12-19] MEDS: Senna/Docusate Sodium 8.6/50 MG Tablet PO SCH ×2 (17:17→21:14)
[2017-12-19] MEDS: Famotidine 20 MG Tablet PO SCH ×2 (17:17→21:14)
[2017-12-19] MEDS: Temazepam 15 MG Capsule PO SCH (21:14)
[2017-12-20] MEDS: hydrALAZINE 25 MG Tablet PO SCH ×4 (00:50→18:09)
--- NOTE | 2017-12-20 07:14 | XR ---
EXAM DATE: 12/20/2017 7:08 AM EDT AGE/SEX: 62 years / Female INDICATIONS: Cough, short of breath, follow up left chest tube CLINICAL DATA: This is the patient's subsequent encounter. Patient reports that signs and symptoms h ave been present for 1 week and indicates a pain score of 5/10. MEDICAL/SURGICAL HISTORY: None. Chest tube, left. [place] [facility] [place]19[place]. . FINDINGS: A single AP view of the chest was performed. Similar opacification of the left mid-lower lung. Left-s ided pleural pigtail catheter remains in place. Improved aeration of the right lung base with likely chronic reticular interstitial changes. Grossly stable cardiomediastinal silhouette. No appreciable p neumothorax. CONCLUSION: Improved aeration of the right lung base. Otherwise, no significant interval change. Electronically signed by: Linda Wilkinson MD 12/20/2017 7:12 AM EDT
[2017-12-20] MEDS: Methadone 10 MG Tablet PO SCH (09:43)
[2017-12-20] MEDS: Senna/Docusate Sodium 8.6/50 MG Tablet PO SCH ×2 (09:46→20:25)
[2017-12-20] MEDS: Metoprolol Tartrate 25 MG Tablet PO SCH ×2 (09:47→20:23)
[2017-12-20] MEDS: ALPRAZolam 0.5 MG Tablet PO SCH ×3 (09:47→18:09)
[2017-12-20] MEDS: Enoxaparin Inj 40 MG/0.4 ML Syringe SQ SCH (09:47)
[2017-12-20] MEDS: Famotidine 20 MG Tablet PO SCH ×2 (09:47→20:25)
--- NOTE | 2017-12-20 12:47 | P.PNGS ---
<Raymundo Jasso M - Last Filed: 12/20/17 12:34> Subjective Interval history: Reports she is breathing easier today No complaints Physical Exam Vital signs: Vital Signs 12/19/17 14:28 12/19/17 14:35 12/19/17 14:45 Temperature 98.2 F Pulse Rate 71 68 Respiratory Rate 20 20 Blood Pressure 106/58 L 99/56 L Pulse Oximetry 96 96 96 12/19/17 15:00 12/19/17 15:15 12/19/17 16:00 Temperature 98.0 F Pulse Rate 72 68 74 Respiratory Rate 19 19 20 Blood Pressure 101/62 98/57 L 117/55 L Pulse Oximetry 91 L 93 L 12/19/17 20:00 12/19/17 21:13 12/20/17 00:00 Temperature 97.7 F 99.1 F Pulse Rate 83 76 Respiratory Rate 15 18 Blood Pressure 135/61 117/56 L Pulse Oximetry 93 L 93 L 93 L 12/20/17 00:03 12/20/17 04:00 12/20/17 04:08 Temperature 98.9 F Pulse Rate 73 82 73 Respiratory Rate 15 Blood Pressure 132/67 Pulse Oximetry 95 12/20/17 08:00 Temperature 98.9 F Pulse Rate 78 Respiratory Rate 16 Blood Pressure 114/57 L Pulse Oximetry 93 L Intake & Output 12/19/17 12/20/17 12/20/17 18:59 06:59 18:59 Intake Total 360 / 360 240 / 240 Output Total 0 / 0 0 / 0 Balance 360 / 360 240 / 240 Weight 69 kg Intake: Oral 360 / 360 240 / 240 Output: Chest Tube Drainage 0 / 0 0 / 0 Left 0 / 0 0 / 0 Other: # Voids 93 5 Date of Last Bowel Movement 12/18/17 12/19/17 # Bowel Movements 0 Narrative: GENERAL: 62-year-old female who looks older than her stated age eating breakfast. HEAD: Normocephalic. ENT: No nasal bleeding or discharge. Mucous membranes pink and moist. NECK: Trachea midline. No JVD. CARDIOVASCULAR: Regular rate and rhythm. RESPIRATORY: Lungs are clear and diminished to auscultation bilaterally. Left lateral chest tube in place to Pleur-evac system on -20 cm suction. No air leak noted. GASTROINTESTINAL: BS + x 4 quads. Abdomen soft, non-tender, nondistended. Midline abdominal dressing C/D/I. MUSCULOSKELETAL: Extremities without cyanosis, or edema. Left upper extremity with contracted. PEREIRA. LEFT CKS in place. + perfused. NEUROLOGICAL: Awake and alert. Normal speech. - Urinary Catheter Management Indwelling Urethral Catheter Cath placed during this visit: yes, but has since been removed by the nurse Insertion date: 12/09/17 Insertion time: 14:00 Removal date: 12/11/17 Assessment and Plan - Plan [place]: Knocked out of her wheelchair and hit the floor. No LOC. INJURIES: LEFT adrenal gland contusion Grade III splenic laceration PMHx: COPD, CHF, CVA w/ left hemiparesis. tobacco use. Procedures: 12/03: Angiogram, embolization of the lower branches of splenic artery w/ coils and Gelfoam 12/09: Transferred back to ICU and intubated for resp distress 12/09: Exploratory laparotomy, splenectomy and abdominal washout. 12/11: Extubated 12/17: Left CT placed by IR 8/2: Bronchoscopy LEFT adrenal gland contusion, Grade III splenic laceration Supportive care 12/03: Angiogram, embolization of the lower branches of splenic artery w/ coils and Gelfoam 12/07: Repeat CT abdomen pelvis done without IV contrast due to iodine allergy. CT abdomen pelvis shows stable free fluid in the abdomen 12/09: Transferred back to ICU and intubated for resp distress 12/09: RIJ TLC placement 12/09: Exploratory laparotomy, splenectomy and abdominal washout. 12/11: Extubated Hgb stable Tele Pain control Bowel regimen OOB- PT/OT ordered Lovenox Will need splenectomy vaccines before discharge Respiratory failure post trauma, tobacco use, COPD, Pleural effusion, Occlusion of left bronchus 12/09: Transferred back to ICU and intubated for resp distress 12/11: Extubated 12/16: CT chest shows increasing left pleural effusion 12/17: Left CT placed by IR 8/2: Bronchoscopy Chest tube to water seal today Chest tube output minimal CXR today shows improving aeration Encourage pulmonary toileting OOB-PT and OT ordered HTN Clonidine patch 0.2mg Lopressor 25mg BID Hydralazine 25mg q6h Enalaprilat 1.25mg q6h PRN BP improving Plan of care discussed with patient and RN at bedside. Collaborating Trauma surgeon agrees with plan. Case management consulted to assist with discharge planning. [place] need SNF placement at [place]. <Terence Hernandesian - Last Filed: 12/21/17 00:44> Physical Exam Vital signs: Vital Signs 12/20/17 04:00 12/20/17 04:08 12/20/17 08:00 Temperature 98.9 F 98.9 F Pulse Rate 82 73 78 Respiratory Rate 15 16 Blood Pressure 132/67 114/57 L Pulse Oximetry 95 93 L 12/20/17 16:00 12/20/17 20:00 12/20/17 20:10 Temperature 97.7 F 97.8 F Pulse Rate 68 68 67 Respiratory Rate 16 16 Blood Pressure 91/52 L 106/53 L Pulse Oximetry 94 L 93 L Intake & Output 12/20/17 12/20/17 12/21/17 06:59 18:59 06:59 Intake Total 240 / 240 Output Total 0 / 0 Balance 240 / 240 Weight 69 kg Intake: Oral 240 / 240 Output: Chest Tube Drainage 0 / 0 Left 0 / 0 Other: # Voids 5 Date of Last Bowel Movement 12/19/17 12/19/17 - Urinary Catheter Management Indwelling Urethral Catheter Cath placed during this visit: no Assessment and Plan - Attending Attestation The exam, history, and the medical decision-making described in the above note were completed with the assistance of the mid-level provider. I reviewed and agree with the findings presented. I attest that I had a [id number] encounter with the patient on the same day, and personally performed and documented my assessment and findings in the medical record.
[2017-12-20] MEDS: Temazepam 15 MG Capsule PO SCH (20:25)
[2017-12-21] MEDS: hydrALAZINE 25 MG Tablet PO SCH ×4 (00:29→18:50)
--- NOTE | 2017-12-21 06:07 | XR ---
EXAM DATE: 12/21/2017 5:52 AM EDT AGE/SEX: 62 years / Female INDICATIONS: Follow up left chest tube. CLINICAL DATA: This is the patient's subsequent encounter. Patient reports that signs and symptoms h ave been present for 3 weeks and indicates a pain score of 4/10. MEDICAL/SURGICAL HISTORY: None. . Chest tube, left. COMPARISON: [facility] – [place]ST 1V SINGLE AP, 12/20/2017. . FINDINGS: Moderate patient rotation towards the left. There is persisting consolidation in the left lower lung with loss of delineation of portions of the left heart border and the entire left hemidiaphragm. Ther e is a new opacity in the upper lateral upper left chest which measures almost 4 cm in size. Stable c alcified superior mediastinal and right hilar nodes. The right lung is clear. Stable deformity right hemidiaphragm. Left chest drainage catheter remains projected over the lower chest. No pneumothorax s een on this semierect film. CONCLUSION: Stable left lower lung consolidation. New consolidative opacity upper lateral left upper lung. Electronically signed by: Rajat Tejeda MD 12/21/2017 6:05 AM EDT
[2017-12-21] MEDS: ALPRAZolam 0.5 MG Tablet PO SCH ×3 (09:47→18:50)
[2017-12-21] MEDS: Senna/Docusate Sodium 8.6/50 MG Tablet PO SCH ×2 (09:47→20:31)
[2017-12-21] MEDS: Metoprolol Tartrate 25 MG Tablet PO SCH ×2 (09:47→20:28)
[2017-12-21] MEDS: Methadone 10 MG Tablet PO SCH (09:48)
[2017-12-21] MEDS: Famotidine 20 MG Tablet PO SCH ×2 (09:48→20:28)
[2017-12-21] MEDS: Enoxaparin Inj 40 MG/0.4 ML Syringe SQ SCH (09:48)
--- NOTE | 2017-12-21 13:05 | P.PNGS ---
<Raymundo Jasso M - Last Filed: 12/21/17 13:00> Subjective Interval history: No PTX on CXR today Denies SOB Physical Exam Vital signs: Vital Signs 12/20/17 16:00 12/20/17 20:00 12/20/17 20:10 Temperature 97.7 F 97.8 F Pulse Rate 68 68 67 Respiratory Rate 16 16 Blood Pressure 91/52 L 106/53 L Pulse Oximetry 94 L 93 L 12/20/17 20:22 12/20/17 23:59 12/21/17 00:00 Temperature 98.5 F Pulse Rate 64 73 Respiratory Rate 16 Blood Pressure 113/55 L Pulse Oximetry 93 L 93 L 12/21/17 03:57 12/21/17 04:00 12/21/17 08:00 Temperature 98.6 F 98.1 F Pulse Rate 64 71 72 Respiratory Rate 16 17 Blood Pressure 107/52 L 104/51 L Pulse Oximetry 92 L 92 L Intake & Output 12/20/17 12/21/17 12/21/17 18:59 06:59 18:59 Intake Total 240 / 240 Output Total 0 / 0 Balance 240 / 240 Intake: Oral 240 / 240 Output: Chest Tube Drainage 0 / 0 Left 0 / 0 Other: # Voids 2 Date of Last Bowel Movement 12/19/17 12/20/17 Narrative: GENERAL: 62-year-old female sitting up in bed. HEAD: Normocephalic. ENT: No nasal bleeding or discharge. Mucous membranes pink and moist. NECK: Trachea midline. No JVD. CARDIOVASCULAR: Regular rate and rhythm. RESPIRATORY: Lungs are clear and diminished to auscultation bilaterally. Left lateral chest tube in place to Pleur-evac system on water seal. No air leak noted. GASTROINTESTINAL: BS + x 4 quads. Abdomen soft, non-tender, nondistended. Midline abdominal incision open to air, bradford intact without erythema. MUSCULOSKELETAL: Extremities without cyanosis, or edema. Left upper extremity with contracted. PEREIRA. LEFT CKS in place. + perfused. NEUROLOGICAL: Awake and alert. Normal speech. - Urinary Catheter Management Indwelling Urethral Catheter Cath placed during this visit: yes, but has since been removed by the nurse Reason for continuing: Hourly intake/output Insertion date: 12/09/17 Insertion time: 14:00 Removal date: 12/11/17 Assessment and Plan - Plan [place]: Knocked out of her wheelchair and hit the floor. No LOC. INJURIES: LEFT adrenal gland contusion Grade III splenic laceration PMHx: COPD, CHF, CVA w/ left hemiparesis. tobacco use. Procedures: 12/03: Angiogram, embolization of the lower branches of splenic artery w/ coils and Gelfoam 12/09: Transferred back to ICU and intubated for resp distress 12/09: Exploratory laparotomy, splenectomy and abdominal washout. 12/11: Extubated 12/17: Left CT placed by IR 8/2: Bronchoscopy LEFT adrenal gland contusion, Grade III splenic laceration Supportive care 12/03: Angiogram, embolization of the lower branches of splenic artery w/ coils and Gelfoam 12/07: Repeat CT abdomen pelvis done without IV contrast due to iodine allergy. CT abdomen pelvis shows stable free fluid in the abdomen 12/09: Transferred back to ICU and intubated for resp distress 12/09: RIJ TLC placement 12/09: Exploratory laparotomy, splenectomy and abdominal washout. 12/11: Extubated Hgb stable Tele Pain control Bowel regimen OOB- PT/OT ordered Lovenox Will need splenectomy vaccines before discharge- D/W patient She will need an influenza vaccine when it becomes available this year-patient informed Respiratory failure post trauma, tobacco use, COPD, Pleural effusion, Occlusion of left bronchus 12/09: Transferred back to ICU and intubated for resp distress 12/11: Extubated 12/16: CT chest shows increasing left pleural effusion 12/17: Left CT placed by IR 8/2: Bronchoscopy Chest tube output minimal CXR today shows no PTX, new consolidation FANY, stable LLL consolidation Afebrile Chest tube removed at bedside without incident CXR in AM Encourage pulmonary toileting OOB-PT and OT ordered HTN Clonidine patch 0.2mg Lopressor 25mg BID Hydralazine 25mg q6h Enalaprilat 1.25mg IV q6h PRN BP improving Plan of care discussed with patient and Brittany the hospice case manager. Collaborating Trauma surgeon agrees with plan. Case management consulted to assist with discharge planning. Planning for discharge back to SNF on Saturday. <Edvin Hernandes - Last Filed: 12/22/17 09:26> Physical Exam Vital signs: Vital Signs 12/21/17 12:00 12/21/17 14:00 12/21/17 16:00 Temperature 97.6 F 98.0 F Pulse Rate 65 62 Respiratory Rate 19 18 Blood Pressure 96/49 L 112/53 L Pulse Oximetry 96 93 L 93 L 12/21/17 17:50 12/21/17 20:00 12/21/17 20:09 Temperature 97.7 F Pulse Rate 61 61 Respiratory Rate 20 Blood Pressure 116/55 L Pulse Oximetry 93 L 93 L 12/22/17 00:00 12/22/17 00:10 12/22/17 04:00 Temperature 98 F 98.5 F Pulse Rate 61 55 L 61 Respiratory Rate 20 18 Blood Pressure 103/54 L 115/58 L Pulse Oximetry 95 95 12/22/17 04:03 12/22/17 08:00 Temperature 98.3 F Pulse Rate 57 L 70 Respiratory Rate 17 Blood Pressure 113/56 L Pulse Oximetry 94 L Intake & Output 12/21/17 12/22/17 12/22/17 18:59 06:59 18:59 Intake Total 450 / 450 360 / 360 Balance 450 / 450 360 / 360 Weight 63.1 kg Intake: Oral 450 / 450 360 / 360 Other: # Voids 5 2 Date of Last Bowel Movement 12/21/17 # Bowel Movements 0 - Urinary Catheter Management Indwelling Urethral Catheter Cath placed during this visit: no
[2017-12-21] MEDS: Temazepam 15 MG Capsule PO SCH (20:28)
[2017-12-22] MEDS: hydrALAZINE 25 MG Tablet PO SCH ×4 (00:40→17:56)
[2017-12-22] MEDS ORDERED: Pneumococcal-13 Valent Ped Vacc Inj 0.5 ML Syringe IM ONE (07:38)
--- NOTE | 2017-12-22 07:48 | XR ---
EXAM DATE: 12/22/2017 7:41 AM EDT AGE/SEX: 62 years / Female INDICATIONS: S/P chest tube removal. CLINICAL DATA: This is the patient's initial encounter. Patient reports that signs and symptoms have been present for 1 day and indicates a pain score of 0/10. MEDICAL/SURGICAL HISTORY: None. None. COMPARISON: [facility] – [place]ST 1V SINGLE AP, 12/21/2017. . FINDINGS: AP portable semiupright view of the chest demonstrates improved aeration of the left hemithorax. Ther e is no visible pneumothorax present. There is persistent blunting of the left costophrenic angle con sistent with either small fluid or atelectasis/consolidation. Right hemithorax is clear. Heart size i s moderately enlarged. CONCLUSION: Overall improved aeration of the left hemithorax. No visible pneumothorax. Electronically signed by: Jovanna Salas MD 12/22/2017 7:46 AM EDT
[2017-12-22] MEDS: Metoprolol Tartrate 25 MG Tablet PO SCH ×2 (10:14→20:21)
[2017-12-22] MEDS: Famotidine 20 MG Tablet PO SCH ×2 (10:14→20:21)
[2017-12-22] MEDS: ALPRAZolam 0.5 MG Tablet PO SCH ×3 (10:14→17:56)
[2017-12-22] MEDS: Senna/Docusate Sodium 8.6/50 MG Tablet PO SCH ×2 (10:15→20:21)
[2017-12-22] MEDS: Enoxaparin Inj 40 MG/0.4 ML Syringe SQ SCH (10:15)
[2017-12-22] MEDS: Methadone 10 MG Tablet PO SCH (10:15)
--- NOTE | 2017-12-22 14:28 | P.PNGS ---
<Raymundo Jasso M - Last Filed: 12/22/17 17:50> Subjective Interval history: CXR shows no PTX post-CT removal Denies SOB Physical Exam Vital signs: Vital Signs 12/21/17 16:00 12/21/17 17:50 12/21/17 20:00 Temperature 98.0 F 97.7 F Pulse Rate 62 61 Respiratory Rate 18 20 Blood Pressure 112/53 L 116/55 L Pulse Oximetry 93 L 93 L 93 L 12/21/17 20:09 12/22/17 00:00 12/22/17 00:10 Temperature 98 F Pulse Rate 61 61 55 L Respiratory Rate 20 Blood Pressure 103/54 L Pulse Oximetry 95 12/22/17 04:00 12/22/17 04:03 12/22/17 08:00 Temperature 98.5 F 98.3 F Pulse Rate 61 57 L 70 Respiratory Rate 18 17 Blood Pressure 115/58 L 113/56 L Pulse Oximetry 95 94 L 12/22/17 12:00 Temperature 97.8 F Pulse Rate 58 L Respiratory Rate 17 Blood Pressure 115/51 L Pulse Oximetry 92 L Intake & Output 12/21/17 12/22/17 12/22/17 18:59 06:59 18:59 Intake Total 450 / 450 360 / 360 Balance 450 / 450 360 / 360 Weight 63.1 kg Intake: Oral 450 / 450 360 / 360 Other: # Voids 5 2 Date of Last Bowel Movement 12/21/17 # Bowel Movements 0 Narrative: GENERAL: 62-year-old female sitting up in bed. HEAD: Normocephalic. ENT: No nasal bleeding or discharge. Mucous membranes pink and moist. NECK: Trachea midline. No JVD. CARDIOVASCULAR: Regular rate and rhythm. RESPIRATORY: Lungs are clear and diminished to auscultation bilaterally. GASTROINTESTINAL: BS + x 4 quads. Abdomen soft, non-tender, nondistended. Midline abdominal incision open to air, bradford intact without erythema. MUSCULOSKELETAL: Extremities without cyanosis, or edema. Left upper extremity with contracted. PEREIRA. LEFT CKS in place. + perfused. NEUROLOGICAL: Awake and alert. Normal speech. - Urinary Catheter Management Indwelling Urethral Catheter Cath placed during this visit: yes, but has since been removed by the nurse Reason for continuing: Hourly intake/output Insertion date: 12/09/17 Insertion time: 14:00 Removal date: 12/11/17 Assessment and Plan - Plan [place]: Knocked out of her wheelchair and hit the floor. No LOC. INJURIES: LEFT adrenal gland contusion Grade III splenic laceration PMHx: COPD, CHF, CVA w/ left hemiparesis. tobacco use, 2L O2 dependent Procedures: 12/03: Angiogram, embolization of the lower branches of splenic artery w/ coils and Gelfoam 12/09: Transferred back to ICU and intubated for resp distress 12/09: Exploratory laparotomy, splenectomy and abdominal washout. 12/11: Extubated 12/17: Left CT placed by IR 8/2: Bronchoscopy LEFT adrenal gland contusion, Grade III splenic laceration Supportive care 12/03: Angiogram, embolization of the lower branches of splenic artery w/ coils and Gelfoam 12/07: Repeat CT abdomen pelvis done without IV contrast due to iodine allergy. CT abdomen pelvis shows stable free fluid in the abdomen 12/09: Transferred back to ICU and intubated for resp distress 12/09: RIJ TLC placement 12/09: Exploratory laparotomy, splenectomy and abdominal washout. 12/11: Extubated Hgb stable Tele Pain control Bowel regimen OOB- PT/OT ordered Lovenox Meningococcal and Prevnar 13 vaccines administered today She will need an influenza vaccine when it becomes available this year-patient informed Abdominal staple removal in 4 days Wash abdominal incision daily with soap and water, leave open to air Respiratory failure post trauma, tobacco use, COPD, Pleural effusion, Occlusion of left bronchus 12/09: Transferred back to ICU and intubated for resp distress 12/11: Extubated 12/16: CT chest shows increasing left pleural effusion 12/17: Left CT placed by IR 8/2: Bronchoscopy 12/21: LEFT CT removed Afebrile CXR today shows no PTX post CT-removal Encourage pulmonary toileting OOB-PT and OT ordered HTN Clonidine patch 0.2mg Lopressor 25mg BID Hydralazine 25mg q6h Enalaprilat 1.25mg IV q6h PRN BP better F/U with Trauma office in 2 weeks Plan of care discussed with patient at bedside. Collaborating Trauma surgeon agrees with plan. Case management consulted to assist with discharge planning. Patient is clear from Trauma surgery to safely discharge to SNF. <Edvin Hernandes - Last Filed: 12/23/17 11:16> Physical Exam Vital signs: Vital Signs 12/22/17 12:00 12/22/17 16:00 12/22/17 20:00 Temperature 97.8 F 98.0 F 99.1 F Pulse Rate 58 L 63 55 L Respiratory Rate 17 17 20 Blood Pressure 115/51 L 107/56 L 100/55 L Pulse Oximetry 92 L 92 L 94 L 12/23/17 00:00 12/23/17 04:00 12/23/17 08:00 Temperature 98.5 F 99.2 F 97.9 F Pulse Rate 56 L 63 73 Respiratory Rate 18 18 17 Blood Pressure 109/53 L 118/58 L 107/50 L Pulse Oximetry 98 93 L 91 L Intake & Output 12/22/17 12/23/17 12/23/17 18:59 06:59 18:59 Intake Total 300 / 300 480 / 480 Balance 300 / 300 480 / 480 Weight 63.8 kg Intake: Oral 300 / 300 480 / 480 Other: # Voids 5 3 # Incontinent Voids 1 Date of Last Bowel Movement 12/21/17 12/23/17 # Bowel Movements 0 - Urinary Catheter Management Indwelling Urethral Catheter Cath placed during this visit: no Assessment and Plan - Attending Attestation The exam, history, and the medical decision-making described in the above note were completed with the assistance of the mid-level provider. I reviewed and agree with the findings presented. I attest that I had a [id number] encounter with the patient on the same day, and personally performed and documented my assessment and findings in the medical record.
[2017-12-22] MEDS: Temazepam 15 MG Capsule PO SCH (20:21)
[2017-12-23] MEDS: hydrALAZINE 25 MG Tablet PO SCH ×3 (00:45→12:52)
[2017-12-23] MEDS: Senna/Docusate Sodium 8.6/50 MG Tablet PO SCH (10:04)
[2017-12-23] MEDS: ALPRAZolam 0.5 MG Tablet PO SCH ×2 (10:04→12:53)
[2017-12-23] MEDS: Enoxaparin Inj 40 MG/0.4 ML Syringe SQ SCH (10:04)
[2017-12-23] MEDS: Methadone 10 MG Tablet PO SCH (10:06)
[2017-12-23] MEDS: Famotidine 20 MG Tablet PO SCH (10:07)
[2017-12-23] MEDS: Metoprolol Tartrate 25 MG Tablet PO SCH (10:07)
--- NOTE | 2017-12-23 12:20 | P.PN ---
Subjective Interval history: Trauma PTD: 20 Patient sitting up in bed. No distress noted. Patient states, "I am doing all right." Physical Exam Vital signs: Vital Signs 12/22/17 16:00 12/22/17 20:00 12/23/17 00:00 Temperature 98.0 F 99.1 F 98.5 F Pulse Rate 63 55 L 56 L Respiratory Rate 17 20 18 Blood Pressure 107/56 L 100/55 L 109/53 L Pulse Oximetry 92 L 94 L 98 12/23/17 04:00 12/23/17 08:00 Temperature 99.2 F 97.9 F Pulse Rate 63 73 Respiratory Rate 18 17 Blood Pressure 118/58 L 107/50 L Pulse Oximetry 93 L 91 L Intake & Output 12/22/17 12/23/17 12/23/17 18:59 06:59 18:59 Intake Total 300 / 300 480 / 480 Balance 300 / 300 480 / 480 Weight 63.8 kg Intake: Oral 300 / 300 480 / 480 Other: # Voids 5 3 # Incontinent Voids 1 Date of Last Bowel Movement 12/21/17 12/23/17 # Bowel Movements 0 Narrative: GENERAL: This is a 62 year old female sitting up in bed. No distress noted. SKIN: Warm and dry. HEAD: Atraumatic. Normocephalic. EYES: PERRLA ENT: No nasal bleeding or discharge. Mucous membranes pink and moist. NECK: Trachea midline. No JVD. CARDIOVASCULAR: Regular rate and rhythm. RESPIRATORY: No accessory muscle use. Lungs are clear to auscultation. Breath sounds equal bilaterally. No distress or dyspnea. Old left chest tube dressing in place. CDI. GASTROINTESTINAL: BS + x 4 quads. Abdomen soft, non-tender, nondistended. Midline abdominal incision, well approximated. REBECCA. MUSCULOSKELETAL: Extremities without cyanosis, or edema. Left arm contracted. + peripheral pulses x 4 extremities. Warm with good capillary refill and sensation. MAEW. NEUROLOGICAL: Awake and alert. Normal speech and pattern. - Urinary Catheter Management Indwelling Urethral Catheter Cath placed during this visit: yes, but has since been removed by the nurse Reason for continuing: Hourly intake/output Insertion date: 12/09/17 Insertion time: 14:00 Removal date: 12/11/17 Results - Labs CBC & Chem 7: 12/19/17 04:32 12/19/17 04:32 Assessment and Plan - Plan [place]: This is a 62 year old female who sustained a fall. She states she was at the methadone where she was knocked out of her wheelchair and she fell. Injuries: Left adrenal gland contusion Splenic laceration with hemorrhage Left old rib fractures (multiple) PMHx: PMHx: COPD, CHF, CVA w/ left hemiparesis. tobacco use. Procedures: 12/03: Angiogram, embolization of the lower branches of splenic artery w/ coils and gelfoam 12/09: Transferred back to ICU and intubated for resp distress 12/09: Exploratory laparotomy, splenectomy and abdominal washout. 12/11: Extubated 12/17: CT-guided LEFT CT placement 12/19: BRONCHOSCOPY - L bronchus occluded. 12/21: LEFT CT removed Consults: Case management Diet: Regular diet. Tolerating po diet. Encourage good po intake with each meal. Pulmonary: O2 nasal cannula 4 L. Encourage good pulmonary toileting. IS at bedside and pt encouraged to use. Rationale for use explained to patient, and verbalized understanding. PAIN Management: Methadone 170mg QD. ATIVAN 0.5 mg TID (home meds) Activity: OOB. PT and OT ordered. GI prophylaxis: Pepcid 20 mg BID po. Bowel regimen: Bouchra-Colace. MOM. Lactulose PRN. Senna PRN. Bisacodyl PRN. LBM: 12/21. DVT prophylaxis: Mechanical VTE with SCDs. Chemical management with Lovenox 40 mg daily. DC Planning: Case management consulted for assistance with final discharge disposition. Patient has an active discharge order, and may discharge to SNF once patient is accepted. Emotional support provided to patient at bedside and plan of care discussed. Discussed with RN at bedside during rounds. Discussed pt condition and plan of care with collaborating trauma surgeon. Patient is hemodynamically stable and managed on the med/surg floor. The trauma team will round each day, and evaluate plan of care on a daily basis. LEFT adrenal gland contusion Grade III splenic laceration Supportive care 12/03: Angiogram, embolization of the lower branches of splenic artery w/ coils and Gelfoam 12/09: Exploratory laparotomy, splenectomy and abdominal washout. 12/07: Repeat CT abdomen pelvis done without IV contrast due to iodine allergy. CT abdomen pelvis shows stable free fluid in the abdomen Trend H&H H&H = 9.7 .4 Does not meet transfusion triggers at this time Monitor s/s of bleeding Pain management Bowel regimen Lovenox for DVT prophylaxis 12/22: Post-splenectomy vaccines given Respiratory failure post trauma Smoker COPD Pleural effusion Occlusion of left bronchus 12/09: Transferred back to ICU and intubated for resp distress 12/09: Exploratory laparotomy, splenectomy and abdominal washout. 12/11: Extubated CXR shows LEFT hemithorax opacity w/ possible loculated fluid. 12/16: CT chest shows increasing left pleural effusion 12/17: Left CT placed by IR 12/19: BRONCHOSCOPY - L bronchus occluded. 12/21: LEFT CT removed Encourage pulmonary toileting NT suction as needed Encourage out of bed PT and OT ordered HTN Vitals every 4 hours and PRN Clonidine patch 0.2mg - DC due to hypotension Lopressor 25mg BID Hydralazine 25mg q6h Enalaprilat 1.25mg q6h PRN - Attending Attestation The exam, history, and the medical decision-making described in the above note were completed with the assistance of the mid-level provider. I reviewed and agree with the findings presented. I attest that I had a [id number] encounter with the patient on the same day, and personally performed and documented my assessment and findings in the medical record.
--- NOTE | 2017-12-24 20:09 | P.DS ---
Date of admission: 12/03/17 12:31 Primary care physician: UNKNOWN Anticipated date of discharge: 12/23/17 Brief History from admission: Fall. DS: Diagnosis - Discharge Diagnosis (1) Splenic laceration Status: Acute DS: Medications - Discharge Medications Prescriptions: alprazolam [Xanax] 0.5 mg PO TID #6 tab DS: Summary Hospital Course: [place]: This is a 62 year old female who sustained a fall. She states she was at the methadone where she was knocked out of her wheelchair and she fell. Injuries: Left adrenal gland contusion Splenic laceration with hemorrhage Left old rib fractures (multiple) PMHx: PMHx: COPD, CHF, CVA w/ left hemiparesis. tobacco use. Procedures: 12/03: Angiogram, embolization of the lower branches of splenic artery w/ coils and gelfoam 12/09: Transferred back to ICU and intubated for resp distress 12/09: Exploratory laparotomy, splenectomy and abdominal washout. 12/11: Extubated 12/17: CT-guided LEFT CT placement 12/19: BRONCHOSCOPY - L bronchus occluded. 12/21: LEFT CT removed Consults: Case management The patient is now tolerating a po diet. Eating and drinking well. Pain is being managed well with PO pain medications, patient will continue methadone treatment from the methadone clinic. (NO driving while taking narcotic pain medication enforced to patient.) Pt is having regular bowel movements, and have recommended to patient to continue with stool softeners while taking narcotic pain medications to prevent constipation. Pt has been participating in PT and OT while admitted at [facility] and has been ambulating with their assistance and independently. PT recommends rehab. Patient will return to SNF. All follow up appointments have been provided and discussed with the patient. It is recommended that the patient keeps all his follow up appointments for continued recovery. Patient's condition and plan of care discussed with collaborating trauma surgeon. He is agreeable to plan for discharge today. Therefore, the patient is stable to be safely discharged home from a trauma surgery standpoint. Thank you for allowing us to participate in his care. We wish Bridget the best in his recovery. LEFT adrenal gland contusion Grade III splenic laceration Supportive care 12/03: Angiogram, embolization of the lower branches of splenic artery w/ coils and Gelfoam 12/09: Exploratory laparotomy, splenectomy and abdominal washout. 12/07: Repeat CT abdomen pelvis done without IV contrast due to iodine allergy. CT abdomen pelvis shows stable free fluid in the abdomen Trend H&H H&H = 9.7 / 29.4 Does not meet transfusion triggers at this time Monitor s/s of bleeding Pain management Bowel regimen Lovenox for DVT prophylaxis 12/22: Post-splenectomy vaccines given Respiratory failure post trauma Smoker COPD Pleural effusion Occlusion of left bronchus 12/09: Transferred back to ICU and intubated for resp distress 12/09: Exploratory laparotomy, splenectomy and abdominal washout. 12/11: Extubated CXR shows LEFT hemithorax opacity w/ possible loculated fluid. 12/16: CT chest shows increasing left pleural effusion 12/17: Left CT placed by IR 12/19: BRONCHOSCOPY - L bronchus occluded. 12/21: LEFT CT removed Encourage pulmonary toileting NT suction as needed Encourage out of bed PT and OT ordered HTN Vitals every 4 hours and PRN Clonidine patch 0.2mg - DC due to hypotension Lopressor 25mg BID Hydralazine 25mg q6h Enalaprilat 1.25mg q6h PRN - Time Spent with Patient Total time spent providing and/or coordinating discharge services: Greater than 30 minutes - Quality: VTE Deep Vein Thrombosis/Pulmonary Embolism Present on Admission: No Results Procedures completed during hospitalization: . Completed studies during hospitalization: Pending at discharge 12/09/17 07:58 Surgical [PTH] Routine Labs on day of discharge: Preliminary micro results at discharge 12/19/17 13:49 Fungal Culture - Preliminary Bronchial Washings - Left Yeast species - Impressions ITS Impressions Splenic Arteriogram 12/03/17 00:00 CONCLUSION: 1. Splenic laceration with multiple pseudoaneurysms in the lower pole as detailed above. 2. Successful coil and Gelfoam branch vessel embolization of multiple lower pole branches feeding the pseudoaneurysms as detailed above. 3. Groin closure was utilized as the patient was unable to lie supine due to some post stroke contractions Ribs X-Ray 12/03/17 10:04 CONCLUSION: Negative examination. Shoulder X-Ray 12/03/17 10:04 CONCLUSION: Slight osteopenia. Cervical Spine CT 12/03/17 10:07 CONCLUSION: 1. Advanced degenerative changes within the cervical spine as above. No acute cervical fracture identified. Abdomen/Pelvis CT 12/07/17 00:00 CONCLUSION: 1. Noncontrast examination making direct comparison with the prior contrast study difficult especially in evaluating the spleen and adjacent fluid collections which are of similar density and difficult to separate. There is no definite gross change or acute hemorrhage. 2. Status post interval embolization with multiple coils in the region of the splenic hilar area. 3. Consolidation in the left lower lobe with small effusions. Chest CTA 12/09/17 00:00 CONCLUSION: 1. No evidence of pulmonary embolus. 2. Suspect additional interval splenic hemorrhage. Recommend CTA examination of the abdomen for further evaluation 3. Findings were reported to Dr. Boyd Head CT 12/09/17 00:00 CONCLUSION: 1. Negative noncontrast head CT. Liver Ultrasound 12/09/17 00:00 CONCLUSION: 1. Complex collection in the left upper quadrant which is contiguous with the spleen. This appears to represent the spleen and adjacent known hemorrhage. This is best evaluated and followed by CT. 2. Limited suboptimal examination. Chest CT 12/16/17 09:46 CONCLUSION: 1. Increasing left pleural effusion and new small right pleural effusion. 2. Increasing airspace disease left upper lobe and right lower lobe. 3. Postsurgical changes left upper quadrant of the abdomen following splenectomy. Chest Tube Insertion 12/17/17 11:20 CONCLUSION: 1. Uncomplicated chest tube placement as above. Chest X-Ray 12/22/17 00:00 CONCLUSION: Overall improved aeration of the left hemithorax. No visible pneumothorax. Discharge Plan - Discharge Disposition Patient Disposition: 03 Discharge to SNF - Discharge Condition Condition: Stable - Discharge Order Discharge Orders: Discharge Order (Routine); Ordered 12/22/17 Ordered By: Raymundo Jasso - Discharge Details Anticipated Discharge Date: 12/23/17 Discharge Comment: Pt is clear to DC to SNF once accepted - Physicians Team Primary Care Provider: UNKNOWN, Attending Provider: Lavonne Boyd Other Providers: Ralph Shelley MD ; Edvin Hernandes MD ; [facility] ; Evan Quintanilla MD ; Andreea Rubio ARNP ; David Winn MD ; Cari Garcia MD ; Lavonne Boyd MD ; Raymundo Jasso ARNP ; [facility]
== END 2017-12-23 18:23 ==
LOC: NEPD 09:03 → NEDA 12:31 → N07 17:24 → N03 20:42 → N07 12-04 14:36 → N03 12-09 13:28 → N07 12-12 20:56
PROVIDERS: ADMIT Surgery; ATTEND Surgery
PROC: SPLCTMY (ICD-10-PCS; 2017-12-09 18:58)

== ENCOUNTER 2018-02-05 10:35 | Inpatient (IN) ==
[2018-02-05] MEDS ORDERED: Sod Chloride 0.9% Inj 1,000 ML IV.SIG ONE (13:34)
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
[2018-02-05 14:20] LABS: Baso % (Auto) 0.2 % (0.0-2.0); Hematocrit 41.6 % (35.0-46.0); Hemoglobin 13.6 gm/dL (11.6-15.3); Lymph # (Auto) 2.9 th/mm3 (1.0-4.8); Lymph % (Auto) 15.5 % (9.0-44.0); Mean Corpuscular HGB Conc 32.8 % (32.0-36.0); Mean Corpuscular Volume 85.3 fL (80.0-100.0); Mean Platelet Volume 9.9 fL (7.0-11.0); Mono # (Auto) 1.1 th/mm3 (0.0-0.9); Mono % (Auto) 5.7 % (0.0-8.0); Neut # (Auto) 14.6 th/mm3 (1.8-7.7); Neut % (Auto) 78.6 % (16.0-70.0); Platelet Count 282 th/mm3 (150-450); Red Blood Count 4.88 mil/mm3 (4.00-5.30); Red Cell Distribution Width 16.8 % (11.6-17.2); White Blood Count 18.6 th/mm3 (4.0-11.0)
[2018-02-05 14:31] LABS: Bacteria,Urine Many /hpf; Clarity,Urine Cloudy (Clear); Color,Urine Amber (Yellw/Straw); Glucose,Urine (UA) Negative (Negative); Leukocyte Esterase,Urine Moderate (Negative); Mucus,Urine Many /lpf (Occasional); Nitrite,Urine Positive (Negative); Specific Gravity,Urine 1.025 (1.002-1.035); Squamous Epithelial Cell,Urine 3 /hpf (0-5); Urobilinogen,Urine 4 or Greater mg/dL (Less than 2)
[2018-02-05 14:35] LABS: Bilirubin,Urine Negative (Negative); Ictotest,Urine Negative (Negative)
[2018-02-05 14:38] LABS: Alanine Aminotransferase 13 U/L (10-53); Albumin 3.2 g/dL (3.4-5.0); Anion Gap 8 meq/L (5-15); Aspartate Aminotransferase 17 U/L (15-37); Blood Urea Nitrogen 19 mg/dL (7-18); Calcium 8.6 mg/dL (8.5-10.1); Carbon Dioxide 26.4 meq/L (21.0-32.0); Chloride 100 meq/L (98-107); Glomerular Filtration Rate 54 mL/min (>89); Glucose,Random 92 mg/dL (74-106); Lipase 90 U/L (73-393); Potassium 3.9 meq/L (3.5-5.1); Sodium 134 meq/L (136-145)
[2018-02-05 14:40] LABS: Alkaline Phosphatase 105 U/L (45-117); Total Protein 8.2 g/dL (6.4-8.2)
[2018-02-05] MEDS ORDERED: Ciprofloxacin 400 MG/200 ML 400 MG/200 ML PIGGYBACK IV.SIG ONE (15:25)
[2018-02-05] MEDS ORDERED: Promethazine 25 MG Supp RECTAL PRN (17:40)
[2018-02-05] MEDS ORDERED: Naloxone Inj 0.4 MG/ML Vial IV.PUSH PRN (17:41)
[2018-02-05] MEDS ORDERED: Morphine Sulfate Inj 2 MG/ML Vial IV.PUSH PRN (17:41)
[2018-02-05] MEDS ORDERED: Morphine Inj 4 MG/ML Vial IV.PUSH PRN ×2 (17:41)
[2018-02-06] MEDS: Sod Chloride 0.9% Inj 1,000 ML IV.CONT SCH ×5 (01:01→19:52)
[2018-02-06] MEDS: Ciprofloxacin 400 MG/200 ML 400 MG/200 ML PIGGYBACK IV.SIG SCH ×2 (04:19→15:32)
[2018-02-06 04:51] LABS: Baso # (Auto) 0.1 th/mm3 (0.0-0.2); Baso % (Auto) 0.6 % (0.0-2.0); Eos # (Auto) 0.1 th/mm3 (0.0-0.4); Eos % (Auto) 1.4 % (0.0-4.0); Hematocrit 35.6 % (35.0-46.0); Hemoglobin 11.8 gm/dL (11.6-15.3); Lymph # (Auto) 3.8 th/mm3 (1.0-4.8); Lymph % (Auto) 37.3 % (9.0-44.0); Mean Corpuscular HGB Conc 33.1 % (32.0-36.0); Mean Corpuscular Hemoglobin 28.5 pg (27.0-34.0); Mean Platelet Volume 10.3 fL (7.0-11.0); Mono # (Auto) 0.9 th/mm3 (0.0-0.9); Mono % (Auto) 8.3 % (0.0-8.0); Neut # (Auto) 5.4 th/mm3 (1.8-7.7); Neut % (Auto) 52.4 % (16.0-70.0); Platelet Count 227 th/mm3 (150-450); Red Blood Count 4.14 mil/mm3 (4.00-5.30); Red Cell Distribution Width 16.6 % (11.6-17.2); White Blood Count 10.3 th/mm3 (4.0-11.0)
[2018-02-06 05:35] LABS: Alanine Aminotransferase 10 U/L (10-53); Albumin 2.6 g/dL (3.4-5.0); Alkaline Phosphatase 82 U/L (45-117); Anion Gap 9 meq/L (5-15); Aspartate Aminotransferase 19 U/L (15-37); Blood Urea Nitrogen 14 mg/dL (7-18); Calcium 8.3 mg/dL (8.5-10.1); Chloride 107 meq/L (98-107); Glomerular Filtration Rate Greater Than 89 mL/min (>89); Glucose,Random 69 mg/dL (74-106); Potassium 3.4 meq/L (3.5-5.1); Sodium 140 meq/L (136-145); Total Protein 6.8 g/dL (6.4-8.2)
[2018-02-06] MEDS ORDERED: Diatrizoate Meglum/Diatrizoate Sod Liq 120 ML Bottle (for RAD diag) PO ONE (10:00)
[2018-02-06] MEDS: Methadone 10 MG Tablet PO SCH (12:34)
[2018-02-06] MEDS: Potassium Chlor 10 mEq Premix 10 MEQ/100 ML PIGGYBACK IV.SIG SCH ×2 (12:46→14:19)
--- NOTE | 2018-02-06 19:17 | ECG ---
Date Performed: 02/05/2018 Time Performed: 20:08:11 PTAGE: 63 years EKG: Sinus rhythm NORMAL ECG PREVIOUS TRACING : 01/06/2017 21.20 Since the previous tracing, no significant change noted DOCTOR: Will Zepeda Interpretating Date/Time 02/06/2018 19:16:31
[2018-02-07] MEDS: Ciprofloxacin 400 MG/200 ML 400 MG/200 ML PIGGYBACK IV.SIG SCH ×2 (04:00→19:16)
[2018-02-07] MEDS: Methadone 10 MG Tablet PO SCH (08:56)
[2018-02-07] MEDS: Sod Chloride 0.9% Inj 1,000 ML IV.CONT SCH ×3 (09:01→19:38)
[2018-02-08] MEDS: Ciprofloxacin 400 MG/200 ML 400 MG/200 ML PIGGYBACK IV.SIG SCH ×2 (04:00→15:14)
[2018-02-08] MEDS: Sod Chloride 0.9% Inj 1,000 ML IV.CONT SCH (05:16)
[2018-02-08] MEDS: Methadone 10 MG Tablet PO SCH (09:31)
== END 2018-02-08 21:13 | disposition home health service (06) ==
LOC: NEPC 10:35 → NEDA 16:27 → N06 17:06
PROVIDERS: ADMIT Hospitalist; ATTEND Hospitalist

== ENCOUNTER 2018-02-15 14:10 | Inpatient (IN) ==
[2018-02-15] MEDS ORDERED: Sod Chloride 0.9% Inj 1,000 ML IV.SIG ONE (15:22)
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
[2018-02-15] MEDS ORDERED: Diatrizoate Meglum/Diatrizoate Sod Liq 9 ML UDC ONE (16:04)
[2018-02-15 16:07] LABS: Baso # (Auto) 0.1 th/mm3 (0.0-0.2); Baso % (Auto) 1.8 % (0.0-2.0); Eos # (Auto) 0.3 th/mm3 (0.0-0.4); Eos % (Auto) 3.3 % (0.0-4.0); Hematocrit 41.8 % (35.0-46.0); Hemoglobin 13.5 gm/dL (11.6-15.3); Lymph # (Auto) 3.8 th/mm3 (1.0-4.8); Lymph % (Auto) 48.3 % (9.0-44.0); Mean Corpuscular HGB Conc 32.3 % (32.0-36.0); Mean Corpuscular Hemoglobin 27.8 pg (27.0-34.0); Mean Corpuscular Volume 86.1 fL (80.0-100.0); Mean Platelet Volume 9.8 fL (7.0-11.0); Mono # (Auto) 0.8 th/mm3 (0.0-0.9); Mono % (Auto) 10.2 % (0.0-8.0); Neut # (Auto) 2.9 th/mm3 (1.8-7.7); Neut % (Auto) 36.4 % (16.0-70.0); Platelet Count 298 th/mm3 (150-450); Red Blood Count 4.85 mil/mm3 (4.00-5.30); Red Cell Distribution Width 17.1 % (11.6-17.2); White Blood Count 7.9 th/mm3 (4.0-11.0)
[2018-02-15] MEDS ORDERED: Diatrizoate Meglum/Diatrizoate Sod Liq 9 ML UDC PO ONE (16:15)
[2018-02-15 16:34] LABS: Alanine Aminotransferase 13 U/L (10-53); Albumin 3.2 g/dL (3.4-5.0); Anion Gap 10 meq/L (5-15); Aspartate Aminotransferase 21 U/L (15-37); Blood Urea Nitrogen 9 mg/dL (7-18); Calcium 9.1 mg/dL (8.5-10.1); Carbon Dioxide 27.1 meq/L (21.0-32.0); Chloride 104 meq/L (98-107); Glomerular Filtration Rate 74 mL/min (>89); Glucose,Random 57 mg/dL (74-106); Lipase 75 U/L (73-393); Potassium 4.2 meq/L (3.5-5.1); Sodium 141 meq/L (136-145)
[2018-02-15 16:36] LABS: Alkaline Phosphatase 80 U/L (45-117); Total Protein 8.1 g/dL (6.4-8.2)
[2018-02-15 18:00] LABS: Amorphous Sediment,Urine Rare /hpf; Bacteria,Urine Rare /hpf; Bilirubin,Urine Negative (Negative); Clarity,Urine Hazy (Clear); Color,Urine Yellow (Yellw/Straw); Glucose,Urine (UA) Negative (Negative); Leukocyte Esterase,Urine Trace (Negative); Mucus,Urine Few /lpf (Occasional); Nitrite,Urine Negative (Negative); Specific Gravity,Urine 1.008 (1.002-1.035); Squamous Epithelial Cell,Urine 4 /hpf (0-5)
--- NOTE | 2018-02-15 19:17 | CT ---
EXAM DATE: 02/15/2018 4:04 PM EDT AGE/SEX: 63 years / Female INDICATIONS: Abdominal pain and nausea. CLINICAL DATA: This is the patient's initial encounter. Patient reports that signs and symptoms have been present for 1 day and indicates a pain score of 7/10. MEDICAL/SURGICAL HISTORY: Chronic obstructive pulmonary disease. Cerebrovascular disease. Sple nectomy. RADIATION DOSE: 10.75 CTDI (mGy) COMPARISON: [facility] [place] ABDOMEN & PELVIS W/O CONTRAST, 02/05/2018. . TECHNIQUE: Multiple contiguous axial images were obtained through the abdomen. Images were obtained using multiple row detector helical technique. Using automated exposure control and adjustment of the mA and/or kV according to patient size, radiation dose was kept as low as reasonably achievable to o btain optimal diagnostic quality images. DICOM format image data is available electronically for rev iew and comparison. FINDINGS: Lower Lungs: Interval development of subsegmental consolidation in the left lower lung. Stable calcif ied granuloma right middle lobe and calcified right hilar nodes.. Liver: The liver has a homogeneous density without space-occupying lesion for noncontrast technique. There is no dilation of the biliary tree. No calcified gallstones. Spleen: Splenectomy. Pancreas: Unremarkable without mass or calcification. Kidneys: Normal in size and shape. No evidence of mass or hydronephrosis. Adrenal Glands: Unremarkable. Aorta: The aorta and proximal iliac vessels are grossly unremarkable without aneurysmal dilation. Bowel/Mesentery: Diffusely dilated loops of small bowel with air-fluid levels and bowel loops measur ing up to 4 cm in dimension. Oral contrast was given and passes into the proximal one third small bow el. There is also dense contrast in the colon from prior CT. The degree of distention of bowel loops is similar to the CT scan on 02/05/2018. Abdominal Wall: Intact. Retroperitoneum: No evidence of adenopathy in the retrocrural, para-aortic, or deep pelvic regions. Bladder: Contours are smooth. Reproductive Organs: No abnormal masses or calcifications seen. Inguinal: The inguinal region is unremarkable without evidence of adenopathy. Bony Structures: Unremarkable. CONCLUSION: 1. Diffusely dilated loops of small bowel with air-fluid levels, similar in severity to 02/05/2018. O ral contrast only passes one third of the way through the small bowel. 2. Interval development of subsegmental consolidation left lower lobe. Electronically signed by: Rajat Tejeda MD 02/15/2018 7:16 PM EDT
[2018-02-15] MEDS ORDERED: Acetaminophen 325 MG Tablet PO PRN (19:52)
[2018-02-15] MEDS ORDERED: Bisacodyl 10 MG Supp RECTAL PRN (19:52)
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
[2018-02-15] MEDS ORDERED: Sod Chloride 0.9% Inj 1,000 ML IV.CONT SCH (20:00)
[2018-02-15] MEDS ORDERED: Morphine Inj 4 MG/ML Vial IV.PUSH PRN ×2 (20:03)
[2018-02-15] MEDS: Senna/Docusate Sodium 8.6/50 MG Tablet PO SCH (22:39)
[2018-02-16] MEDS: Dextrose 5%/NaCl 0.45% Inj 1,000 ML IV.CONT SCH ×2 (05:24→16:44)
[2018-02-16 05:32] LABS: Baso # (Auto) 0.1 th/mm3 (0.0-0.2); Baso % (Auto) 0.6 % (0.0-2.0); Eos # (Auto) 0.2 th/mm3 (0.0-0.4); Eos % (Auto) 2.2 % (0.0-4.0); Hemoglobin 11.9 gm/dL (11.6-15.3); Lymph % (Auto) 37.3 % (9.0-44.0); Mean Corpuscular HGB Conc 32.2 % (32.0-36.0); Mean Corpuscular Hemoglobin 27.8 pg (27.0-34.0); Mean Corpuscular Volume 86.1 fL (80.0-100.0); Mean Platelet Volume 9.5 fL (7.0-11.0); Mono # (Auto) 0.6 th/mm3 (0.0-0.9); Mono % (Auto) 7.8 % (0.0-8.0); Neut # (Auto) 4.2 th/mm3 (1.8-7.7); Neut % (Auto) 52.1 % (16.0-70.0); Platelet Count 266 th/mm3 (150-450); Red Cell Distribution Width 16.5 % (11.6-17.2); White Blood Count 8.1 th/mm3 (4.0-11.0)
[2018-02-16 06:14] LABS: Alanine Aminotransferase 10 U/L (10-53); Albumin 2.5 g/dL (3.4-5.0); Alkaline Phosphatase 63 U/L (45-117); Anion Gap 10 meq/L (5-15); Aspartate Aminotransferase 15 U/L (15-37); Blood Urea Nitrogen 7 mg/dL (7-18); Carbon Dioxide 25.8 meq/L (21.0-32.0); Chloride 106 meq/L (98-107); Glomerular Filtration Rate Greater Than 89 mL/min (>89); Glucose,Random 57 mg/dL (74-106); Potassium 3.9 meq/L (3.5-5.1); Sodium 142 meq/L (136-145); Total Protein 6.5 g/dL (6.4-8.2)
[2018-02-16] MEDS: Senna/Docusate Sodium 8.6/50 MG Tablet PO SCH ×2 (08:27→20:29)
--- NOTE | 2018-02-16 09:46 | P.PN ---
Subjective Interval history: This is a pleasant 63 y/o Female with COPD, history of CVA/TBI with left sided deficit, h/o Splenectomy and Opioid Dependence who presented to the ER w/ complaints of abdominal pain and constipation x9 days. Recent admit 02/05-02/08/18 for c/o abdominal pain, CT Abd/Pelvis at that time showing partial SBO, s/p eval by Surgery w/ no surgical intervention recommended, s/p Bactrim/Flagyl for UTI and suspected colitis. States she's had no bowel movement since being discharged. Normally has BM every 2-[address] Abdomen/Pelvis diffusely dilated loops of small bowel with air-fluid levels, similar to imaging from 02/05/2018, oral contrast passes one third the way to the small bowel, consolidation left lower Lung. 02/16: Seen in her bedroom, still wearing the NG tube at slow suction, discussed with nurse not yet seen by General Surgery following recommendations, no flatus, no BMs. Physical Exam Vital signs: Vital Signs 02/15/18 14:16 02/15/18 14:18 02/15/18 18:58 Temperature 97.6 F Pulse Rate 89 69 68 Respiratory Rate 20 12 16 Blood Pressure 106/63 139/92 H 142/73 H Pulse Oximetry 98 98 02/15/18 20:00 02/15/18 21:15 02/15/18 23:27 Temperature 98.1 F 98 F Pulse Rate 86 89 Respiratory Rate 16 14 18 Blood Pressure 175/77 H 146/75 H Pulse Oximetry 90 L 96 02/16/18 04:00 02/16/18 07:56 Temperature 98.7 F 98.5 F Pulse Rate 82 80 Respiratory Rate 18 14 Blood Pressure 158/68 H 153/72 H Pulse Oximetry 96 95 Intake & Output 02/15/18 02/16/18 02/16/18 18:59 06:59 18:59 Intake Total 1000 / 1000 1050 / 1050 0 / 0 Balance 1000 / 1000 1050 / 1050 0 / 0 Weight 57.153 kg 57.153 kg Intake: IV 1000 / 1000 1050 / 1050 NS Inj 1,000 ML @ 100 mls/hr IV 900 / 900 .CONT .Q10H [facility] Rx#:[id number] Levaquin 750 mg Premix Inj 150 150 / 150 ML @ 100 mls/hr IV.SIG Q24H [facility] Rx#:[id number] NS Inj 1,000 ML @ Wide Open IV. 1000 / 1000 SIG BOLUS ONE Rx#:[id number] Oral 0 / 0 Other: # Urine Diapers 1 Date of Last Bowel Movement 02/06/18 Weight On Admission 57.153 kg Narrative: GENERAL: Pleasant middle-aged white female in no acute distress. SKIN: Focused skin assessment warm and dry. HEENT: PERRLA, EOMI. No scleral icterus or conjunctival pallor. No lid lag or facial droop. CARDIOVASCULAR: Regular rate and rhythm. No obvious murmurs to auscultation. No chest tenderness to palpation. RESPIRATORY: No obvious rhonchi or wheezing. Clear to auscultation. Breath sounds equal bilaterally. GASTROINTESTINAL: Abdomen soft, mildly distended, generalized tenderness to palpation. BS normal. MUSCULOSKELETAL: Extremities without clubbing, cyanosis, or edema. No obvious deformities. NEUROLOGICAL: Awake, alert and oriented x4. No focal neurologic deficits. Moving both upper and lower extremities spontaneously. PSYCHIATRIC: Appropriate mood and affect. Insight and judgment normal. Results - Labs CBC & Chem 7: 02/16/18 04:35 02/16/18 04:35 Laboratory Results - last 24 hr 02/15/18 02/15/18 02/15/18 13:30 13:30 13:30 WBC 7.9 RBC 4.85 Hgb 13.5 Hct 41.8 MCV 86.1 MCH 27.8 MCHC 32.3 RDW 17.1 Plt Count 298 D MPV 9.8 Neut % (Auto) 36.4 Lymph % (Auto) 48.3 H [place] % (Auto) 10.2 H Eos % (Auto) 3.3 Baso % (Auto) 1.8 Neut # (Auto) 2.9 Lymph # (Auto) 3.8 [place] # (Auto) 0.8 Eos # (Auto) 0.3 Baso # (Auto) 0.1 WBC Differential . Differential Comment Auto diff final Sodium 141 Potassium 4.2 Chloride 104 Carbon Dioxide 27.1 Anion Gap 10 BUN 9 Creatinine 0.79 Estimated GFR 74 L POC Glucose Random Glucose 57 L Lactic Acid 0.8 Calcium 9.1 Total Bilirubin 0.3 AST 21 ALT 13 Alkaline Phosphatase 80 Total Protein 8.1 Albumin 3.2 L Lipase 75 Urine Color Urine Clarity Urine pH Ur Specific [place] Urine Protein Urine Glucose (UA) Urine Ketones Urine Occult Blood Urine Nitrate Urine Bilirubin Urine Urobilinogen Ur Leukocyte Esterase Urine RBC Urine WBC Ur Squamous Epith Cells Amorphous Sediment Urine Bacteria Urine Mucus Micro UA Comment Ur Microscopic Review Urine Culture Comments 02/15/18 02/16/18 02/16/18 17:20 04:33 04:35 WBC 8.1 RBC 4.30 Hgb 11.9 Hct 37.0 MCV 86.1 MCH 27.8 MCHC 32.2 RDW 16.5 Plt Count 266 MPV 9.5 Neut % (Auto) 52.1 Lymph % (Auto) 37.3 [place] % (Auto) 7.8 Eos % (Auto) 2.2 Baso % (Auto) 0.6 Neut # (Auto) 4.2 Lymph # (Auto) 3.0 [place] # (Auto) 0.6 Eos # (Auto) 0.2 Baso # (Auto) 0.1 WBC Differential . Differential Comment Auto diff final Sodium Potassium Chloride Carbon Dioxide Anion Gap BUN Creatinine Estimated GFR POC Glucose 62 L Random Glucose Lactic Acid Calcium Total Bilirubin AST ALT Alkaline Phosphatase Total Protein Albumin Lipase Urine Color Yellow Urine Clarity Hazy H Urine pH 6.0 Ur Specific [place] 1.008 Urine Protein Negative Urine Glucose (UA) Negative Urine Ketones Negative Urine Occult Blood Negative Urine Nitrate Negative Urine Bilirubin Negative Urine Urobilinogen Less than 2 Ur Leukocyte Esterase Trace H Urine RBC 1 Urine WBC 2 Ur Squamous Epith Cells 4 Amorphous Sediment Rare H Urine Bacteria Rare H Urine Mucus Few H Micro UA Comment Culture not ind Ur Microscopic Review Not Reportable Urine Culture Comments Culture not ind 02/16/18 02/16/18 04:35 06:53 WBC RBC Hgb Hct MCV MCH MCHC RDW Plt Count MPV Neut % (Auto) Lymph % (Auto) [place] % (Auto) Eos % (Auto) Baso % (Auto) Neut # (Auto) Lymph # (Auto) [place] # (Auto) Eos # (Auto) Baso # (Auto) WBC Differential Differential Comment Sodium 142 Potassium 3.9 Chloride 106 Carbon Dioxide 25.8 Anion Gap 10 BUN 7 Creatinine 0.63 Estimated GFR Greater than 89 POC Glucose 74 Random Glucose 57 L Lactic Acid Calcium 8.0 L D Total Bilirubin 0.3 AST 15 ALT 10 Alkaline Phosphatase 63 Total Protein 6.5 D Albumin 2.5 L D Lipase Urine Color Urine Clarity Urine pH Ur Specific [place] Urine Protein Urine Glucose (UA) Urine Ketones Urine Occult Blood Urine Nitrate Urine Bilirubin Urine Urobilinogen Ur Leukocyte Esterase Urine RBC Urine WBC Ur Squamous Epith Cells Amorphous Sediment Urine Bacteria Urine Mucus Micro UA Comment Ur Microscopic Review Urine Culture Comments - Imaging Impressions Abdomen/Pelvis CT 02/15/18 15:52 CONCLUSION: 1. Diffusely dilated loops of small bowel with air-fluid levels, similar in severity to 02/05/2018. Oral contrast only passes one third of the way through the small bowel. 2. Interval development of subsegmental consolidation left lower lobe. Assessment and Plan - Assessment (1) SBO (small bowel obstruction) Code(s): K56.609 - Unspecified intestinal obstruction, unspecified as to partial versus complete obstruction Status: Acute (2) PNA (pneumonia) Code(s): J18.9 - Pneumonia, unspecified organism Status: Acute (3) Opioid dependence Code(s): F11.20 - Opioid dependence, uncomplicated Status: Acute - Plan 1. SBO: Partial SBO, recent admit w/ CT Abd/Pelvis 02/05 showing partial SBO, now w/ ongoing complaints of abdominal pain and constipation x9 days. CT Abd/Pelvis w/ similar appearance, contrast passing only 1/3 way through small bowel, images reviewed. NPO, NGT, Consult Gen Sx, hold all PO meds for now , IVF for hydration. Reglan. 2. PNA: CT Abd/Pelvis w/ LLL consolidation, will start on Levaquin, DuoNeb prn as needed. 3. Opioid Dependence: On Methadone 170mg qd, confirmed on last admission, will hold for now in light of SBO, Morphine IV, resume Methadone once taking PO. 4. COPD non exacerbated, Bronchodilator PRN. DVT Prophylaxis: SCD/Teds Social work for d/c planning as needed. Code Status: Full Code. Discussed Condition With: Patient and nurse. Discharge Planning: Once cleared by General Surgery.
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
[2018-02-17] MEDS: Dextrose 5%/NaCl 0.45% Inj 1,000 ML IV.CONT SCH ×2 (03:15→12:18)
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
[2018-02-17] MEDS: Senna/Docusate Sodium 8.6/50 MG Tablet PO SCH (10:41)
--- NOTE | 2018-02-17 12:57 | P.PN ---
Subjective Interval history: Patient with small bowel obstruction. Patient seen and examined. Patient has had 2 large bowel movements. She is tolerating applesauce. She is asking to be restarted on her methadone. She states her belly feels much better. She denies any nausea or vomiting. She denies any abdominal pain. She denies any fever or chills. She denies any chest pain or shortness of breath. Physical Exam Vital signs: Vital Signs 02/16/18 16:00 02/16/18 20:00 02/17/18 00:00 Temperature 98.6 F 98.0 F 97.6 F Pulse Rate 82 85 92 H Respiratory Rate 16 19 17 Blood Pressure 146/73 H 168/85 H 189/85 H Pulse Oximetry 92 L 95 96 02/17/18 04:50 02/17/18 08:00 02/17/18 11:44 Temperature 98.1 F 98.2 F 97.9 F Pulse Rate 101 H 96 H 89 Respiratory Rate 22 16 18 Blood Pressure 172/90 H 178/80 H 162/80 H Pulse Oximetry 98 97 96 Intake & Output 02/16/18 02/17/18 02/17/18 18:59 06:59 18:59 Intake Total 1000 / 1000 1150 / 1150 Output Total 550 / 550 Balance 450 / 450 1150 / 1150 Weight 57.153 kg Intake: IV 1000 / 1000 1150 / 1150 D5W/1/2 NS Inj 1,000 ML @ 100 1000 / 1000 1000 / 1000 mls/hr IV.CONT .Q10H STEFAN Rx#: [id number] Levaquin 750 mg Premix Inj 150 150 / 150 ML @ 100 mls/hr IV.SIG Q24H STEFAN Rx#:[id number] Oral 0 / 0 0 / 0 Output: Gastric Drainage 550 / 550 Right Nare Nasogastric Tube 550 / 550 Other: # Urine Diapers 1 3 Date of Last Bowel Movement 02/06/18 02/17/18 # Bowel Movements 1 Narrative: GENERAL: WDWN female who appears older than stated age, no acute distress. Awake and alert. Appears comfortable, talking on the phone. SKIN: Warm and dry. HEAD: Atraumatic. Normocephalic. EYES: Pupils equal and round. No scleral icterus. No injection or drainage. ENT: No nasal bleeding or discharge. Mucous membranes pink and moist. NECK: Trachea midline. CARDIOVASCULAR: Regular rate and rhythm. RESPIRATORY: No accessory muscle use. Clear to auscultation. Breath sounds equal bilaterally. GASTROINTESTINAL: Abdomen soft, non-tender, nondistended. +BS. MUSCULOSKELETAL: Extremities without clubbing, cyanosis, or edema. No obvious deformities. NEUROLOGICAL: Awake and alert. No obvious cranial nerve deficits. Motor grossly within normal limits. Able to move all extremities spontaneously. Normal speech. PSYCHIATRIC: Calm and cooperative. Results - Labs CBC & Chem 7: 02/16/18 04:35 02/16/18 04:35 Laboratory Results - last 24 hr 02/17/18 03:24 POC Glucose 112 H Assessment and Plan - Assessment (1) SBO (small bowel obstruction) Code(s): K56.609 - Unspecified intestinal obstruction, unspecified as to partial versus complete obstruction Status: Acute (2) PNA (pneumonia) Code(s): J18.9 - Pneumonia, unspecified organism Status: Acute (3) Opioid dependence Code(s): F11.20 - Opioid dependence, uncomplicated Status: Acute - Plan 63-year-old female with a PMH of COPD, h/o CVA/TBI w/ Left-Sided Deficit, h/o Splenectomy and Opioid Dependence who presented to the ER w/ complaints of abdominal pain and constipation x9 days. SBO: Partial SBO, recent admit w/ CT Abd/Pelvis 02/05 showing partial SBO, now w / ongoing complaints of abdominal pain and constipation x9 days. CT Abd/Pelvis w/ similar appearance, contrast passing only 1/3 way through small bowel -Evaluated by general surgery, greatly appreciate assistance. Likely severe constipation secondary to dehydration and opioid dependence. Aggressive bowel regimen. No surgical intervention at this time. -Evaluated by Dr. Boyd, appreciate assistance, no surgical intervention. -Patient had 2 large bowel movements. No nausea, vomiting or abdominal pain. Will discontinue NG tube and start on full liquid diet. If patient is able to tolerate, will consider discharge later today. PNA: CT Abd/Pelvis w/ LLL consolidation -Continue on Levaquin -DuoNeb prn as needed Opioid Dependence: On Methadone 170mg qd, confirmed on last admission, will hold for now in light of SBO. -Continue morphine IV as needed -Discussed with zoe Bauman to give 1 IM dose of 10 mg methadone. Will not resume p.o. methadone while inpatient COPD: non exacerbated -Bronchodilator PRN -Continue to monitor respiratory status Patient able to tolerate diet Discharge patient to home Condition on discharge: Stable Heart healthy Diet as tolerated, continue full liquid diet, increase diet as tolerated slowly Ad Jany activity. Outpatient PT 3x wk x 4wk Rx written: Norvasc, Lactulose, Levaquin, Miralax, Bouchra Colace Follow-up with primary care physician Code Status: FULL Discussed Condition With: patient, nursing staff, Dr. Mike
[2018-02-17] MEDS ORDERED: Methadone Inj 10 MG/ML Vial IM ONE (15:00)
[2018-02-17] MEDS ORDERED: amLODIPine 5 MG Tablet PO SCH (15:00)
[2018-02-17 16:34] VITALS: BP 164/84; PULSE 84; RESP 16; TEMP 98.8; O2SAT 98
[2018-02-17] MEDS ORDERED: levoFLOXacin 750 MG Tablet PO SCH (20:00)
== END 2018-02-17 17:32 | disposition home or self-care (01) ==
LOC: NEDA 14:10 → NEPE 14:10 → OBSVTOIN 19:47 → NEPFCDU 20:41
PROVIDERS: ADMIT Hospitalist; ATTEND Hospitalist

== ENCOUNTER 2018-03-10 14:22 | Observation (INO) ==
[2018-03-10] MEDS ORDERED: Famotidine PF Inj 20 MG/2 ML Vial IV.PUSH ONE (16:15)
[2018-03-10] MEDS ORDERED: Sod Chloride 0.9% Inj 1,000 ML IV.SIG ONE (16:15)
[2018-03-10] MEDS ORDERED: HYDROmorphone PF Inj 2 MG/ML Vial IV.PUSH ONE (16:16)
[2018-03-10 16:31] LABS: Baso % (Auto) 0.3 % (0.0-2.0); Eos # (Auto) 0.1 th/mm3 (0.0-0.4); Eos % (Auto) 1.7 % (0.0-4.0); Hematocrit 42.4 % (35.0-46.0); Hemoglobin 13.7 gm/dL (11.6-15.3); Lymph # (Auto) 3.1 th/mm3 (1.0-4.8); Lymph % (Auto) 38.4 % (9.0-44.0); Mean Corpuscular HGB Conc 32.3 % (32.0-36.0); Mean Corpuscular Hemoglobin 27.9 pg (27.0-34.0); Mean Corpuscular Volume 86.2 fL (80.0-100.0); Mean Platelet Volume 8.9 fL (7.0-11.0); Mono # (Auto) 0.9 th/mm3 (0.0-0.9); Mono % (Auto) 11.1 % (0.0-8.0); Neut # (Auto) 3.9 th/mm3 (1.8-7.7); Neut % (Auto) 48.5 % (16.0-70.0); Platelet Count 323 th/mm3 (150-450); Red Blood Count 4.92 mil/mm3 (4.00-5.30); Red Cell Distribution Width 16.5 % (11.6-17.2)
--- NOTE | 2018-03-10 16:37 | ED ---
HPI General Chief Complaint: Abdominal Pain Stated Complaint: GI Complaint Time Seen by Provider: 03/10/18 16:03 Source: patient Mode of arrival: ambulatory Limitations: no limitations History of Present Illness HPI narrative: 3-year-old female with a history of TBI/CVA with left sided weakness, COPD, recent splenectomy, opioid dependence, presents to the emergency department complaining of abdominal pain and constipation since . Patient states that she had continuous abdominal pain constipation however, it worsened . She points to the mid abdominal region as to where she has pain and says it is intermittent and 10/10 in severity. Patient says it is aching. Denies palliative or provocative factors. Patient says she ate cereal this morning and was able to keep it down however, this was the first time since . She states that she has been vomiting food and water since . She denies fevers or chills. Denies hematochezia, melena , hematemesis. Related Data Home Medications Medication Instructions Recorded Confirmed methadone 170 mg PO DAILY 12/03/17 03/10/18 alprazolam [Xanax] 2 mg PO TID 02/05/18 03/10/18 dextroamphetamine-amphetamine 30 mg PO BID 02/05/18 03/10/18 [Adderall] temazepam [Restoril] 30 mg PO HS PRN 02/05/18 03/10/18 Previous Rx's Medication Instructions Recorded levofloxacin 750 mg PO DAILY #5 tab 02/17/18 Allergies Allergy/AdvReac Type Severity Reaction Status Date / Time iodine Allergy Severe SKIN Verified 12/03/17 10:07 BREAKOUT, SOB penicillin G Allergy Severe Shortness Verified 12/03/17 10:07 of Breath potassium iodide Allergy Severe SKIN Verified 12/03/17 10:07 BREAKOUT, SOB povidone-iodine Allergy Severe SKIN Verified 12/03/17 10:07 BREAKOUT, SOB sodium iodide Allergy Severe SKIN Verified 12/03/17 10:07 BREAKOUT, SOB sodium iodide Allergy Severe SKIN Verified 12/03/17 10:07 BREAKOUT, SOB Review of Systems ROS: all other systems reviewed are negative [facility] Medical History Medical History CHF (congestive heart failure) (Acute) COPD (chronic obstructive pulmonary disease) (Acute) History of CVA (cerebrovascular accident) (Acute) Surgical History Surgical History H/O splenectomy (Acute) Social History Social History Substance History: No History of Abuse Second Hand Smoke Exposure: Yes Smoking Status: Current every day smoker Tobacco Type: Cigarettes How Often Do You Have a Drink Containing Alcohol: Never Recent Travel in [facility] within the Last 8 Weeks: No Recent Out of Country Travel within the Last 8 Weeks: No Immunization History Tetanus Immunization: Unsure Exam Narrative Exam Narrative: GENERAL: WD, WN in NAD SKIN: Focused skin assessment warm/dry. HEAD: Atraumatic. Normocephalic. EYES: Pupils equal and round. No scleral icterus. No injection or drainage. ENT: No nasal bleeding or discharge. Mucous membranes pink and moist. NECK: Trachea midline. No JVD. no lymphadenopathy CARDIOVASCULAR: Regular rate and rhythm. No murmur appreciated. RESPIRATORY: No accessory muscle use. Clear to auscultation. Breath sounds equal bilaterally. GASTROINTESTINAL: Abdomen rigid, no distention, hypoactive to absent bowel sounds, TTP to abdomen diffusely MUSCULOSKELETAL: No obvious deformities. No clubbing. No cyanosis. No edema. left hand- contractures with minimal movement of left arm. NEUROLOGICAL: Awake and alert. No obvious cranial nerve deficits. Motor grossly within normal limits. Normal speech. PSYCHIATRIC: Appropriate mood and affect; insight and judgment normal. Course Initial Documented Vital Signs Temperature 97.8 F 03/10/18 14:36 Pulse Rate 99 H 03/10/18 14:36 Respiratory Rate 16 03/10/18 14:36 Blood Pressure 134/77 03/10/18 14:36 Pulse Oximetry 96 03/10/18 14:36 Last Documented Vital Signs Temperature 97.8 F 03/10/18 14:36 Pulse Rate 82 03/10/18 19:31 Respiratory Rate 18 03/10/18 19:31 Blood Pressure 136/83 03/10/18 19:31 Pulse Oximetry 94 L 03/10/18 19:31 Medical Decision Making MDM Narrative Medical decision making narrative: 63-year-old female presents to the emergency department for evaluation of persistent abdominal pain that worsened over the last couple of days. Patient states that her last bowel movement was . She says her pain is 10/10 and points to the midepigastric region. She says she has been vomiting after eating but was able to keep down Cheerios this morning. Labs were ordered for pain patient. Pepcid, Dilaudid, 1 L normal saline, Zofran administered. Patient's labs are stable, similar from her labs done earlier this month. CT abdomen pelvis performed without IV contrast because of her allergy to contrast. Demonstrates diffusely dilated small bowel loops, unchanged from prior. Patient states her last bowel movement was . She continues to have abdominal pain that is worsened throughout the day. I believe she would benefit from bowel rest and admission for observation to ensure resolution. I spoke with Dr. Fine who agreed to the admission. Medical Screen Exam Complete: Yes Emergency Medical Condition: Yes Differential Diagnosis Differential Diagnosis: appendicitis, urinary tract infection, Constipation, SBO, Lab Data Result diagrams: 03/10/18 16:25 03/10/18 16:25 Lab Results 03/10/18 03/10/18 03/10/18 Range/Units 16:25 16:25 16:25 WBC 8.0 (4.0-11.0) th/mm3 RBC 4.92 (4.00-5.30) mil/mm3 Hgb 13.7 (11.6-15.3) gm/dL Hct 42.4 (35.0-46.0) % MCV 86.2 (80.0-100.0) fL MCH 27.9 (27.0-34.0) pg MCHC 32.3 (32.0-36.0) % RDW 16.5 (11.6-17.2) % Plt Count 323 (150-450) th/mm3 MPV 8.9 (7.0-11.0) fL Neut % (Auto) 48.5 (16.0-70.0) % Lymph % (Auto) 38.4 (9.0-44.0) % [place] % (Auto) 11.1 H (0.0-8.0) % Eos % (Auto) 1.7 (0.0-4.0) % Baso % (Auto) 0.3 (0.0-2.0) % Neut # (Auto) 3.9 (1.8-7.7) th/mm3 Lymph # (Auto) 3.1 (1.0-4.8) th/mm3 [place] # (Auto) 0.9 (0.0-0.9) th/mm3 Eos # (Auto) 0.1 (0.0-0.4) th/mm3 Baso # (Auto) 0.0 (0.0-0.2) th/mm3 WBC Differential . Differential Comment Auto diff final PT 10.6 (9.8-11.6) sec INR 1.0 Ratio APTT 27.5 (24.3-30.1) sec Sodium 139 (136-145) meq/L Potassium 4.0 (3.5-5.1) meq/L Chloride 101 (98-107) meq/L Carbon Dioxide 29.1 (21.0-32.0) meq/L Anion Gap 9 (5-15) meq/L BUN 19 H (7-18) mg/dL Creatinine 0.83 (0.50-1.00) mg/dL Estimated GFR 70 L (>89) mL/min Random Glucose 90 (74-106) mg/dL Calcium 8.9 (8.5-10.1) mg/dL Total Bilirubin 0.4 (0.2-1.0) mg/dL AST 20 (15-37) U/L ALT 14 (10-53) U/L Alkaline Phosphatase 103 (45-117) U/L Total Protein 8.3 H (6.4-8.2) g/dL Albumin 3.1 L (3.4-5.0) g/dL Lipase 58 L (73-393) U/L Imaging Data Radiologist's impression: Abdomen/Pelvis CT 03/10/18 16:15 CONCLUSION: 1. Diffusely dilated small bowel loops, unchanged from prior. Stool-filled colon possibly representing an element of constipation/hypodynamic ileus. 2. No pneumoperitoneum. No significant change from prior. Discharge Plan Discharge Disposition Patient Disposition: 30 Still Patient Discharge Condition Condition: Stable Discharge Details Diagnosis: Ileus Physicians Team ED Provider: Helena Benson ED Midlevel Provider: Aurora Garcia Primary Care Provider: UNKNOWN, Attending Provider: Sruthi Fine Discharge Interventions Interventions: Vital Signs Last Done: 03/10/18 19:31 Status ED Status: Admitted Observation Patient
[2018-03-10 16:48] LABS: Activated Partial Thrombo Time 27.5 sec (24.3-30.1); Prothrombin Time 10.6 sec (9.8-11.6)
[2018-03-10 17:02] LABS: Albumin 3.1 g/dL (3.4-5.0); Anion Gap 9 meq/L (5-15); Aspartate Aminotransferase 20 U/L (15-37); Blood Urea Nitrogen 19 mg/dL (7-18); Calcium 8.9 mg/dL (8.5-10.1); Carbon Dioxide 29.1 meq/L (21.0-32.0); Chloride 101 meq/L (98-107); Glomerular Filtration Rate 70 mL/min (>89); Glucose,Random 90 mg/dL (74-106); Lipase 58 U/L (73-393); Sodium 139 meq/L (136-145)
[2018-03-10 17:03] LABS: Alanine Aminotransferase 14 U/L (10-53)
[2018-03-10 17:05] LABS: Alkaline Phosphatase 103 U/L (45-117); Total Protein 8.3 g/dL (6.4-8.2)
--- NOTE | 2018-03-10 18:42 | CT ---
EXAM DATE: 03/10/2018 6:13 PM EDT AGE/SEX: 63 years / Female INDICATIONS: Abdominal pain, nausea and vomiting. CLINICAL DATA: This is the patient's initial encounter. Patient reports that signs and symptoms have been present for 4 - 6 days and indicates a pain score of 5/10. MEDICAL/SURGICAL HISTORY: Chronic obstructive pulmonary disease. Stroke. Splenectomy. RADIATION DOSE: 9.33 CTDI (mGy) COMPARISON: [facility] [place] ABDOMEN & PELVIS W/O CONTRAST, 02/15/2018. . TECHNIQUE: Multiple contiguous axial images were obtained through the abdomen. Images were obtained using multiple row detector helical technique. Using automated exposure control and adjustment of the mA and/or kV according to patient size, radiation dose was kept as low as reasonably achievable to o btain optimal diagnostic quality images. DICOM format image data is available electronically for rev iew and comparison. FINDINGS: As seen previously, there are diffusely dilated small bowel loops throughout the abdomen. Colon is no ndistended but filled with stool throughout possibly representing a component of constipation. The re ctal vault is decompressed. No pneumoperitoneum. Stable granulomatous type changes in the right lung base. Mild bibasilar atelectatic changes. Dextros coliosis of the thoracolumbar spine with associated degenerative changes there may be a metallic coil mass in the left upper abdominal quadrant representing prior embolization. CONCLUSION: 1. Diffusely dilated small bowel loops, unchanged from prior. Stool-filled colon possibly representi ng an element of constipation/hypodynamic ileus. 2. No pneumoperitoneum. No significant change from prior. Electronically signed by: Kenneth Beckford MD 03/10/2018 6:40 PM EDT
[2018-03-10] MEDS ORDERED: Mineral Oil Enema 118 ML Bottle RECTAL ONE (20:16)
--- NOTE | 2018-03-10 20:28 | P.HP ---
History of Present Illness Service: [facility] Primary Care Physician: UNKNOWN History of Present Illness: 63-year-old female with past medical history significant for chronic pain and methadone use, congestive heart failure and COPD presents the emergency department for evaluation of abdominal pain times 5 days. The patient reports her last bowel movement was on . She denies any abdominal bloating/ swelling. No nausea/vomiting. She was able to eat breakfast this morning without incident. No chest pain or shortness of breath. No fevers/chills. No lateralizing signs/symptoms. Review of Systems All other systems reviewed negative except as stated in HPI PMFSH - History History Provided By: Patient - Medical History Medical History: Medical History (Last Updated 03/10/18 @ 20:22 by Sruthi Fine MD) CHF (congestive heart failure) COPD (chronic obstructive pulmonary disease) History of CVA (cerebrovascular accident) - Surgical History Surgical History: Surgical History (Last Updated 03/10/18 @ 20:22 by Sruthi Fine MD) H/O splenectomy - Family History Family History: Family History (Last Reviewed 02/15/18 @ 16:33 by MIKEY Gamino) Mother Healthy adult Father Healthy adult - Tobacco History Second Hand Smoke Exposure: Yes Tobacco Use In Past 30 Days: Yes Smoking Status: Current every day smoker Tobacco Type: Cigarettes - Alcohol History How Often Do You Have a Drink Containing Alcohol: Never - Substance Use History Substance History: No History of Abuse - Travel History Recent Travel in the [place] Within the Last 8 Weeks: No Recent Travel Out of the Country Within the Last 8 Weeks: No - Immunization History Tetanus Immunization: Unsure Medications and Allergies Active Medications: Active Medications Sodium Chloride (Ns Flush) 2 ml IV.FLUSH PRN PRN PRN Reason: FLUSH AFTER USING IV ACCESS Allergies Allergy/AdvReac Type Severity Reaction Status Date / Time iodine Allergy Severe SKIN Verified 12/03/17 10:07 BREAKOUT, SOB penicillin G Allergy Severe Shortness Verified 12/03/17 10:07 of Breath potassium iodide Allergy Severe SKIN Verified 12/03/17 10:07 BREAKOUT, SOB povidone-iodine Allergy Severe SKIN Verified 12/03/17 10:07 BREAKOUT, SOB sodium iodide Allergy Severe SKIN Verified 12/03/17 10:07 BREAKOUT, SOB sodium iodide Allergy Severe SKIN Verified 12/03/17 10:07 BREAKOUT, SOB Home Medications Medication Instructions Recorded Confirmed Type methadone 170 mg PO DAILY 12/03/17 03/10/18 History alprazolam [Xanax] 2 mg PO TID 02/05/18 03/10/18 History dextroamphetamine-amphetamine 30 mg PO BID 02/05/18 03/10/18 History [Adderall] temazepam [Restoril] 30 mg PO HS PRN 02/05/18 03/10/18 History Exam Vital signs: Vital Signs 03/10/18 14:36 03/10/18 19:31 Temperature 97.8 F Pulse Rate 99 H 82 Respiratory Rate 16 18 Blood Pressure 134/77 136/83 Pulse Oximetry 96 94 L Intake & Output 03/10/18 03/10/18 03/11/18 06:59 18:59 06:59 Intake Total 1000 / 1000 Balance 1000 / 1000 Weight 52.163 kg Intake: IV 1000 / 1000 NS Inj 1,000 ML @ Wide Open IV. 1000 / 1000 SIG BOLUS ONE Rx#:[id number] Narrative: Gen.: No acute distress Head: Normocephalic. Atraumatic. EENT: Pupils equal round and reactive to light. Nose without drainage. Airway intact. Throat without injection. Cardiovascular: Regular rate and rhythm. No murmurs, rubs or gallops. Respiratory: Lungs clear to auscultation bilaterally. No wheezes or rhonchi. Abdomen: Soft, diffusely tender to palpation, nondistended. No peritoneal signs. Hypoactive bowel sounds. Musculoskeletal: No gross deformities. No edema. Skin: No obvious rashes or erythema. Neuro: Sensory and motor grossly intact. Cranial nerves II through XII grossly intact. Results - Labs CBC & Chem 7: 03/10/18 16:25 03/10/18 16:25 Labs: Laboratory Results - last 24 hr 03/10/18 03/10/18 03/10/18 16:25 16:25 16:25 WBC 8.0 RBC 4.92 Hgb 13.7 Hct 42.4 MCV 86.2 MCH 27.9 MCHC 32.3 RDW 16.5 Plt Count 323 MPV 8.9 Neut % (Auto) 48.5 Lymph % (Auto) 38.4 [place] % (Auto) 11.1 H Eos % (Auto) 1.7 Baso % (Auto) 0.3 Neut # (Auto) 3.9 Lymph # (Auto) 3.1 [place] # (Auto) 0.9 Eos # (Auto) 0.1 Baso # (Auto) 0.0 WBC Differential . Differential Comment Auto diff final PT 10.6 INR 1.0 APTT 27.5 Sodium 139 Potassium 4.0 Chloride 101 Carbon Dioxide 29.1 Anion Gap 9 BUN 19 H Creatinine 0.83 Estimated GFR 70 L Random Glucose 90 Calcium 8.9 Total Bilirubin 0.4 AST 20 ALT 14 Alkaline Phosphatase 103 Total Protein 8.3 H Albumin 3.1 L Lipase 58 L - Imaging Impressions Abdomen/Pelvis CT 03/10/18 16:15 CONCLUSION: 1. Diffusely dilated small bowel loops, unchanged from prior. Stool-filled colon possibly representing an element of constipation/hypodynamic ileus. 2. No pneumoperitoneum. No significant change from prior. Caprini VTE Risk Assessment Caprini VTE Risk Assessment: Moderate/High Risk (score >= 2) Caprini Risk Assessment Model: Point Value = 1 Point Value = 2 Point Value = 3 Point Value = 5 Age 41-60 Minor surgery BMI > 25 kg/m2 Swollen legs Varicose veins or History of unexplained or recurrent spontaneous Oral contraceptives or hormone replacement Sepsis (< 1 month) Serious lung disease, including pneumonia (< 1 month) Abnormal pulmonary function Acute myocardial infarction Congestive heart failure (< 1 month) History of inflammatory bowel disease Medical patient at bed rest Age 61-74 Arthroscopic surgery Major open surgery (> 45 min) Laparoscopic surgery (> 45 min) Malignancy Confined to bed (> 72 hours) Immobilizing plaster cast Central venous access Age >= 75 History of VTE Family history of VTE Factor V Leiden Prothrombin [id number] Lupus anticoagulant Anticardiolipin antibodies Elevated serum homocysteine Heparin-induced thrombocytopenia Other congenital or acquired thrombophilia Stroke (< 1 month) Elective arthroplasty Hip, pelvis, or leg fracture Acute spinal cord injury (< 1 month) Prophylaxis Regimen: Total Risk Factor Score Risk Level Prophylaxis Regimen 0-1 Low Early ambulation 2 Moderate Order ONE of the following: *Sequential Compression Device (SCD) *Heparin 5000 units SQ BID 3-4 Higher Order ONE of the following medications: *Heparin 5000 units SQ TID *Enoxaparin/Lovenox 40 mg SQ daily (WT < 150 kg, CrCl > 30 mL/min) *Enoxaparin/Lovenox 30 mg SQ daily (WT < 150 kg, CrCl > 10-29 mL/min) *Enoxaparin/Lovenox 30 mg SQ BID (WT < 150 kg, CrCl > 30 mL/min) AND/OR *Sequential Compression Device (SCD) 5 or more Highest Order ONE of the following medications: *Heparin 5000 units SQ TID (Preferred with Epidurals) *Enoxaparin/Lovenox 40 mg SQ daily (WT < 150 kg, CrCl > 30 mL/min) *Enoxaparin/Lovenox 30 mg SQ daily (WT < 150 kg, CrCl > 10-29 mL/min) *Enoxaparin/Lovenox 30 mg SQ BID (WT < 150 kg, CrCl > 30 mL/min) AND *Sequential Compression Device (SCD) Assessment and Plan - Plan Assessment/plan: 1. Abdominal pain/constipation/? Ileus CT of the abdomen/pelvis shows diffusely dilated small bowel loops, unchanged from prior. Stool-filled colon possibly representing an element of constipation /hypodynamic ileus. Likely secondary to chronic opiate use N.p.o. Fleets enema Monitor closely, if symptoms do not improve consider general surgery consult 2. Chronic pain/opioid abuse Patient reports taking 170 mg of methadone daily Verify methadone dosing with methadone clinic in a.m. Continue methadone once verified 3. CHF/COPD Patient not on any home medications Echo on 04/09/16 showed an EF of 55-60% Gentle IV fluid hydration FEN N.p.o. Electrolytes: Monitor and replete as needed NS at 60 cc/hour Holding pharmacologic anticoagulation for possible general surgery consult
[2018-03-10] MEDS ORDERED: Sod Chloride 0.9% Inj 1,000 ML IV.CONT SCH (20:30)
[2018-03-11 07:33] LABS: Baso % (Auto) 0.8 % (0.0-2.0); Eos # (Auto) 0.2 th/mm3 (0.0-0.4); Eos % (Auto) 3.4 % (0.0-4.0); Hemoglobin 11.3 gm/dL (11.6-15.3); Lymph # (Auto) 2.5 th/mm3 (1.0-4.8); Lymph % (Auto) 43.3 % (9.0-44.0); Mean Corpuscular HGB Conc 32.2 % (32.0-36.0); Mean Corpuscular Hemoglobin 27.9 pg (27.0-34.0); Mean Corpuscular Volume 86.6 fL (80.0-100.0); Mean Platelet Volume 9.4 fL (7.0-11.0); Mono # (Auto) 0.7 th/mm3 (0.0-0.9); Mono % (Auto) 12.1 % (0.0-8.0); Neut # (Auto) 2.4 th/mm3 (1.8-7.7); Neut % (Auto) 40.4 % (16.0-70.0); Platelet Count 258 th/mm3 (150-450); Red Blood Count 4.04 mil/mm3 (4.00-5.30); Red Cell Distribution Width 16.7 % (11.6-17.2); White Blood Count 5.9 th/mm3 (4.0-11.0)
[2018-03-11 08:01] LABS: Anion Gap 7 meq/L (5-15); Blood Urea Nitrogen 15 mg/dL (7-18); Calcium 7.8 mg/dL (8.5-10.1); Carbon Dioxide 27.5 meq/L (21.0-32.0); Chloride 109 meq/L (98-107); Glomerular Filtration Rate Greater Than 89 mL/min (>89); Glucose,Random 51 mg/dL (74-106); Potassium 3.7 meq/L (3.5-5.1); Sodium 143 meq/L (136-145)
[2018-03-11] MEDS ORDERED: Dextrose 50% in Water 50 ML Vial IV.PUSH PRN (08:07)
[2018-03-11] MEDS: Dextrose 5% in Water Inj 1,000 ML IV.CONT SCH (08:57)
[2018-03-11] MEDS ORDERED: Acetaminophen 325 MG Tablet PO PRN (09:10)
[2018-03-11] MEDS: Senna/Docusate Sodium 8.6/50 MG Tablet PO SCH ×2 (13:38→20:33)
[2018-03-11] MEDS: Bisacodyl 10 MG Supp RECTAL PRN (13:39)
[2018-03-11] MEDS: Methadone 10 MG Tablet PO SCH (15:07)
--- NOTE | 2018-03-11 15:18 | P.PN ---
Subjective Interval history: Follow-up on patient with opioid-induced constipation. Patient seen and examined. Patient has not had a bowel movement as of yet. She denies any nausea or vomiting. She reports some diffuse abdominal discomfort. She denies any fever or chills. She denies any chest pain or shortness of breath. Patient states she had a similar episode several weeks ago. She reports her last bowel movement was which was 5 days ago. She is not passing flatus. Physical Exam Vital signs: Vital Signs 03/10/18 19:31 03/10/18 21:39 03/11/18 00:00 Temperature 98.6 F 97.7 F Pulse Rate 82 77 75 Respiratory Rate 18 19 16 Blood Pressure 136/83 164/74 H 137/64 Pulse Oximetry 94 L 96 94 L 03/11/18 04:00 03/11/18 08:00 03/11/18 12:00 Temperature 98.1 F 97.8 F 98.9 F Pulse Rate 72 75 90 Respiratory Rate 16 18 16 Blood Pressure 129/62 139/79 192/106 H Pulse Oximetry 90 L 93 L 91 L Intake & Output 03/10/18 03/11/18 03/11/18 18:59 06:59 18:59 Intake Total 1000 / 1000 1000 / 1000 Balance 1000 / 1000 1000 / 1000 Weight 52.163 kg 52.163 kg Intake: IV 1000 / 1000 1000 / 1000 NS Inj 1,000 ML @ Wide Open IV. 1000 / 1000 SIG BOLUS ONE Rx#:[id number] Other: # Voids 1 # Incontinent Voids 1 Date of Last Bowel Movement 03/06/18 Weight On Admission 52.163 kg Narrative: GENERAL: Thin chronically ill appearing female who looks older than stated age, in no acute distress. Asleep but easily awakens to voice. SKIN: Warm and dry. HEENT: Atraumatic. Normocephalic. Pupils equal and round. No scleral icterus. No injection or drainage. No nasal bleeding or discharge. Mucous membranes pink and moist. NECK: Trachea midline. CARDIOVASCULAR: Regular rate and rhythm. No murmur auscultated. RESPIRATORY: No accessory muscle use. Clear to auscultation. Breath sounds equal bilaterally. GASTROINTESTINAL: Abdomen +well healed surgical scar, mildly firm, diffusely tender to palpation, nondistended. No rebound or guarding. Hypoactive bowel sounds. MUSCULOSKELETAL: Extremities without clubbing, cyanosis, or edema. No obvious deformities. NEUROLOGICAL: Awake and alert. No obvious cranial nerve deficits. Motor grossly within normal limits. Able to move all extremities spontaneously. Normal speech. PSYCHIATRIC: Calm and cooperative. Results - Labs CBC & Chem 7: 03/11/18 06:10 03/11/18 06:10 Laboratory Results - last 24 hr 03/10/18 03/10/18 03/10/18 16:25 16:25 16:25 WBC 8.0 RBC 4.92 Hgb 13.7 Hct 42.4 MCV 86.2 MCH 27.9 MCHC 32.3 RDW 16.5 Plt Count 323 MPV 8.9 Neut % (Auto) 48.5 Lymph % (Auto) 38.4 [place] % (Auto) 11.1 H Eos % (Auto) 1.7 Baso % (Auto) 0.3 Neut # (Auto) 3.9 Lymph # (Auto) 3.1 [place] # (Auto) 0.9 Eos # (Auto) 0.1 Baso # (Auto) 0.0 WBC Differential . Differential Comment Auto diff final PT 10.6 INR 1.0 APTT 27.5 Sodium 139 Potassium 4.0 Chloride 101 Carbon Dioxide 29.1 Anion Gap 9 BUN 19 H Creatinine 0.83 Estimated GFR 70 L POC Glucose Random Glucose 90 Calcium 8.9 Total Bilirubin 0.4 AST 20 ALT 14 Alkaline Phosphatase 103 Total Protein 8.3 H Albumin 3.1 L Lipase 58 L 03/11/18 03/11/18 03/11/18 06:10 06:10 08:59 WBC 5.9 RBC 4.04 Hgb 11.3 L D Hct 35.0 MCV 86.6 MCH 27.9 MCHC 32.2 RDW 16.7 Plt Count 258 MPV 9.4 Neut % (Auto) 40.4 Lymph % (Auto) 43.3 [place] % (Auto) 12.1 H Eos % (Auto) 3.4 Baso % (Auto) 0.8 Neut # (Auto) 2.4 Lymph # (Auto) 2.5 [place] # (Auto) 0.7 Eos # (Auto) 0.2 Baso # (Auto) 0.0 WBC Differential . Differential Comment Auto diff final PT INR APTT Sodium 143 Potassium 3.7 Chloride 109 H D Carbon Dioxide 27.5 Anion Gap 7 BUN 15 Creatinine 0.61 Estimated GFR Greater than 89 POC Glucose 54 L Random Glucose 51 L Calcium 7.8 L D Total Bilirubin AST ALT Alkaline Phosphatase Total Protein Albumin Lipase 03/11/18 03/11/18 09:21 13:09 WBC RBC Hgb Hct MCV MCH MCHC RDW Plt Count MPV Neut % (Auto) Lymph % (Auto) [place] % (Auto) Eos % (Auto) Baso % (Auto) Neut # (Auto) Lymph # (Auto) [place] # (Auto) Eos # (Auto) Baso # (Auto) WBC Differential Differential Comment PT INR APTT Sodium Potassium Chloride Carbon Dioxide Anion Gap BUN Creatinine Estimated GFR POC Glucose 100 82 Random Glucose Calcium Total Bilirubin AST ALT Alkaline Phosphatase Total Protein Albumin Lipase - Imaging Impressions Abdomen/Pelvis CT 03/10/18 16:15 CONCLUSION: 1. Diffusely dilated small bowel loops, unchanged from prior. Stool-filled colon possibly representing an element of constipation/hypodynamic ileus. 2. No pneumoperitoneum. No significant change from prior. Assessment and Plan - Plan 63-year-old female with past medical history significant for chronic pain and methadone use, congestive heart failure and COPD presents the emergency department for evaluation of abdominal pain times 5 days. The patient reports her last bowel movement was on . Abdominal pain/constipation/? Ileus CT of the abdomen/pelvis shows diffusely dilated small bowel loops, unchanged from prior. Stool-filled colon possibly representing an element of constipation /hypodynamic ileus. Likely secondary to chronic opiate use, recurrent admissions for same. Patient needs to curtail narcotic use as outpatient. 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 Lactulose 30mg daily. Dulcolax suppository x 1 now. Fleets enema and dulcolax suppository prn Monitor closely, if symptoms do not improve consider general surgery consult Chronic pain/opioid abuse Patient reports taking 170 mg of methadone daily. Nurse verified with clinic this am. Resume Methadone 170mg daily CHF/COPD, not decompensated Patient not on any home medications Echo on 04/09/16 showed an EF of 55-60% monitor respiratory status supplemental oxygen as needed Hypoglycemia BS 54 start on D5 monitor with accucheks hypoglycemia protocol DVT prophylaxis Heparin Discussed Condition With: patient, nursing staff, Dr. Connor Discharge Planning: Not ready for discharge.
[2018-03-11 15:25] LABS: Bacteria,Urine Occasional /hpf; Bilirubin,Urine Negative (Negative); Clarity,Urine Hazy (Clear); Color,Urine Yellow (Yellw/Straw); Glucose,Urine (UA) Negative (Negative); Leukocyte Esterase,Urine Moderate (Negative); Mucus,Urine Moderate /lpf (Occasional); Nitrite,Urine Negative (Negative); Squamous Epithelial Cell,Urine 9 /hpf (0-5); Urobilinogen,Urine 4 or Greater mg/dL (Less than 2)
[2018-03-11] MEDS ORDERED: Magnesium Citrate Liq 300 ML Bottle PO ONE (16:20)
[2018-03-11] MEDS ORDERED: Sod Phosphate/Sod Biphosphate (Adult) Enema 133 ML Bottle RECTAL PRN (20:16)
[2018-03-11] MEDS: Heparin - SQ 10,000 UNITS/ML Vial SQ SCH (20:34)
--- NOTE | 2018-03-12 07:19 | P.PN ---
Subjective Interval history: Follow-up on patient with opioid-induced constipation. Patient seen and examined. Patient had small hard pebble-like bowel movement. She was unable to tolerate clear liquid diet yesterday secondary to emesis. She is continued to have ongoing nausea and episodes of vomiting. She reports mild abdominal discomfort. She denies any fever or chills. She denies any chest pain or shortness of breath. Physical Exam Vital signs: Vital Signs 03/11/18 08:00 03/11/18 12:00 03/11/18 18:09 Temperature 97.8 F 98.9 F 98.9 F Pulse Rate 75 90 90 Respiratory Rate 18 16 16 Blood Pressure 139/79 192/106 H 175/98 H Pulse Oximetry 93 L 91 L 95 03/11/18 18:46 03/11/18 19:30 03/11/18 20:00 Temperature 97.8 F Pulse Rate 75 78 Respiratory Rate 18 16 Blood Pressure 151/75 H 177/86 H Pulse Oximetry 96 91 L 03/12/18 00:00 03/12/18 04:00 Temperature 98.8 F Pulse Rate 110 H 96 H Respiratory Rate 18 17 Blood Pressure 154/93 H 157/81 H Pulse Oximetry 96 96 Intake & Output 03/11/18 03/12/18 03/12/18 18:59 06:59 18:59 Intake Total 1000 / 1000 Balance 1000 / 1000 Intake: IV 1000 / 1000 Other: # Voids 2 Date of Last Bowel Movement 03/12/18 # Bowel Movements 1 Narrative: GENERAL: Thin chronically ill appearing female who looks older than stated age, in no acute distress. Awake and alert. SKIN: Warm and dry. HEENT: Atraumatic. Normocephalic. Pupils equal and round. No scleral icterus. No injection or drainage. No nasal bleeding or discharge. Mucous membranes pink and moist. NECK: Trachea midline. CARDIOVASCULAR: Regular rate and rhythm. No murmur auscultated. RESPIRATORY: No accessory muscle use. Clear to auscultation. Breath sounds equal bilaterally. GASTROINTESTINAL: Abdomen +well healed surgical scar, mildly firm, mild diffuse tenderness to palpation. Mildly distended. No rebound or guarding. Hypoactive bowel sounds. MUSCULOSKELETAL: Extremities without clubbing, cyanosis, or edema. No obvious deformities. NEUROLOGICAL: Awake and alert. No obvious cranial nerve deficits. Motor grossly within normal limits. Able to move all extremities spontaneously. Normal speech. PSYCHIATRIC: Calm and cooperative. Results - Labs CBC & Chem 7: 03/11/18 06:10 03/11/18 06:10 Laboratory Results - last 24 hr 03/11/18 03/11/18 03/11/18 06:10 06:10 08:59 WBC 5.9 RBC 4.04 Hgb 11.3 L D Hct 35.0 MCV 86.6 MCH 27.9 MCHC 32.2 RDW 16.7 Plt Count 258 MPV 9.4 Neut % (Auto) 40.4 Lymph % (Auto) 43.3 [place] % (Auto) 12.1 H Eos % (Auto) 3.4 Baso % (Auto) 0.8 Neut # (Auto) 2.4 Lymph # (Auto) 2.5 [place] # (Auto) 0.7 Eos # (Auto) 0.2 Baso # (Auto) 0.0 WBC Differential . Differential Comment Auto diff final Sodium 143 Potassium 3.7 Chloride 109 H D Carbon Dioxide 27.5 Anion Gap 7 BUN 15 Creatinine 0.61 Estimated GFR Greater than 89 POC Glucose 54 L Random Glucose 51 L Calcium 7.8 L D Urine Color Urine Clarity Urine pH Ur Specific [place] Urine Protein Urine Glucose (UA) Urine Ketones Urine Occult Blood Urine Nitrate Urine Bilirubin Urine Urobilinogen Ur Leukocyte Esterase Urine RBC Urine WBC Ur Squamous Epith Cells Urine Bacteria Urine Mucus Micro UA Comment Ur Microscopic Review Urine Culture Comments 03/11/18 03/11/18 03/11/18 09:21 13:09 14:55 WBC RBC Hgb Hct MCV MCH MCHC RDW Plt Count MPV Neut % (Auto) Lymph % (Auto) [place] % (Auto) Eos % (Auto) Baso % (Auto) Neut # (Auto) Lymph # (Auto) [place] # (Auto) Eos # (Auto) Baso # (Auto) WBC Differential Differential Comment Sodium Potassium Chloride Carbon Dioxide Anion Gap BUN Creatinine Estimated GFR POC Glucose 100 82 Random Glucose Calcium Urine Color Yellow Urine Clarity Hazy H Urine pH 5.0 Ur Specific [place] 1.020 Urine Protein Negative Urine Glucose (UA) Negative Urine Ketones Trace H Urine Occult Blood Negative Urine Nitrate Negative Urine Bilirubin Negative Urine Urobilinogen 4 or greater Ur Leukocyte Esterase Moderate H Urine RBC 4 H Urine WBC 6 H Ur Squamous Epith Cells 9 Urine Bacteria Occasional H Urine Mucus Moderate H Micro UA Comment Culture not ind Ur Microscopic Review Not Reportable Urine Culture Comments Culture not ind 03/11/18 03/11/18 03/12/18 16:32 20:24 04:00 WBC RBC Hgb Hct MCV MCH MCHC RDW Plt Count MPV Neut % (Auto) Lymph % (Auto) [place] % (Auto) Eos % (Auto) Baso % (Auto) Neut # (Auto) Lymph # (Auto) [place] # (Auto) Eos # (Auto) Baso # (Auto) WBC Differential Differential Comment Sodium Potassium Chloride Carbon Dioxide Anion Gap BUN Creatinine Estimated GFR POC Glucose 87 100 102 Random Glucose Calcium Urine Color Urine Clarity Urine pH Ur Specific [place] Urine Protein Urine Glucose (UA) Urine Ketones Urine Occult Blood Urine Nitrate Urine Bilirubin Urine Urobilinogen Ur Leukocyte Esterase Urine RBC Urine WBC Ur Squamous Epith Cells Urine Bacteria Urine Mucus Micro UA Comment Ur Microscopic Review Urine Culture Comments Assessment and Plan - Plan 63-year-old female with past medical history significant for chronic pain and methadone use, congestive heart failure and COPD presents the emergency department for evaluation of abdominal pain times 5 days. The patient reports her last bowel movement was on . Abdominal pain/constipation/? Ileus CT of the abdomen/pelvis shows diffusely dilated small bowel loops, unchanged from prior. Stool-filled colon possibly representing an element of constipation /hypodynamic ileus. Likely secondary to chronic opiate use, recurrent admissions for same. Patient needs to curtail narcotic use as outpatient. 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 Currently on IVF, continue. Consult GI, appreciate assistance. May benefit from Relistor. Will defer to GI. Continue with aggressive bowel management May need NG tube placement continue with antiemetics prn Monitor for BM Chronic pain/opioid abuse Patient reports taking 170 mg of methadone daily. Nurse verified with clinic. Continue on Methadone 170mg daily continue with PT CHF/COPD, not decompensated Patient not on any home medications Echo on 04/09/16 showed an EF of 55-60% monitor respiratory status monitor fluid status supplemental oxygen as needed Hypoglycemia BS 54 started on D5, continue monitor with accucheks hypoglycemia protocol DVT prophylaxis Heparin Discussed Condition With: patient, nursing staff, Dr. Connor Discharge Planning: Not ready for discharge. Discharge pending clinical improvement and GI clearance.
[2018-03-12] MEDS ORDERED: Methylnaltrexone Inj 12 MG/0.6 ML Vial SQ ONE (09:09)
[2018-03-12] MEDS: Senna/Docusate Sodium 8.6/50 MG Tablet PO SCH ×2 (09:11→20:01)
[2018-03-12] MEDS: Heparin - SQ 10,000 UNITS/ML Vial SQ SCH ×2 (09:12→20:01)
[2018-03-12] MEDS: Methadone 10 MG Tablet PO SCH (09:12)
[2018-03-12] MEDS: Bisacodyl 10 MG Supp RECTAL PRN (09:17)
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
--- NOTE | 2018-03-12 14:46 | XR ---
EXAM DATE: 03/12/2018 12:17 PM EDT AGE/SEX: 63 years / Female INDICATIONS: Constipation. CLINICAL DATA: This is the patient's initial encounter. Patient reports that signs and symptoms have been present for 1 month and indicates a pain score of 0/10. MEDICAL/SURGICAL HISTORY: . Chronic obstructive pulmonary disease. Stroke. . Splenectomy COMPARISON: [facility] [place], SMALL BOWEL W GASTROGRAFIN, 02/06/2018. . FINDINGS: Today's exam is compared to the prior small bowel Gastrografin enema. The bowel gas pattern is nonsp ecific with some mildly to moderately dilated loops of small bowel throughout the mid abdomen. The co jaclyn is nondistended. There is some stool throughout the colon. This bowel gas pattern is very similar to the previous small bowel examination. The recent previous small bowel examination demonstrated no mechanical obstruction. CONCLUSION: Nonspecific bowel gas pattern with multiple mildly to moderately dilated loops of small bowel through out the mid abdomen. This is very similar to the recent prior small bowel series which demonstrated n o mechanical obstruction. Electronically signed by: Pietro Chen MD 03/12/2018 2:45 PM EDT
[2018-03-12] MEDS: Dextrose 5% in Water Inj 1,000 ML IV.CONT SCH (15:10)
[2018-03-13] MEDS: Heparin - SQ 10,000 UNITS/ML Vial SQ SCH (08:09)
[2018-03-13] MEDS: Methadone 10 MG Tablet PO SCH (08:09)
[2018-03-13] MEDS: Senna/Docusate Sodium 8.6/50 MG Tablet PO SCH (08:09)
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
[2018-03-13] MEDS: Dextrose 5% in Water Inj 1,000 ML IV.CONT SCH (10:11)
--- NOTE | 2018-03-13 10:27 | P.PN ---
Subjective Interval history: Follow-up on patient with opioid-induced constipation. Patient seen and examined. Patient states she thinks she has had 5 bowel movements since yesterday. She reports her abdominal discomfort is much improved. She is able to tolerate clear liquid diet. Discussed with nursing staff, no adverse events noted. She is interested in possible [facility] placement if she was accepted. She currently lives with her son and [id number]. Physical Exam Vital signs: Vital Signs 03/12/18 11:47 03/12/18 13:06 03/12/18 16:33 Temperature 97.6 F 97.9 F Pulse Rate 97 H 78 85 Respiratory Rate 18 16 16 Blood Pressure 121/81 105/64 Pulse Oximetry 96 92 L 03/12/18 19:33 03/12/18 20:19 03/13/18 00:00 Temperature 98.5 F 98.4 F Pulse Rate 85 86 93 H Respiratory Rate 16 18 16 Blood Pressure 112/62 136/65 Pulse Oximetry 94 L 96 03/13/18 04:00 03/13/18 08:36 03/13/18 09:27 Temperature 97.6 F 98.0 F Pulse Rate 87 88 91 H Respiratory Rate 16 16 19 Blood Pressure 114/54 L 121/68 Pulse Oximetry 95 93 L 97 Intake & Output 03/12/18 03/13/18 03/13/18 18:59 06:59 18:59 Intake Total 1000 / 1000 940 / 940 Balance 1000 / 1000 940 / 940 Intake: IV 1000 / 1000 D5W Inj 1,000 ML @ 42 mls/hr IV 1000 / 1000 .CONT .[id number] [facility] Rx#:[id number] Oral 940 / 940 Other: # Voids 2 Date of Last Bowel Movement 03/12/18 03/12/18 # Bowel Movements 3 3 Narrative: GENERAL: Thin chronically ill appearing female who looks older than stated age, in no acute distress. Awake and alert. Appears comfortable. SKIN: Warm and dry. No rash. HEENT: Atraumatic. Normocephalic. Pupils equal and round. No scleral icterus. No injection or drainage. No nasal bleeding or discharge. Mucous membranes pink and moist. NECK: Trachea midline. CARDIOVASCULAR: Regular rate and rhythm. No murmur auscultated. RESPIRATORY: No accessory muscle use. Clear to auscultation. Breath sounds equal bilaterally. GASTROINTESTINAL: Abdomen +well healed surgical scar. Abdomen soft, nondistended , nontender. No rebound or guarding. +BS. MUSCULOSKELETAL: Extremities without clubbing, cyanosis, or edema. No obvious deformities. NEUROLOGICAL: Awake and alert. No obvious cranial nerve deficits. Motor grossly within normal limits. Able to move all extremities spontaneously. Normal speech. PSYCHIATRIC: Calm and cooperative. Results - Labs CBC & Chem 7: 03/11/18 06:10 03/11/18 06:10 Laboratory Results - last 24 hr 03/12/18 03/12/18 03/12/18 12:49 16:49 21:02 POC Glucose 80 80 102 03/13/18 02:58 POC Glucose 81 - Imaging Impressions Abdomen X-Ray 03/12/18 12:17 CONCLUSION: Nonspecific bowel gas pattern with multiple mildly to moderately dilated loops of small bowel throughout the mid abdomen. This is very similar to the recent prior small bowel series which demonstrated no mechanical obstruction. Assessment and Plan - Plan 63-year-old female with past medical history significant for chronic pain and methadone use, congestive heart failure and COPD presents the emergency department for evaluation of abdominal pain times 5 days. The patient reports her last bowel movement was on . Abdominal pain/constipation/? Ileus CT of the abdomen/pelvis shows diffusely dilated small bowel loops, unchanged from prior. Stool-filled colon possibly representing an element of constipation /hypodynamic ileus. Likely secondary to chronic opiate use, recurrent admissions for same. Patient needs to curtail narcotic use as outpatient. 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 No N/V. Denies any abdominal pain. Will advance to soft diet. GI following, appreciate assistance. Recommends fiber gummies and fluid hydration. Okay to discharge from GI standpoint if patient able to tolerate advance diet. Continue with aggressive bowel management continue with antiemetics prn Chronic pain/opioid abuse Patient reports taking 170 mg of methadone daily. Nurse verified with clinic. Continue on Methadone 170mg daily. Lengthy discussion today with patient at the bedside regarding needing to titrate down off of methadone. continue with PT CHF/COPD, not decompensated Patient not on any home medications Echo on 04/09/16 showed an EF of 55-60% monitor respiratory status monitor fluid status supplemental oxygen as needed Hypoglycemia BS 54 started on D5, continue monitor with accucheks hypoglycemia protocol Deconditioned Hx of CVA with residual weakness Patient interested in [facility] placement if it is an option. Discussed with case management who is assisting with discharge planning. DVT prophylaxis Heparin Discussed Condition With: patient, nursing staff, Dr. Connor, GI service Discharge Planning: Possible discharge later today if patient is able to tolerate advanced diet
--- NOTE | 2018-03-13 11:40 | P.DS ---
Date of admission: 03/10/18 19:04 Primary care physician: UNKNOWN Attending physician on discharge: Elizabeth Connor Anticipated date of discharge: 03/13/18 Brief History from admission: 63-year-old female with past medical history significant for chronic pain and methadone use, congestive heart failure and COPD presents the emergency department for evaluation of abdominal pain times 5 days. The patient reports her last bowel movement was on . She denies any abdominal bloating/ swelling. No nausea/vomiting. She was able to eat breakfast this morning without incident. No chest pain or shortness of breath. No fevers/chills. No lateralizing signs/symptoms. Patient update on day of discharge: Follow-up on patient with opioid-induced constipation. Patient seen and examined. Patient states she thinks she has had 5 bowel movements since yesterday. She reports her abdominal discomfort is much improved. She is able to tolerate clear liquid diet. Discussed with nursing staff, no adverse events noted. She is interested in possible [facility] placement if she was accepted. She currently lives with her son and [id number]. DS: Diagnosis - Discharge Diagnosis (1) Constipation due to opioid therapy Status: Acute (2) Nausea & vomiting Status: Acute (3) Opioid dependence Status: Acute (4) Ileus Status: Acute DS: Summary Hospital Course: Patient admitted with opioid-induced constipation. CT of the abdomen and pelvis revealed diffusely dilated small bowel loops, stool-filled colon possibly representing element of constipation/hypodynamic ileus. Patient with a history of chronic pain on methadone 170 mg daily. Patient also with significant hypoglycemia with blood sugar of 54 likely due to poor oral intake from persistent nausea and vomiting secondary to constipation. She was started on D5 and followed on hypoglycemic protocol. Patient was started on aggressive bowel regimen. She was seen in consultation by GI. Patient improved clinically. She had multiple bowel movements. She was able to tolerate diet. She was cleared for discharge from GI perspective. - Time Spent with Patient Total time spent providing and/or coordinating discharge services: Greater than 30 minutes - Quality: VTE Deep Vein Thrombosis/Pulmonary Embolism Present on Admission: No Exam Vital signs: Vital Signs 03/12/18 11:47 03/12/18 13:06 03/12/18 16:33 Temperature 97.6 F 97.9 F Pulse Rate 97 H 78 85 Respiratory Rate 18 16 16 Blood Pressure 121/81 105/64 Pulse Oximetry 96 92 L 03/12/18 19:33 03/12/18 20:19 03/13/18 00:00 Temperature 98.5 F 98.4 F Pulse Rate 85 86 93 H Respiratory Rate 16 18 16 Blood Pressure 112/62 136/65 Pulse Oximetry 94 L 96 03/13/18 04:00 03/13/18 08:36 03/13/18 09:27 Temperature 97.6 F 98.0 F Pulse Rate 87 88 91 H Respiratory Rate 16 16 19 Blood Pressure 114/54 L 121/68 Pulse Oximetry 95 93 L 97 Intake & Output 03/12/18 03/13/18 03/13/18 18:59 06:59 18:59 Intake Total 1000 / 1000 940 / 940 Balance 1000 / 1000 940 / 940 Intake: IV 1000 / 1000 D5W Inj 1,000 ML @ 42 mls/hr IV 1000 / 1000 .CONT .[id number] [facility] Rx#:[id number] Oral 940 / 940 Other: # Voids 2 Date of Last Bowel Movement 03/12/18 03/12/18 # Bowel Movements 3 3 Narrative: GENERAL: Thin chronically ill appearing female who looks older than stated age, in no acute distress. Awake and alert. Appears comfortable. SKIN: Warm and dry. No rash. HEENT: Atraumatic. Normocephalic. Pupils equal and round. No scleral icterus. No injection or drainage. No nasal bleeding or discharge. Mucous membranes pink and moist. NECK: Trachea midline. CARDIOVASCULAR: Regular rate and rhythm. No murmur auscultated. RESPIRATORY: No accessory muscle use. Clear to auscultation. Breath sounds equal bilaterally. GASTROINTESTINAL: Abdomen +well healed surgical scar. Abdomen soft, nondistended , nontender. No rebound or guarding. +BS. MUSCULOSKELETAL: Extremities without clubbing, cyanosis, or edema. No obvious deformities. NEUROLOGICAL: Awake and alert. No obvious cranial nerve deficits. Motor grossly within normal limits. Able to move all extremities spontaneously. Normal speech. PSYCHIATRIC: Calm and cooperative. Results Procedures completed during hospitalization: None Labs on day of discharge: Labs from last 24 hours 03/13/18 03/13/18 03/12/18 10:29 02:58 21:02 POC Glucose 84 81 102 03/12/18 03/12/18 16:49 12:49 POC Glucose 80 80 - Impressions ITS Impressions Abdomen/Pelvis CT 03/10/18 16:15 CONCLUSION: 1. Diffusely dilated small bowel loops, unchanged from prior. Stool-filled colon possibly representing an element of constipation/hypodynamic ileus. 2. No pneumoperitoneum. No significant change from prior. Abdomen X-Ray 03/12/18 12:17 CONCLUSION: Nonspecific bowel gas pattern with multiple mildly to moderately dilated loops of small bowel throughout the mid abdomen. This is very similar to the recent prior small bowel series which demonstrated no mechanical obstruction. Discharge Plan - Discharge Disposition Patient Disposition: 01 Discharge Home - Discharge Condition Condition: Stable - Discharge Order Discharge Orders: Discharge Order (Routine); Ordered 03/13/18 Ordered By: Raysa Early - Discharge Details Anticipated Discharge Date: 03/13/18 Discharge Comment: Discharge pending able to tolerate diet and GI clearance - Physicians Team Primary Care Provider: UNKNOWN, Attending Provider: Elizabeth Connor Other Providers: Anthony Ramirez MD ; Rehab,[facility] ; [facility], [place]
[2018-03-13 15:02] VITALS: O2SAT 95
[2018-03-13 15:47] VITALS: BP 115/54; PULSE 94; RESP 16; TEMP 98.1
== END 2018-03-13 18:13 | disposition home or self-care (01) ==
LOC: NEDA 14:22 → NEPC 14:22 → NEPHCDU 21:08 → NEDH 03-13 10:23 → NEPHCDU 03-13 10:24
PROVIDERS: ADMIT Hospitalist; ATTEND Hospitalist